=== PATIENT | female | born 1935 | race Caucasian/White ===

== ENCOUNTER 2018-08-15 18:04 | Emergency (ER) | payer MEDICARE, MEDICAID ==
[2018-08-15] MEDS ORDERED: Albuterol/Ipratropium 3.0-0.5 MG/3 ML Neb Soln NEB ONE (18:09)
[2018-08-15 18:57] LABS: CHLORIDE,CL 99 mmol/L (98-107); SODIUM,NA 135 mmol/L (136-145)
--- NOTE | 2018-08-15 19:23 | EDM.PDOC ---
ED HPI GENERAL MEDICAL PROBLEM - General Chief Complaint: Respiratory Problem Stated Complaint: SOB, cough, congestion Time Seen by Provider: 08/15/18 18:14 Source of Information: Reports: Patient History Limitations: Reports: No Limitations - History of Present Illness INITIAL COMMENTS - FREE TEXT/NARRATIVE: Patient comes to ER complaining of persistent feeling of phlegm in central chest since being diagnosed with pneumonia around [place]. Was inpatient at [facility] at the time, discharged New Years Day. She complains of feeling congested since then. Mucinex does not help. No fevers noted. No chills. No significant weight change. She is eating and drinking well per self report. Intermittent frontal headache noted, currently headache-free. No other acute pain changes. At times feels SOB. Denies any specific pattern with this and admits that it is a long standing problem and does not have an acute change. Can feel "hot" when she has her SOB spells. These go away on their own. Denies weakness. No /UTI complaints. No neuro changes other than intermittent tingling in both feet. She was told by [facility] that she may have some early peripheral neuropathy. Cough is not significantly productive. No GI changes. No other acute changes per patient during ROS. - Related Data Allergies Allergy/AdvReac Type Severity Reaction Status Date / Time codeine Allergy Cannot Verified 08/15/18 18:05 Remember Home Meds: Home Meds Cholecalciferol (Vitamin D3) [Vitamin D3] 2,000 unit PO DAILY 10/01/14 [History] Fish Oil/[place]-3 Fatty Acids [Fish Oil] 3 cap PO DAILY 10/01/14 [History] Flaxseed/Omega3,6,9/Fatty Acid [Flax Seed Oil 1,300 mg Softgel] 1,200 mg PO DAILY 10/01/14 [History] Fluticasone Propionate [Flonase] 2 sprays NASBOTH DAILY PRN 10/01/14 [History] Garlic 1,000 mg PO DAILY 10/01/14 [History] Omeprazole [Prilosec] 20 mg PO DAILY 10/01/14 [History] amLODIPine [Norvasc] 5 mg PO DAILY 10/01/14 [History] Albuterol/Ipratropium [DuoNeb 3.0-0.5 MG/3 ML] 3 ml NEB ASDIRECTED PRN 06/18/18 [History] Aspirin 81 mg PO DAILY 06/18/18 [History] Chlorpheniramine/Dextromethorp [Cough-Cold Hbp Tablet] 1 each PO Q4HR 06/18/18 [ History] Losartan [Cozaar] 50 mg PO DAILY 08/15/18 [History] Metoprolol Succinate [Toprol Xl] 50 mg PO DAILY 08/15/18 [History] Past Medical History HEENT History: Reports: Allergic Rhinitis, Hard of Hearing, Impaired Vision, Other (See Below) Other HEENT History: She has been noncompliant with her glasses. No current hearing aide therapy with moderate bilateral presbycusis Cardiovascular History: Reports: Cardiomyopathy, High Cholesterol, Hypertension , PVD, Other (See Below) Other Cardiovascular History: Mild bilateral carotid occlusive disease. Grade 1 diastolic dysfunction by echocardiogram with mild left ventricular hypertrophy. Respiratory History: Reports: Bronchitis, Recurrent, COPD, Intubation, Previous , Pneumonia, Recurrent Gastrointestinal History: Reports: Colon Polyp, Gastritis, GERD, Hemorrhoids, Hiatal Hernia, Other (See Below) Other Gastrointestinal History: History of recurrent diffuse colonic polyps since 2002 including removal of mild dysplastic rectal polyp at that time with history of tubular adenomas, hyperplastic colonic polyps and adenomatous colonic polyps. Anal warts. Genitourinary History: Reports: None, Urinary Incontinence MEDICAL AIDE History: Reports: Dysfunctional Uterine Bleeding, , Spontaneous Other MEDICAL AIDE History: First trimester SAB requiring D&C as below. Otherwise, Full term without complications during pregnancies or deliveries. Menopause at age 48. Possible previous dysfunctional uterine bleeding? Musculoskeletal History: Reports: Arthritis, Back Pain, Chronic, Osteoarthritis , Osteoporosis, RA Neurological History: Reports: Concussion, Head Trauma, Neuropathy, Peripheral ( suspected), Other (See Below) Other Neuro History: Head concussion age 8. Cerebral microvascular disease by CT scan. Psychiatric History: Reports: Anxiety, Depression Endocrine/Metabolic History: Reports: Osteopenia, Osteoporosis Hematologic History: Reports: None Immunologic History: Reports: None Oncologic (Cancer) History: Reports: None Dermatologic History: Reports: None - Infectious Disease History Other Infectious Disease History: She is uncertain about her childhood diseases. - Past Surgical History Head Surgeries/Procedures: Reports: None HEENT Surgical History: Reports: None, Oral Surgery, Other (See Below) Other HEENT Surgeries/Procedures: Complete upper dental extractions with multiple lower dental extractions Cardiovascular Surgical History: Reports: None Respiratory Surgical History: Reports: None GI Surgical History: Reports: Colonoscopy, Polypectomy, Other (See Below) Other GI Surgeries/Procedures: Multiple excision of colonic polyps as above with colonoscopies on 05/08/10, and 12/11/02. Hemorrhoidectomy with colonoscopy in 2002. Appendectomy at an unknown age Female Surgical History: Reports: D&C, Other (See Below) Other Female Surgeries/Procedures: D&C for SAB as above with possible additional D&C secondary to dysfunctional uterine bleeding? Endocrine Surgical History: Reports: None Neurological Surgical History: Reports: None Musculoskeletal Surgical History: Reports: None Oncologic Surgical History: Reports: None Dermatological Surgical History: Reports: None - Past Imaging History Past Imaging History: Reports: Cardiac Echo (Last echocardiogram on 10/11/17 with ejection fraction of 5560 percent with otherwise findings as above. Previous echocardiogram on 01/26/11.), Carotid US (01/26/11), CAT Scan (CT of the abdomen and pelvis on 05/03/07.), DEXA Scan (01/26/11 and 10/08/06), HIDA Scan ( Negative on 10/14/06), Mammogram (Last on 01/05/11), MRI (MRI of the abdomen and pelvis on 05/14/08.), Ultrasound (Gallbladder ultrasound on 04/15/11 and 10/01/06. ) Social & Family History - Family History HEENT: Reports: None Respiratory: Reports: None GI: Reports: Colon Polyps, Other (See Below) Other GI Family History: Multiple family members on maternal and paternal side with history of colonic polyps, including in sister : Reports: None OBGYN: Reports: None Musculoskeletal: Reports: None Neurological: Reports: CVA, Other (See Below) Other Neurological Family History: Sister with CVA Psychiatric: Reports: None Endocrine/Metabolic: Reports: Hypothyroidism, Other (See Below) Other Endocrine/Metabolic Family History: Son with hypothyroidism. Hematologic: Reports: None Immunologic: Reports: None Dermatologic: Reports: None Oncologic: Reports: Breast, Other (See Below) Other Oncologic Family History: Mother with fatal breast cancer at age 73 - Tobacco Use Smoking Status *Q: Former Smoker (quit age 59) - Caffeine Use Caffeine Use: Reports: Coffee (4 cups per day), Tea (1 cup per day). 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 ED EXAM, GENERAL - Physical Exam Exam: See Below Exam Limited By: No Limitations General Appearance: Alert, WD/WN, No Apparent Distress, Anxious Eye Exam: Bilateral Eye: EOMI, PERRL Ears: Normal External Exam Nose: Normal Inspection Throat/Mouth: Normal Inspection, Normal Oropharynx, Normal Voice, No Airway Compromise Head: Atraumatic, Normocephalic Neck: Normal Inspection, Supple, Non-Tender, Full Range of Motion. No: Lymphadenopathy (L), Lymphadenopathy (R) Respiratory/Chest: No Respiratory Distress, Lungs Clear, No Accessory Muscle Use , Chest Non-Tender, Decreased Breath Sounds (throughout) Cardiovascular: Normal Peripheral Pulses, Regular Rate, Rhythm, No Edema, No Murmur Peripheral Pulses: 2+: Radial (L), Radial (R) GI/Abdominal: Normal Bowel Sounds, Soft, Non-Tender, No Distention (Female) Exam: Deferred Rectal (Female) Exam: Deferred Back Exam: Normal Inspection. No: CVA Tenderness (L), CVA Tenderness (R), Paraspinal Tenderness, Vertebral Tenderness Extremities: Normal Inspection, Non-Tender, No Pedal Edema, Normal Capillary Refill Neurological: Alert, Oriented, Normal Cognition, No Motor/Sensory Deficits Psychiatric: Anxious Skin Exam: Warm, Dry, Intact, Normal Color Course - Vital Signs Last Recorded V/S: Last Vital Signs Temp 36.6 C 08/15/18 18:05 Pulse 74 08/15/18 18:35 Resp 18 08/15/18 18:35 BP 134/78 08/15/18 18:35 Pulse Ox 94 L 08/15/18 18:35 - Orders/Labs/Meds Orders: Active Orders 24 hr Category Date Time Status RT Aerosol Therapy [RC] ASDIRECTED Care 08/15/18 18:10 Active Chest 2V [CR] Stat Exams 08/15/18 18:21 Taken UA W/MICROSCOPIC [URIN] Stat Lab 08/15/18 18:21 Ordered Labs: Laboratory Tests 08/15/18 08/15/18 08/15/18 Range/Units 18:30 18:30 18:30 WBC 6.8 (4.0-10.2) K/uL RBC 4.24 (3.77-5.09) M/uL Hgb 13.3 (11.7-15.5) g/dL Hct 39.9 (34.0-46.0) % MCV 94.1 (84.0-98.0) fL MCH 31.4 (28.2-33.3) pg MCHC 33.3 (31.7-36.0) g/dL RDW 13.0 (11.2-14.1) % Plt Count 249 (150-350) K/uL Neut % (Auto) 56.6 (45.0-80.0) % Lymph % (Auto) 30.7 (10.0-50.0) % [place] % (Auto) 7.6 (2.0-14.0) % Eos % (Auto) 4.1 (0.0-5.0) % Baso % (Auto) 1.0 (0.0-2.0) % Neut # (Auto) 3.87 (1.40-7.00) K/uL Lymph # (Auto) 2.10 (0.50-3.50) K/uL [place] # (Auto) 0.52 (0.00-1.00) K/uL Eos # (Auto) 0.28 (0.00-0.50) K/uL Baso # (Auto) 0.07 (0.00-0.20) K/uL Sodium 135 L (136-145) mmol/L Potassium 3.9 (3.5-5.1) mmol/L Chloride 99 (98-107) mmol/L Carbon Dioxide 31.9 (21.0-32.0) mmol/L BUN 10 (7-18) mg/dL Creatinine 0.64 (0.51-1.17) mg/dL Est Cr Clr Drug Dosing TNP Estimated GFR (MDRD) > 60 mL/min Glucose 93 (74-106) mg/dL Lactic Acid 0.9 (0.4-2.0) mmol/L Calcium 9.1 (8.5-10.1) mg/dL Magnesium 2.0 (1.8-2.4) mg/dL Total Bilirubin 0.3 (0.2-1.0) mg/dL AST 17 (15-37) U/L ALT 30 (12-78) U/L Alkaline Phosphatase 74 (46-116) IU/L NT-Pro-B Natriuret Pep 171 H (0-125) pg/mL Total Protein 7.4 (6.4-8.2) g/dL Albumin 3.5 (3.4-5.0) g/dL Meds: Medications Discontinued Medications Generic Name Dose Route Start Last Admin Trade Name Freq PRN Reason Stop Dose Admin Albuterol/Ipratropium 3 ml 08/15/18 18:09 08/15/18 18:14 Duoneb 3.0-0.5 Mg/3 Ml NEB 08/15/18 18:10 3 ml ONETIME ONE Administration - Radiology Interpretation Free Text/Narrative:: Xray showed chronic changes consistent with COPD. No focal pneumonia/CHF noted. No pneumo. - Re-Assessments/Exams Free Text/Narrative Re-Assessment/Exam: CBC/Chem unremarkable. Na 135 which is usual level for patient. BNP 171 Vital signs stable. Chest xray unremarkable for acute changes. Suspect patient's complaints of central airway congestion likely due to COPD and persistent effects from recent pneumonia. She declined Prednisone. Reviewing patient's meds it appears that she uses her DuoNebs infrequently and complains that her medicine at home is outdated. A single box of DuoNebs was provided from ER stock. She is instructed to use them three times a day for the next week and was told that she could use them 4x daily if needed. She is to see if that improves her above complaint. Patient encouraged to follow up at clinic Wednesday or Wednesday. Suspect anxiety component. Departure - Departure Time of Disposition: 20:09 Disposition: Home, Self-Care 01 Condition: Good Clinical Impression: COPD (chronic obstructive pulmonary disease) Qualifiers: COPD type: COPD with acute lower respiratory infection Qualified Code(s): J44.0 - Chronic obstructive pulmonary disease with acute lower respiratory infection - Discharge Information *PRESCRIPTION DRUG MONITORING PROGRAM REVIEWED*: Not Applicable *COPY OF PRESCRIPTION DRUG MONITORING REPORT IN PATIENT WESLY: Not Applicable Instructions: Chronic Obstructive Pulmonary Disease Exacerbation, [id number] , Peripheral Neuropathy Referrals: Bridget Rivera, [employer] [facility] [facility]ER [Primary Care Provider] - Forms: ED Department Discharge Additional Instructions: Make follow up appointment at clinic for Wednesday or next Wednesday for recheck. Use your nebs 3 -4 times a day this week and see if it helps your sensation of increased mucus. You were given a new pack of nebulizer medication tonight. Get additional prescription update from clinic when you follow up . Watch for additional changes and follow up as needed if you have problems. - My Orders Last 24 Hours: My Active Orders 08/15/18 18:10 RT Aerosol Therapy [RC] ASDIRECTED 08/15/18 18:21 Chest 2V [CR] Stat UA W/MICROSCOPIC [URIN] Stat - Assessment/Plan Last 24 Hours: My Active Orders 08/15/18 18:10 RT Aerosol Therapy [RC] ASDIRECTED 08/15/18 18:21 Chest 2V [CR] Stat UA W/MICROSCOPIC [URIN] Stat
[2018-08-16 02:15] VITALS: BP 135/69
== END 2018-08-15 20:32 | disposition home or self-care (01) ==
LOC: LL.ED 18:04
DX: J44.0 Chronic obstructive pulmonary disease with (acute) lower respiratory infection (principal); E78.00 Pure hypercholesterolemia, unspecified; I10 Essential (primary) hypertension; Z88.5 Allergy status to narcotic agent; Z79.899 Other long term (current) drug therapy; Z87.891 Personal history of nicotine dependence
CPT/HCPCS: 36415; 71046; 80053; 81001; 83605; 83735; 83880; 85025; 94640; 99285; J7620-GY

== ENCOUNTER 2019-01-28 14:23 | Emergency (ER) | payer MEDICARE, MEDICAID ==
[2019-01-28 14:37] VITALS: BP 174/78; PULSE 72
--- NOTE | 2019-01-28 15:19 | EDM.PDOC ---
ED HPI GENERAL MEDICAL PROBLEM - General Chief Complaint: General Stated Complaint: general c/o not feeling good Time Seen by Provider: 01/28/19 15:14 Source of Information: Reports: Patient History Limitations: Reports: No Limitations - History of Present Illness INITIAL COMMENTS - FREE TEXT/NARRATIVE: Patient is a 83-year-old who arrived to the ER by herself she drove herself in complaining of not feeling well feeling sick with chills and no pain minimal shortness of breath and without restless feeling Onset: Sudden Duration: Minutes:, Improving Location: Reports: Generalized Severity: Mild Improves with: Reports: Rest Worsens with: Reports: None Associated Symptoms: Reports: No Other Symptoms 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 - Related Data Allergies Allergy/AdvReac Type Severity Reaction Status Date / Time codeine Allergy Cannot Verified 01/28/19 14:32 Remember Home Meds: Home Meds Cholecalciferol (Vitamin D3) [Vitamin D3] 2,000 unit PO DAILY 10/01/14 [History] Fish Oil/[place]-3 Fatty Acids [Fish Oil] 3 cap PO DAILY 10/01/14 [History] Flaxseed/Omega3,6,9/Fatty Acid [Flax Seed Oil 1,300 mg Softgel] 1,200 mg PO DAILY 10/01/14 [History] Fluticasone Propionate [Flonase] 2 sprays NASBOTH DAILY PRN 10/01/14 [History] Garlic 1,000 mg PO DAILY 10/01/14 [History] Omeprazole [Prilosec] 20 mg PO DAILY 10/01/14 [History] Albuterol/Ipratropium [DuoNeb 3.0-0.5 MG/3 ML] 3 ml NEB ASDIRECTED PRN 06/18/18 [History] Aspirin 81 mg PO DAILY 06/18/18 [History] Chlorpheniramine/Dextromethorp [Cough-Cold Hbp Tablet] 1 each PO Q4HR PRN [History] Losartan [Cozaar] 50 mg PO DAILY 08/15/18 [History] Metoprolol Succinate [Toprol Xl] 50 mg PO DAILY 08/15/18 [History] Past Medical History HEENT History: Reports: Allergic Rhinitis, Hard of Hearing, Impaired Vision, Other (See Below) Other HEENT History: She has been noncompliant with her glasses. No current hearing aide therapy with moderate bilateral presbycusis Cardiovascular History: Reports: Cardiomyopathy, High Cholesterol, Hypertension , PVD, Other (See Below) Other Cardiovascular History: Mild bilateral carotid occlusive disease. Grade 1 diastolic dysfunction by echocardiogram with mild left ventricular hypertrophy. Respiratory History: Reports: Bronchitis, Recurrent, COPD, Intubation, Previous , Pneumonia, Recurrent Gastrointestinal History: Reports: Colon Polyp, Gastritis, GERD, Hemorrhoids, Hiatal Hernia, Other (See Below) Other Gastrointestinal History: History of recurrent diffuse colonic polyps since 2002 including removal of mild dysplastic rectal polyp at that time with history of tubular adenomas, hyperplastic colonic polyps and adenomatous colonic polyps. Anal warts. 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 Otherwise, Full term without complications during pregnancies or deliveries. Menopause at age 48. Possible previous dysfunctional uterine bleeding? Musculoskeletal History: Reports: Arthritis, Back Pain, Chronic, Osteoarthritis , Osteoporosis, RA Neurological History: Reports: Concussion, Head Trauma, Neuropathy, Peripheral, Other (See Below) Other Neuro History: Head concussion age 8. Cerebral microvascular disease by CT scan. Psychiatric History: Reports: Anxiety, Depression Endocrine/Metabolic History: Reports: Osteopenia, Osteoporosis Hematologic History: Reports: None Immunologic History: Reports: None Oncologic (Cancer) History: Reports: None Dermatologic History: Reports: None - Infectious Disease History Other Infectious Disease History: She is uncertain about her childhood diseases. - Past Surgical History Head Surgeries/Procedures: Reports: None HEENT Surgical History: Reports: None, Oral Surgery, Other (See Below) Other HEENT Surgeries/Procedures: Complete upper dental extractions with multiple lower dental extractions Cardiovascular Surgical History: Reports: None Respiratory Surgical History: Reports: None GI Surgical History: Reports: Colonoscopy, Polypectomy, Other (See Below) Other GI Surgeries/Procedures: Multiple excision of colonic polyps as above with colonoscopies on 05/08/10, and 12/11/02. Hemorrhoidectomy with colonoscopy in 2002. Appendectomy at an unknown age Female Surgical History: Reports: D&C, Other (See Below) Other Female Surgeries/Procedures: D&C for SAB as above with possible additional D&C secondary to dysfunctional uterine bleeding? Endocrine Surgical History: Reports: None Neurological Surgical History: Reports: None Musculoskeletal Surgical History: Reports: None Oncologic Surgical History: Reports: None Dermatological Surgical History: Reports: None - Past Imaging History Past Imaging History: Reports: Cardiac Echo (Last echocardiogram on 10/11/17 with ejection fraction of 5560 percent with otherwise findings as above. Previous echocardiogram on 01/26/11.), Carotid US (01/26/11), CAT Scan (CT of the abdomen and pelvis on 05/03/07.), DEXA Scan (01/26/11 and 10/08/06), HIDA Scan ( Negative on 10/14/06), Mammogram (Last on 01/05/11), MRI (MRI of the abdomen and pelvis on 05/14/08.), Ultrasound (Gallbladder ultrasound on 04/15/11 and 10/01/06. ) Social & Family History - Family History HEENT: Reports: None Respiratory: Reports: None GI: Reports: Colon Polyps, Other (See Below) Other GI Family History: Multiple family members on maternal and paternal side with history of colonic polyps, including in sister : Reports: None OBGYN: Reports: None Musculoskeletal: Reports: None Neurological: Reports: CVA, Other (See Below) Other Neurological Family History: Sister with CVA Psychiatric: Reports: None Endocrine/Metabolic: Reports: Hypothyroidism, Other (See Below) Other Endocrine/Metabolic Family History: Son with hypothyroidism. 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, 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.) ED [facility] GENERAL - Review of Systems Review Of Systems: See Below Constitutional: Reports: Chills Respiratory: Reports: Shortness of Breath Cardiovascular: Reports: No Symptoms Endocrine: Reports: No Symptoms GI/Abdominal: Reports: No Symptoms : Reports: No Symptoms Musculoskeletal: Reports: No Symptoms Skin: Reports: No Symptoms Neurological: Reports: No Symptoms Psychiatric: Reports: No Symptoms Hematologic/Lymphatic: Reports: No Symptoms Immunologic: Reports: No Symptoms ED EXAM, GENERAL - Physical Exam Exam: See Below Exam Limited By: No Limitations General Appearance: Alert, WD/WN, No Apparent Distress, Anxious, Mild Distress Ears: Normal External Exam, Normal Canal, Hearing Grossly Normal, Normal TMs Ear Exam: Bilateral Ear: Auricle Normal, Canal Normal, TM normal Nose: Normal Inspection, Normal Mucosa, No Blood Throat/Mouth: Normal Inspection, Normal Lips, Normal Teeth, Normal Gums, Normal Oropharynx, Normal Voice, No Airway Compromise Head: Atraumatic, Normocephalic Neck: Normal Inspection, Supple, Non-Tender, Full Range of Motion Respiratory/Chest: No Respiratory Distress, Lungs Clear, Normal Breath Sounds, No Accessory Muscle Use, Chest Non-Tender Cardiovascular: Normal Peripheral Pulses, Regular Rate, Rhythm, No Edema, No Gallop, No JVD, No Murmur, No Rub GI/Abdominal: Normal Bowel Sounds, Soft, Non-Tender, No Organomegaly, No Distention, No Abnormal Bruit, No Mass Back Exam: Decreased Range of Motion Extremities: Normal Inspection, Normal Range of Motion, Non-Tender, Normal Capillary Refill, No Pedal Edema Neurological: Alert, Oriented, CN II-XII Intact, Normal Cognition, Normal Gait, Normal Reflexes, No Motor/Sensory Deficits Psychiatric: Anxious Skin Exam: Warm, Dry, Intact, Normal Color, No Rash Lymphatic: No Adenopathy Course - Vital Signs Last Recorded V/S: Last Vital Signs Temp 97.3 F 01/28/19 14:36 Pulse 72 01/28/19 14:36 Resp 20 01/28/19 14:36 BP 174/78 H 01/28/19 14:36 Pulse Ox 96 01/28/19 14:36 - Orders/Labs/Meds Orders: Active Orders 24 hr Category Date Time Status Chest 2V [CR] Stat Exams 01/28/19 14:43 Taken Labs: Laboratory Tests 01/28/19 01/28/19 01/28/19 Range/Units 14:57 15:05 15:05 WBC 9.3 (4.0-10.2) K/uL RBC 4.31 (3.77-5.09) M/uL Hgb 14.1 (11.7-15.5) g/dL Hct 42.1 (34.0-46.0) % MCV 97.7 D (84.0-98.0) fL MCH 32.7 (28.2-33.3) pg MCHC 33.5 (31.7-36.0) g/dL RDW 12.6 (11.2-14.1) % Plt Count 329 D (150-350) K/uL Neut % (Auto) 66.3 (45.0-80.0) % Lymph % (Auto) 23.9 (10.0-50.0) % [place] % (Auto) 7.6 (2.0-14.0) % Eos % (Auto) 1.7 (0.0-5.0) % Baso % (Auto) 0.5 (0.0-2.0) % Neut # (Auto) 6.19 (1.40-7.00) K/uL Lymph # (Auto) 2.23 (0.50-3.50) K/uL [place] # (Auto) 0.71 (0.00-1.00) K/uL Eos # (Auto) 0.16 (0.00-0.50) K/uL Baso # (Auto) 0.05 (0.00-0.20) K/uL Sodium 135 L (136-145) mmol/L Potassium 4.1 (3.5-5.1) mmol/L Chloride 98 (98-107) mmol/L Carbon Dioxide 33.7 H (21.0-32.0) mmol/L BUN 11 (7-18) mg/dL Creatinine 0.68 (0.51-1.17) mg/dL Est Cr Clr Drug Dosing 46.47 mL/min Estimated GFR (MDRD) > 60 mL/min Glucose 109 H (74-106) mg/dL Calcium 8.7 (8.5-10.1) mg/dL Total Bilirubin 0.3 (0.2-1.0) mg/dL AST 16 (15-37) U/L ALT 24 (12-78) U/L Alkaline Phosphatase 72 (46-116) IU/L Total Protein 7.5 (6.4-8.2) g/dL Albumin 3.6 (3.4-5.0) g/dL Specimen Type Urinvoid Urine Color Yellow Urine Appearance Clear Urine pH 5.5 (5.0-9.0) Ur Specific [place] 1.015 (1.005-1.030) Urine Protein Negative (NEGATIVE) mg/dL Urine Glucose (UA) Negative (NEGATIVE) mg/dL Urine Ketones Negative (NEGATIVE) mg/dL Urine Occult Blood Negative (NEGATIVE) Urine Nitrite Negative (NEGATIVE) Urine Bilirubin Negative (NEGATIVE) Urine Urobilinogen 0.2 (0.2-1.0) E.U./dL Ur Leukocyte Esterase Negative (NEGATIVE) Urine RBC 0-5 /HPF Urine WBC 0-5 /HPF Ur Epithelial Cells Few /LPF Urine Bacteria Few (NONE TO FEW) /HPF Departure - Departure Time of Disposition: 15:50 Disposition: Home, Self-Care 01 Condition: Fair Clinical Impression: Weakness generalized - Discharge Information *PRESCRIPTION DRUG MONITORING PROGRAM REVIEWED*: No *COPY OF PRESCRIPTION DRUG MONITORING REPORT IN PATIENT WESLY: No Referrals: Josué Mendez MD [Primary Care Provider] - Forms: ED Department Discharge Care Plan Goals: Patient will be sent home she is to follow-up with her primary next week return to the ER if worsening - My Orders Last 24 Hours: My Active Orders 01/28/19 14:43 Chest 2V [CR] Stat - Assessment/Plan Last 24 Hours: My Active Orders 01/28/19 14:43 Chest 2V [CR] Stat
[2019-01-28 15:24] LABS: CHLORIDE,CL 98 mmol/L (98-107); SODIUM,NA 135 mmol/L (136-145)
== END 2019-01-28 16:05 | disposition home or self-care (01) ==
LOC: LL.ED 14:23
DX: R53.1 Weakness (principal); I10 Essential (primary) hypertension; K21.9 Gastro-esophageal reflux disease without esophagitis; M19.90 Unspecified osteoarthritis, unspecified site; Z79.82 Long term (current) use of aspirin; Z79.899 Other long term (current) drug therapy; Z88.5 Allergy status to narcotic agent; Z87.891 Personal history of nicotine dependence
CPT/HCPCS: 36415; 71046; 80053; 81001; 85025; 99282; 99283-25

== ENCOUNTER 2020-05-16 12:05 | Day surgery (SDC) | payer MEDICARE, MEDICAID ==
[~2020-05-16 12:05] MED LIST: Sodium Chloride 0.9% 10 ML Syringe FLUSH PRN
[2020-05-16] MEDS ORDERED: Lactated Ringers 1,000 ML IV SCH (13:00)
[2020-05-16] MEDS ORDERED: Propofol 200 MG/20 ML SDV ONE ×2 (13:43→13:50)
--- NOTE | 2020-05-16 13:49 | PCM.PN ---
- General Info Date of Service: 05/16/20 - Review of Systems Systems Review Comment:: 84-year-old female referred for colonoscopy. She has been having some rectal bleeding. She states her last colonoscopy was about 7 years ago. She denies any other symptoms at this time. She states her bleeding was painless. She is medically stable to proceed today. I have reviewed her previous H&P and no significant changes are noted. I have discussed the proposed colonoscopy with the patient. Risks such as but not limited to bleeding and GI injury reviewed. She agrees to proceed. - Patient Data Vitals - Most Recent: Last Vital Signs Temp 96.8 F L 05/16/20 12:54 Pulse 77 05/16/20 12:54 Resp 20 05/16/20 12:54 BP 128/69 05/16/20 12:54 Pulse Ox 97 05/16/20 12:54 Weight - Most Recent: 76.204 kg Med Orders - Current: Current Medications Lactated Ringer's (Ringers, Lactated) 1,000 mls @ 125 mls/hr IV ASDIRECTED KORTNEY Last Admin: 05/16/20 12:55 Dose: 125 mls/hr Documented by: Sodium Chloride (Saline Flush) 10 ml FLUSH ASDIRECTED PRN PRN Reason: Keep Vein Open Discontinued Medications Propofol (Diprivan 20 Ml) Confirm Administered Dose 400 mg .ROUTE .STK-MED ONE Stop: 05/16/20 13:44 Sepsis Event Note - Focused Exam Vital Signs: Vital Signs Temp Pulse Resp BP Pulse Ox 05/16/20 12:54 96.8 F L 77 20 128/69 97 - Problem List Review Problem List Initiated/Reviewed/Updated: Yes - My Orders Last 24 Hours: My Active Orders 05/16/20 13:00 Lactated Ringers [Ringers, Lactated] 1,000 ml IV ASDIRECTED - Assessment Assessment:: Hematochezia - Plan Plan:: Colonoscopy
--- NOTE | 2020-05-16 14:35 | PCM.OPNOTE ---
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 Rectal polyp Extensive sigmoid diverticulosis Pre Op Diagnosis: Hematochezia Post-Op Diagnosis: Rectal mass-probable carcinoma. Rectal polyp. Sigmoid diverticulosis Anesthesia Technique: [facility] [place] Primary Surgeon: Chris Brasher Pathology: Biopsies of rectal mass Rectal polyp EBL in mLs: 4 Complications: None Condition: Good
--- NOTE | 2020-05-16 15:31 | OR ---
Date of Procedure: 05/16/2020 PREOPERATIVE DIAGNOSIS: Hematochezia. POSTOPERATIVE DIAGNOSES: 1. Rectal mass - probable carcinoma. 2. Rectal polyp. 3. Extensive sigmoid diverticulosis. OPERATION PERFORMED: Colonoscopy with biopsy and polypectomy. INDICATIONS FOR SURGERY: This 84-year-old female was referred for a colonoscopy because of recent episodes of painless rectal bleeding. FINDINGS: In the patient's rectum, there is a hard mass with central ulceration on the anterior wall of the rectum. Its distal aspect extends to approximately 2 cm from the anal verge and it is 5 to 7 cm in size. The mass is hard, raised, and grossly consistent with a carcinoma. In the more proximal rectum, approximately 10 cm from the anal verge, there is a 1-cm soft semipedunculated polyp. The patient also has extensive diverticulosis of the sigmoid colon with multiple large diverticula and some tortuosity. The more proximal colon appears normal except for scattered diverticula. DESCRIPTION OF PROCEDURE: The patient was taken to the operating room. She was given intravenous sedation, and with her in the left lateral decubitus position, digital rectal exam was performed. The colonoscope was inserted into the rectum. Retroflexed examination of the rectal canal was performed. In the distal rectum, the above-described mass is identified. Multiple biopsies of this mass were taken to obtain a diagnosis. The scope was then advanced further in the rectum where the above-described rectal polyp was identified. This was removed with a cautery snare and retrieved into a polyp trap. The scope was then carefully advanced under direct visualization through the remainder of the colon. Passage of the scope through the sigmoid region was difficult because of extensive diverticulosis, was eventually able to be safely performed with careful scope manipulation. The cecum was reached and carefully identified including the appendiceal orifice and ileocecal valve. The light was also noted to transilluminate the abdominal wall in the right lower quadrant. After examining the cecum, the scope was slowly withdrawn sequentially re-examining the colonic segments until the entire colon and rectum had been fully examined. The scope was removed and the patient was taken from the operating room in satisfactory condition. ESTIMATED BLOOD LOSS: 4 mL. COMPLICATIONS: None. PROGNOSIS: Good. RASHI Brasher MD /[id number]
[2020-05-16 17:28] VITALS: BP 151/77; PULSE 79
== END 2020-05-16 16:10 | disposition home or self-care (01) ==
LOC: LL.SDS 12:05
PROVIDERS: ATTEND Surgery
DX: C20 Malignant neoplasm of rectum (principal); K57.30 Diverticulosis of large intestine without perforation or abscess without bleeding; D12.8 Benign neoplasm of rectum; J44.9 Chronic obstructive pulmonary disease, unspecified; I10 Essential (primary) hypertension; Z01.812 Encounter for preprocedural laboratory examination; Z20.828 Contact with and (suspected) exposure to other viral communicable diseases; Z87.891 Personal history of nicotine dependence; Z79.899 Other long term (current) drug therapy
CPT/HCPCS: 00811; 45380; 45385; 88305; 88341; 88342; J2704; J7120; U0002

== ENCOUNTER 2020-07-18 13:55 | Inpatient (IN) | payer MEDICARE, MEDICAID ==
[2020-07-18] MEDS ORDERED: Omeprazole 20 MG Cap.CR PO PRN (16:11)
[2020-07-18] MEDS ORDERED: oxyCODONE 5 MG Tab PO PRN (16:11)
[2020-07-18] MEDS ORDERED: Loperamide 2 MG Tab PO PRN (16:11)
[2020-07-18] MEDS ORDERED: Aspirin 325 MG Tab.EC PO PRN (16:11)
[2020-07-18] MEDS ORDERED: Fluticasone Propionate Nasal Spray 16 GM Bottle NASBOTH PRN (16:11)
[2020-07-18] MEDS ORDERED: Magnesium Oxide 400 MG Tab PO SCH (16:15)
--- NOTE | 2020-07-18 16:40 | PCM.HP.2 ---
H&P History of Present Illness - General Date of Service: 07/18/20 Admit Problem/Dx: Admission Diagnosis/Problem Admission Diagnosis/Problem Weakness Source of Information: Patient, Family (Patient's daughter), Old Records ([facility] chart/EMR), Other (Limited transfer records from [facility]) History Limitations: Reports: No Limitations - History of Present Illness Initial Comments - Free Text/Narative: The patient was brought to our facility via private automobile by her daughter for direct admission into our swing bed unit for further strengthening through physical therapy and Occupational Therapy. Note that the patient did have a distal rectal adenocarcinoma removed with subsequent colostomy placement on 07/12/2020 as below. Her colostomy is performing well. No recent history of abdominal pain, heartburn, nausea, diarrhea, melena, gross hematochezia, or any food intolerance, including fatty foods, etc.. She has been having some nonspecific mild dysuria with her Montes catheter discontinued a couple days ago. She denies any gross hematuria, colic, or other UTI symptoms. The patient denies any chest pain/pressure, heart flutter, dizziness, orthostasis, orthopnea, diaphoresis, paresthesias, recent decreased exercise tolerance, or any other anginal-type symptoms. The patient also denies any recent fever, wheezing, dyspnea, etc., although a mild nonproductive cough during the last couple of days with negative COVID-19 test at [facility] prior to transfer to this facility. She denies any recent significant postoperative pain, etc. and has not been using her oxycodone for the last few days. Onset of Symptoms: Reports: Gradual Symptom Onset Date: 07/12/20 Duration of Symptoms: Reports: Improving Location: Reports: Other (No significant postoperative pain) Quality: Reports: Ache Severity: Mild Improves with: Reports: None Worsens with: Reports: None Context: Reports: Other (Recent surgery as above). Denies: Trauma Associated Symptoms: Reports: Cough, Weakness (Normal postoperative). Denies: Confusion, Chest Pain, cough w sputum, Diaphoresis, Fever/Chills, Headaches, Loss of Appetite, Malaise, Nausea/Vomiting, Shortness of Breath Rectal Pain Score (Numeric/FACES): 3 - Related Data Allergies/Adverse Reactions: Allergies Allergy/AdvReac Type Severity Reaction Status Date / Time codeine Allergy Cannot Verified 05/16/20 13:20 Remember Home Medications: Home Meds Fluticasone Propionate [Flonase] 2 sprays NASBOTH BID PRN 10/01/14 [History] Omeprazole [Prilosec] 20 mg PO DAILY PRN 10/01/14 [History] Aspirin 81 mg PO DAILY 06/18/18 [History] Losartan [Cozaar] 50 mg PO DAILY 08/15/18 [History] Metoprolol Succinate [Toprol Xl] 50 mg PO DAILY 08/15/18 [History] Oxybutynin [Oxybutynin ER] 5 mg PO BEDTIME 05/15/20 [History] Albuterol [Take Home: Albuterol 18 GM, 1 INH Pack] 1 - 2 puff INH Q4HR PRN 05/16/20 [History] Acetaminophen 500 mg PO Q4H PRN 07/18/20 [History] Aspirin [Aspirin EC] 1 tab PO Q4H PRN 07/18/20 [History] Cholecalciferol (Vitamin D3) [Vitamin D3] 25 mcg PO DAILY 07/18/20 [History] Garlic 1 cap PO DAILY 07/18/20 [History] L. Acidophilus/L.bulgaricus [Lactobacillus Tablet] 1 cap PO DAILY 07/18/20 [History] Loperamide [Imodium] 1 mg PO ASDIRECTED PRN 07/18/20 [History] Magnesium Oxide 250 mg PO Q2D 07/18/20 [History] Multivit-Min/Iron/Folic/Lutein [Centrum Silver Women Tablet] 1 tab PO DAILY 07/18/20 [History] Nystatin [Nystatin Crm] 1 applic TOP BID 07/18/20 [History] [place]-3 Fatty Acids/Fish Oil [Fish Oil 1,000 mg Capsule] 1 cap PO DAILY 07/18/20 [History] Sennosides/Docusate Sodium [Senna Plus 8.6-50 mg Tablet] 1 tab PO BID PRN 07/18/20 [History] Vitamin E 1 cap PO DAILY 07/18/20 [History] oxyCODONE 5 mg PO Q6H PRN 07/18/20 [History] Past Medical History HEENT History: Reports: Allergic Rhinitis, Hard of Hearing, Impaired Vision, Other (See Below). Denies: Cataract, Glaucoma, Macular Degeneration, Otitis Media, Retinal Detachment Other HEENT History: She has been noncompliant with her glasses. No current hearing aide therapy with moderate bilateral presbycusis Cardiovascular History: Reports: Arrhythmia, High Cholesterol, Hypertension. Denies: Afib, Aneurysm, Blood Clots/VTE/DVT, CAD, Cardiomyopathy, Heart Failure, Heart Murmur, VA, Syncope Other Cardiovascular History: Mild bilateral carotid occlusive disease. Grade 1 diastolic dysfunction by echocardiogram with mild left ventricular hypertrophy. History of PSVT. Respiratory History: Reports: Bronchitis, Recurrent, COPD, Intubation, Previous, Pneumonia, Recurrent. Denies: Asthma, Intubation, Difficult, PE, Pneumothorax, Sleep Apnea, TB Gastrointestinal History: Reports: Chronic Constipation, Colon Polyp, Diverticulosis, GERD, GI Bleed. Denies: Celiac Disease, Cholelithiasis, Gastritis, Hepatitis, Hiatal Hernia, Inflammatory Bowel Disease, Irritable Bowel Syndrome, Jaundice, Pancreatitis, PUD Other Gastrointestinal History: Diffuse diverticulosis. 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 Previous minimal lower GI bleed secondary to this rectal adenocarcinoma, which was initially diagnosed on 05/16/2020 by colonoscopy as below. Note previous history of recurrent diffuse colonic polyps since 2002 including removal of mild dysplastic rectal polyp at that time with history of tubular adenomas, hyperplastic colonic polyps and adenomatous colonic polyps. Anal warts. Genitourinary History: Reports: Other (See Below). Denies: Acute Renal Failure, Chronic Renal Insuffiency, Renal Calculus, Retention, Urinary, STD, Urinary Incontinence, UTI, Recurrent Other Genitourinary History: urinary urgency COOK MANAGER History: Reports: Dysfunctional Uterine Bleeding, , Spontaneous : 3 Para: 2 LMP (Approximate): Other (See Below) Other OB/BYN History: First trimester SAB requiring D&C as below. Otherwise, Full term without complications during pregnancies or deliveries. Menopause at age 48. Possible previous dysfunctional uterine bleeding? Musculoskeletal History: Reports: Arthritis, Back Pain, Chronic, Neck Pain, Chronic, Osteoarthritis, Osteoporosis, RA, Other (See Below). Denies: Amputation, Fracture, Gout, SLE Other Musculoskeletal History: Mild to moderate kyphosis. Neurological History: Reports: Concussion, Head Trauma. Denies: Alzheimers Disease, Brain Injury, Cerebral Aneurysms, CVA, Migraines, MS, Neuropathy, Peripheral, Parkinson's, Seizure, TIA, Vertigo Other Neuro History: Head concussion age 8. Cerebral microvascular disease by CT scan. Psychiatric History: Reports: Anxiety, Depression. Denies: Abuse, Victim of, ADD, ADHD, Addiction, Alzheimers Disease, Dementia, Psych Hospitalization(s), Psychosis, PTSD, Suicide Attempt, Suicidal Ideation Endocrine/Metabolic History: Reports: Hypokalemia, Hypomagnesemia, Obesity/BMI 30+, Osteopenia, Osteoporosis, Other (See Below). Denies: Diabetes, Gestational, Diabetes, Type I, Diabetes, Type II, Diabetes Mellitus, Type 3c, Hypothyroidism, IDDM Other Endocrine/Metabolic History: Hypocalcemia. Hypoalbuminemia. Hematologic History: Reports: Anemia. Denies: B12 Deficiency, Blood Transfusion(s), Iron Deficiency Immunologic History: Reports: None. Denies: AIDS, HIV, SLE Oncologic (Cancer) History: Reports: Colon, Other (See Below). Denies: Basal Cell Carcinoma, Cervix, Hodgkin's Lymphoma, Leukemia, Lymphoma, Malignant Melanoma, Metastatic, Non-Hodgkin's Lymphoma, Ovarian, Squamous Cell Carcinoma, Uterine Other Oncologic History: Rectal adenocarcinoma as above. Dermatologic History: Reports: None. Denies: Eczema, Psoriasis - Infectious Disease History Infectious Disease History: Reports: Other (See Below). Denies: C-Difficile, Meningitis, Mononucleosis, MRSA, Novel Coronavirus, Rubella, TB, VRE Other Infectious Disease History: She is uncertain about her childhood diseases. - Past Surgical History Head Surgeries/Procedures: Reports: None HEENT Surgical History: Reports: Oral Surgery, Other (See Below). Denies: Adenoidectomy, Cataract Surgery, Eye Surgery, Laser Surgery, LASIK, Myringotomy w Tube(s), Naso-Sinus Surgery, Tonsillectomy Other HEENT Surgeries/Procedures: Complete upper teeth extraction with multiple lower teeth extractions in the patient only wearing upper dentures. Cardiovascular Surgical History: Reports: None. Denies: Varicose Respiratory Surgical History: Reports: None. Denies: Thoracentesis GI Surgical History: Reports: Appendectomy, Colon, Colonoscopy, Polypectomy, Other (See Below). Denies: Cholecystectomy, EGD, Hernia, Abdominal, Hernia, Inguinal, Hernia Repair/Other Other GI Surgeries/Procedures: Abdominal perineal resection with partial colectomy of the descending colon and mesorectal excision of distal rectal adenocarcinoma with concomitant colostomy placement on 07/12/2020. Multiple previous colonoscopies including previous polypectomies as above. Last colonoscopy on 05/16/2020 with evidence of recurrent distal rectal polyp and additional probable 2.5 cm distal rectal carcinoma requiring surgery as above. Previous colonoscopies on 05/08/2010 and 12/11/2012. Hemorrhoidectomy with colonoscopy in 2002. Appendectomy at an unknown age. Female Surgical History: Reports: D&C, Dilitation & Evacuation, Other (See Below). Denies: Breast Biopsy, Section, Hysterectomy, Salpingo- Oophorectomy, Tubal Ligation Other Female Surgeries/Procedures: D&Cs for SAB as above with possible additional D&C secondary to dysfunctional uterine bleeding. Endocrine Surgical History: Reports: None. Denies: Thyroid Biopsy Neurological Surgical History: Reports: None. Denies: C-Spine, Discectomy, Laminectomy, Lumbar Spine, Sacral Spine, Spinal Fusion, Thoracic Spine, Vertebroplasty Musculoskeletal Surgical History: Reports: None, Joint Replacement. Denies: Arthroscopic Procedure, Carpal Tunnel, Ganglion Cyst, ORIF, Shoulder Surgery Oncologic Surgical History: Reports: None Dermatological Surgical History: Reports: None - Past Imaging History Past Imaging History: Reports: Cardiac Echo (Last echocardiogram on 10/11/17 with ejection fraction of 5560 percent with otherwise findings as above. Previous echocardiogram on 01/26/11.), Carotid US (01/26/11), CAT Scan (CT of the abdomen and pelvis on 05/03/07.), DEXA Scan (01/26/11 and 10/08/06), HIDA Scan (Negative on 10/14/06), Mammogram (Last on 01/05/11), MRI (MRI of the abdomen and pelvis on 05/14/08.), Ultrasound (Gallbladder ultrasound on 04/15/11 and 10/01/06.) Social & Family History - Family History HEENT: Reports: Other (See Below). Denies: Glaucoma, Macular Degeneration, Retinal Detachment Other HEENT Family History: Food allergies in brother and sister. Cardiac: Denies: Afib, AICD, Aneurysm, Arrhythmia, Blood Clots/VTE/DVT, CAD, Cardiomyopathy, Heart Failure, High Cholesterol, Hypertension, VA, PVD/COD, Syncope Respiratory: Reports: None. Denies: Asthma, COPD, PE, Pneumothorax, Sleep Apnea GI: Reports: Colon Polyps, Other (See Below). Denies: Celiac Disease, Cholelithiasis, GERD, GI bleed, Inflammatory Bowel Disease, Irritable Bowel Syndrome, PUD Other GI Family History: Multiple family members on maternal and paternal side with history of colonic polyps, including in sister : Reports: None. Denies: Renal Calculus, Renal Disease/Insufficiency OBGYN: Reports: None. Denies: Dysfunctional uterine bleeding, Recurrent Spontaneous Musculoskeletal: Reports: None. Denies: Arthritis, Gout, Osteoarthritis, RA, SLE Neurological: Reports: CVA, Other (See Below). Denies: Alzheimers Disease, Cerebral Aneurysms, Dementia, Migraines, MS, Neuropathy, Peripheral, Parkinson's, Seizure, TIA, Vertigo Other Neurological Family History: Sister with CVA Psychiatric: Reports: None. Denies: Abuse, Victim of, ADD, ADHD, Anxiety, Depression, Psych Hospitalization(s), PTSD, Suicide Attempt Endocrine/Metabolic: Reports: Hypothyroidism, Other (See Below). Denies: Diabetes, Gestational, Diabetes, Type I, Diabetes, type II, Diabetes Mellitus, Type 3c, IDDM Other Endocrine/Metabolic Family History: Son with hypothyroidism. Hematologic: Reports: None. Denies: SLE Immunologic: Reports: None. Denies: AIDS, HIV, SLE Dermatologic: Reports: None. Denies: Eczema, Psoriasis Oncologic: Reports: Breast, Lung, Skin, Other (See Below). Denies: Cervix, Colon, Hodgkin's Lymphoma, Leukemia, Lymphoma, Non-Hodgkin's Lymphoma, Uterine Other Oncologic Family History: Mother with fatal breast cancer at age 73. Brother with unknown type of skin cancer in the facial region. Daughter with lung cancer at age 65 with history of tobacco use. - Tobacco Use Tobacco Use Status *Q: Former Tobacco User Tobacco Use Within Last Twelve Months: No Years of Tobacco use: 43 Packs/Tins Daily: 1 Packs/Tins Daily Comment: Smoked between ages 16 and 59. Used Tobacco, but Quit: Yes Smoking Cessation Information Provided To Patient: No Second Hand Smoke Exposure: No Second Hand Smoke Education Provided: No - Caffeine Use Caffeine Use: Reports: Coffee (4 Cups per day), Tea (1 cup/day). Denies: Energy Drinks, Soda - Alcohol Use Alcohol Use History: Yes Days Per Week of Alcohol Use: 0 Number of Drinks Per Day: 0 Number of Drinks Per Day Comment: History of DWI at age 59 with patient stopping all alcohol use since that time. Previous moderate alcohol use with patient denying previous abuse history, alcohol treatment, etc. 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 Exam - Exam Exam: See Below - Exam Quality Assessment: DVT Prophylaxis. No: Supplemental Oxygen, Central Line/PICC, Urinary Catheter, Skin Breakdown, Restraints General: Alert, Oriented, Cooperative HEENT: Conjunctiva Clear, EACs Clear, EOMI, Hearing Intact, Mucosa Moist & [place], Nares Patent, Normal Nasal Septum, Posterior Pharynx Clear, Pupils Equal, Pupils Reactive, TMs Clear, Other (Complete upper dentures with multiple missing teeth lowers and patient not wearing her partials.), PERRLA. No: Glasses Neck: Supple, Trachea Midline, Full Range of Motion, Carotid Bruit (Mild bilateral carotid bruits). No: Lymphadenopathy, Thyromegaly Lungs: Clear to Auscultation, Normal Respiratory Effort. No: Rub, Wheezing Cardiovascular: Regular Rate, Regular Rhythm, Normal S1, Normal S2. No: Systolic Murmur, Diastolic Murmur, Rubs, Gallop/S3, Gallop/S4 GI/Abdominal Exam: Normal Bowel Sounds, Soft, Non-Tender, No Organomegaly, No Distention, No Abnormal Bruit, No Mass, Pelvis Stable, Other (Obese. Left lower quadrant colostomy shows brown stool.). No: Guarding (Female) Exam: Deferred Rectal (Female) Exam: Deferred Back Exam: Full Range of Motion, Other (Moderate kyphosis). No: CVA Tenderness (L), CVA Tenderness (R), Muscle Spasm, Paraspinal Tenderness, Vertebral Tenderness Extremities: Normal Range of Motion, Non-Tender, Normal Capillary Refill, Pedal Edema (+1 bilateral pedal/pretibial edema). No: Kaylie's Sign Peripheral Pulses: 2+: Radial (L), Radial (R), Dorsalis Pedis (L), Dorsalis Pedis (R) Skin: Other (Operative site and perineum intact clean and dry by history) Neurological: Cranial Nerves Intact Psychiatric: Alert, Normal Affect, Normal Mood. No: Agitated, Hallucinations, Withdrawal Symptoms - Patient Data Lab Results Last 24 hrs: To be conducted in the a.m. on 07/19/2020. Imaging Impressions Last 24 hrs: None - Problem List (1) Rectal adenocarcinoma SNOMED Code(s): 774692677 ICD Code: C20 - MALIGNANT NEOPLASM OF RECTUM Status: Acute Priority: High Current Visit: Yes Onset Date: ~07/12/20 Problem Details: Recently extensive surgery with excision of rectal adenocarcinoma as above. Patient apparently has a follow-up appointment scheduled at [facility] in 1 week. Patient mated to swing bed for further strengthening, PT, OT, and wound care. (2) Weakness generalized SNOMED Code(s): 45071551 ICD Code: R53.1 - WEAKNESS Status: Acute Priority: Medium Current Visit: Yes Onset Date: ~07/12/20 Problem Details: Mild postoperative weakness requiring swing bed care as above. (3) COPD (chronic obstructive pulmonary disease) SNOMED Code(s): 16771449 ICD Code: J44.9 - CHRONIC OBSTRUCTIVE PULMONARY DISEASE, UNSPECIFIED Status: Chronic Priority: Medium Current Visit: Yes Problem Details: No significant COPD exacerbation although recent nonspecific nonproductive cough. Her inhalers will be changed to Combivent on a regular basis with additional Muc inex DM therapy. Consider chest x-ray depending on her clinical course. Note negative COVID-19 screen prior to transfer to this facility. Qualifiers: COPD type: COPD with acute lower respiratory infection Qualified Code(s): J44.0 - Chronic obstructive pulmonary disease with (acute) lower respiratory infection (4) Hypertension SNOMED Code(s): 02943637 ICD Code: I10 - ESSENTIAL (PRIMARY) HYPERTENSION Status: Chronic Priority : Medium Current Visit: Yes Problem Details: Continue to observe closely during this hospitalization. Qualifiers: Hypertension type: essential hypertension Qualified Code(s): I10 - Essential (primary) hypertension (5) Osteoarthritis SNOMED Code(s): 989391736 ICD Code: M19.90 - UNSPECIFIED OSTEOARTHRITIS, UNSPECIFIED SITE Status: Chronic Priority: Medium Current Visit: Yes Problem Details: Stable by history. Qualifiers: Osteoarthritis location: multiple joints Osteoarthritis type: primary (6) Peptic reflux disease SNOMED Code(s): 132821721 ICD Code: K21.9 - GASTRO-ESOPHAGEAL REFLUX DISEASE WITHOUT ESOPHAGITIS Status: Chronic Priority: Medium Current Visit: Yes Problem Details: No symptoms today and stable by history. Problem List Initiated/Reviewed/Updated: Yes Orders Last 24hrs: Active Orders 24 hr Category Date Time Status Patient Status [ADT] Routine ADT 07/18/20 16:05 Active Ambulate [RC] ASDIRECTED Care 07/18/20 16:05 Active Communication Order [RC] ROUTINE Care 07/18/20 16:14 Active Intake and Output [RC] QSHIFT Care 07/18/20 16:07 Active Oxygen Therapy [RC] PRN Care 07/18/20 16:05 Active RT Post Treatment Assessment [RC] Click to Edit Care 07/18/20 16:15 Active RT Pre-Treatment Assessment [RC] Click to Edit Care 07/18/20 16:15 Active VTE/DVT Education [RC] PER UNIT ROUTINE Care 07/18/20 16:05 Active Vital Signs [RC] PER UNIT ROUTINE Care 07/18/20 16:05 Active Consult to Case Management/Washcoat Wiper [CONS] Cons 07/18/20 16:05 Active Routine OT Evaluation and Treatment [CONS] Routine Cons 07/18/20 16:05 Active PT Evaluation and Treatment [CONS] Routine Cons 07/18/20 16:05 Active Mechanical Soft Diet [DIET] Diet 07/18/20 Dinner Active CBC WITH AUTO DIFF [HEME] Routine Lab 07/19/20 05:11 Ordered COMPREHENSIVE METABOLIC PN,CMP [CHEM] Routine Lab 07/19/20 05:11 Ordered CULTURE URINE [RM] Routine Lab 07/18/20 16:31 Ordered INR,PT,PROTHROMBIN TIME [COAG] Routine Lab 07/19/20 05:11 Ordered MAGNESIUM [CHEM] Routine Lab 07/19/20 05:11 Ordered PTT,PARTIAL THROMBOPLSTIN TIME [COAG] Routine Lab 07/19/20 05:11 Ordered TSH ULTRASENSITIVE [CHEM] Routine Lab 07/19/20 05:11 Ordered URIC ACID [CHEM] Routine Lab 07/19/20 05:11 Ordered URINALYSIS W/MICROSCOPIC [UA W/MICROSCOPIC] [URIN] Lab 07/18/20 16:30 Ordered Routine Acetaminophen [TylenoL] Med 07/18/20 16:15 Active 650 mg PO Q4H PRN Albuterol/Ipratropium [Combivent Respimat] Med 07/18/20 20:00 Active See Dose Instructions INH QID Aspirin Med 07/19/20 08:00 Ordered 81 mg PO DAILY Aspirin [Ecotrin] Med 07/18/20 16:11 Ordered 325 mg PO Q4H PRN Cholecalciferol (Vitamin D3) [Vitamin D3] Med 07/19/20 08:00 Ordered 25 mcg PO DAILY Dextromethorphan/guaiFENesin [Mucinex DM ER 600-30 MG] Med 07/18/20 18:00 Ordered 1 tab PO BID Docusate Sodium/Sennosides [Senna Plus] Med 07/18/20 16:11 Ordered 1 tab PO BID PRN Fluticasone Propionate [Flonase] Med 07/18/20 16:11 Ordered DOSE gm NASBOTH BID PRN Garlic [Garlic] Med 07/19/20 08:00 Ordered 1 cap PO DAILY L. Acidophilus/L.bulgaricus [Lactobacillus Tablet] Med 07/19/20 08:00 Ordered 1 cap PO DAILY Loperamide [Imodium] Med 07/18/20 16:11 Ordered 1 mg PO ASDIRECTED PRN Losartan [Cozaar] Med 07/19/20 08:00 Ordered 50 mg PO DAILY Magnesium Oxide [Magnesium Oxide] Med 07/18/20 16:15 Ordered 250 mg PO Q2D Metoprolol Succinate [Toprol XL] Med 07/19/20 08:00 Ordered 50 mg PO DAILY Multivit-Min/Iron/Folic/Lutein [Centrum Silver Women Med 07/19/20 08:00 Ordered Tablet] 1 tab PO DAILY Nystatin [Nystatin Crm] Med 07/18/20 18:00 Ordered DOSE gm TOP BID [place]-3 Fatty Acids/Fish Oil [Fish Oil 1,000 mg Capsule Med 07/19/20 08:00 Ordered ] 1 cap PO DAILY Omeprazole Med 07/18/20 16:11 Ordered 20 mg PO DAILY PRN Oxybutynin [Oxybutynin ER] Med 07/18/20 20:00 Ordered 5 mg PO BEDTIME Temazepam [Restoril] Med 07/18/20 16:05 Active 15 mg PO BEDTIME PRN Vitamin E [Vitamin E] Med 07/19/20 08:00 Ordered 1 cap PO DAILY oxyCODONE Med 07/18/20 16:11 Ordered 5 mg PO Q6H PRN Patient May Not [OM.PC] ASDIRECTED Oth 07/18/20 16:05 Ordered Resuscitation Status Routine Resus Stat 07/18/20 16:05 Ordered Medication Orders Acetaminophen (Tylenol) 650 mg PO Q4H PRN PRN Reason: Pain (Mild 1-3)/fever Albuterol/Ipratropium (Combivent Respimat) 0 gm INH QID [facility] Aspirin (Aspirin) 81 mg PO DAILY [facility] Aspirin (Ecotrin) 325 mg PO Q4H PRN PRN Reason: Headache Cholecalciferol (Vitamin D3) 25 mcg PO DAILY [facility] Fluticasone Propionate (Flonase) gm NASBOTH BID PRN PRN Reason: Congestion Guaifenesin/Dextromethorphan (Mucinex Dm Er 600-30 Mg) 1 tab PO BID [facility] Losartan Potassium (Cozaar) 50 mg PO DAILY [facility] Metoprolol Succinate (Toprol Xl) 50 mg PO DAILY [facility] Non-Formulary Medication (Garlic [Garlic]) 1 cap PO DAILY [facility] Non-Formulary Medication (L. Acidophilus/L.Bulgaricus [Lactobacillus Tablet]) 1 cap PO DAILY [facility] Non-Formulary Medication (Loperamide [Imodium]) 1 mg PO ASDIRECTED PRN PRN Reason: Diarrhea Non-Formulary Medication (Magnesium Oxide [Magnesium Oxide]) 250 mg PO Q2D [facility] Non-Formulary Medication (Multivit-Min/Iron/Folic/Lutein [Centrum Silver Women Tablet]) 1 tab PO DAILY [facility] Non-Formulary Medication ([place]-3 Fatty Acids/Fish Oil [Fish Oil 1,000 Mg Capsule]) 1 cap PO DAILY [facility] Non-Formulary Medication (Vitamin E [Vitamin E]) 1 cap PO DAILY [facility] Nystatin (Nystatin Crm) gm TOP BID [facility] Omeprazole (Omeprazole) 20 mg PO DAILY PRN PRN Reason: Heartburn Oxybutynin Chloride (Oxybutynin Er) 5 mg PO BEDTIME [facility] Oxycodone HCl (Oxycodone) 5 mg PO Q6H PRN PRN Reason: Pain Senna/Docusate Sodium (Senna Plus) 1 tab PO BID PRN PRN Reason: Constipation Temazepam (Restoril) 15 mg PO BEDTIME PRN PRN Reason: Sleep Assessment/Plan Comment:: As above. Extensive precautions were given to the patient and her daughter, who are in agreement with the treatment plan. Continue swing bed care with PT, OT, and strengthening. - Mortality Measure Prognosis:: Good
[2020-07-18] MEDS: Dextromethorphan/guaiFENesin 600-30 MG Tab.ER PO SCH (18:12)
[2020-07-18] MEDS: Nystatin Crm 30 GM Tube TOP SCH (18:13)
[2020-07-18] MEDS: Albuterol/Ipratropium 4 GM Inhalation Spray INH SCH (19:27)
[2020-07-18] MEDS: Oxybutynin 5 MG Tab.ER PO SCH (19:27)
[2020-07-19] MEDS: Temazepam 15 MG Cap PO PRN ×2 (00:36→21:35)
[2020-07-19] MEDS ORDERED: GARLIC PO SCH (08:00)
[2020-07-19] MEDS ORDERED: VITAMIN E 100 UNIT PO SCH (08:00)
[2020-07-19 08:01] LABS: PTT,PARTIAL THROMBOPLSTIN TIME 23.2 SEC (24.5-32.8)
[2020-07-19] MEDS: Albuterol/Ipratropium 4 GM Inhalation Spray INH SCH ×4 (08:07→19:29)
[2020-07-19] MEDS: Multivitamin Tab PO SCH (08:08)
[2020-07-19] MEDS: Dextromethorphan/guaiFENesin 600-30 MG Tab.ER PO SCH ×2 (08:08→17:57)
[2020-07-19] MEDS: Losartan 50 MG Tab PO SCH (08:09)
[2020-07-19] MEDS: Lactobacillus Rhamnosus GG (Probiotic) Cap PO SCH (08:10)
[2020-07-19] MEDS: Metoprolol Succinate 50 MG Tab.ER PO SCH (08:11)
[2020-07-19] MEDS: Aspirin 81 MG Tab.EC PO SCH (08:11)
[2020-07-19] MEDS: Cholecalciferol (Vitamin D3) 25 MCG Tab PO SCH (08:11)
[2020-07-19] MEDS: Fish Oil/Omega-3 Fatty Acids 1 Gm Cap PO SCH (08:11)
[2020-07-19] MEDS: Nystatin Crm 30 GM Tube TOP SCH ×2 (08:12→17:57)
[2020-07-19 08:40] LABS: CHLORIDE,CL 97 mmol/L (98-107); SODIUM,NA 136 mmol/L (136-145)
--- NOTE | 2020-07-19 12:17 | PCM.SN.2 ---
- Free Text/Narrative Note: Laboratory Tests 07/19/20 07/19/20 07/19/20 Range/Units 00:30 07:17 07:17 WBC 9.5 (4.0-10.2) K/uL RBC 3.56 L (3.77-5.09) M/uL Hgb 10.9 L D (11.7-15.5) g/dL Hct 33.1 L (34.0-46.0) % MCV 93.0 (84.0-98.0) fL MCH 30.6 (28.2-33.3) pg MCHC 32.9 (31.7-36.0) g/dL RDW 12.9 (11.2-14.1) % Plt Count 365 H (150-350) K/uL Neut % (Auto) 79.5 (45.0-80.0) % Lymph % (Auto) 6.1 L (10.0-50.0) % [place] % (Auto) 10.4 (2.0-14.0) % Eos % (Auto) 3.7 (0.0-5.0) % Baso % (Auto) 0.3 (0.0-2.0) % Neut # (Auto) 7.53 H (1.40-7.00) K/uL Lymph # (Auto) 0.58 (0.50-3.50) K/uL Tillman # (Auto) 0.99 (0.00-1.00) K/uL Eos # (Auto) 0.35 (0.00-0.50) K/uL Baso # (Auto) 0.03 (0.00-0.20) K/uL PT 10.0 (9.5-12.0) SEC INR 1.0 APTT 23.2 L (24.5-32.8) SEC Sodium (136-145) mmol/L Potassium (3.5-5.1) mmol/L Chloride (98-107) mmol/L Carbon Dioxide (21.0-32.0) mmol/L BUN (7-18) mg/dL Creatinine (0.51-1.17) mg/dL Est Cr Clr Drug Dosing mL/min Estimated GFR (MDRD) mL/min Glucose (74-106) mg/dL Uric Acid (2.6-7.2) mg/dL Calcium (8.5-10.1) mg/dL Magnesium (1.8-2.4) mg/dL Total Bilirubin (0.2-1.0) mg/dL AST (15-37) U/L ALT (12-78) U/L Alkaline Phosphatase (46-116) IU/L Total Protein (6.4-8.2) g/dL Albumin (3.4-5.0) g/dL TSH, Ultra Sensitive (0.358-3.740) mIU/mL Specimen Type Urincc Urine Color Light yellow Urine Appearance Slightly cloudy Urine pH 7.0 (5.0-9.0) Ur Specific [place] 1.010 (1.005-1.030) Urine Protein Negative (NEGATIVE) mg/dL Urine Glucose (UA) Negative (NEGATIVE) mg/dL Urine Ketones 80 H (NEGATIVE) mg/dL Urine Occult Blood Moderate H (NEGATIVE) Urine Nitrite Negative (NEGATIVE) Urine Bilirubin Negative (NEGATIVE) Urine Urobilinogen 0.2 (0.2-1.0) E.U./dL Ur Leukocyte Esterase Large H (NEGATIVE) Urine RBC 5-10 H /HPF Urine WBC 75-100 H /HPF Ur Epithelial Cells Few /LPF Urine Bacteria Few (NONE TO FEW) /HPF 07/19/20 Range/Units 07:17 WBC (4.0-10.2) K/uL RBC (3.77-5.09) M/uL Hgb (11.7-15.5) g/dL Hct (34.0-46.0) % MCV (84.0-98.0) fL MCH (28.2-33.3) pg MCHC (31.7-36.0) g/dL RDW (11.2-14.1) % Plt Count (150-350) K/uL Neut % (Auto) (45.0-80.0) % Lymph % (Auto) (10.0-50.0) % Tillman % (Auto) (2.0-14.0) % Eos % (Auto) (0.0-5.0) % Baso % (Auto) (0.0-2.0) % Neut # (Auto) (1.40-7.00) K/uL Lymph # (Auto) (0.50-3.50) K/uL Tillman # (Auto) (0.00-1.00) K/uL Eos # (Auto) (0.00-0.50) K/uL Baso # (Auto) (0.00-0.20) K/uL PT (9.5-12.0) SEC INR APTT (24.5-32.8) SEC Sodium 136 (136-145) mmol/L Potassium 3.4 L (3.5-5.1) mmol/L Chloride 97 L (98-107) mmol/L Carbon Dioxide 31.4 (21.0-32.0) mmol/L BUN 6 L (7-18) mg/dL Creatinine 0.46 L (0.51-1.17) mg/dL Est Cr Clr Drug Dosing 64.22 mL/min Estimated GFR (MDRD) > 60 mL/min Glucose 82 (74-106) mg/dL Uric Acid 6.4 (2.6-7.2) mg/dL Calcium 8.3 L (8.5-10.1) mg/dL Magnesium 1.5 L (1.8-2.4) mg/dL Total Bilirubin 0.4 (0.2-1.0) mg/dL AST 19 (15-37) U/L ALT 26 (12-78) U/L Alkaline Phosphatase 88 (46-116) IU/L Total Protein 5.5 L (6.4-8.2) g/dL Albumin 2.3 L (3.4-5.0) g/dL TSH, Ultra Sensitive 0.500 (0.358-3.740) mIU/mL Specimen Type Urine Color Urine Appearance Urine pH (5.0-9.0) Ur Specific [place] (1.005-1.030) Urine Protein (NEGATIVE) mg/dL Urine Glucose (UA) (NEGATIVE) mg/dL Urine Ketones (NEGATIVE) mg/dL Urine Occult Blood (NEGATIVE) Urine Nitrite (NEGATIVE) Urine Bilirubin (NEGATIVE) Urine Urobilinogen (0.2-1.0) E.U./dL Ur Leukocyte Esterase (NEGATIVE) Urine RBC /HPF Urine WBC /HPF Ur Epithelial Cells /LPF Urine Bacteria (NONE TO FEW) /HPF Urine specimen set up for culture and sensitivity. The patient does have some dysuria and is symptomatic. Initiate Bactrim DS therapy for now. In addition, note some mild probable postoperative anemia with iron studies, vitamin B12 level, and folic acid level to be conducted with repeat blood work on 07/25. Note some mild hypomagnesemia with increase of her previous magnesium oxide supplementation today. Patient will be started on potassium chloride for her mild hypokalemia. Note hypoalbuminemia with initiation of high-protein Glucerna supplements and snacks. Mild hypocalcemia, however observe for now.
[2020-07-19] MEDS: Sulfamethoxazole/Trimethoprim 800-160 MG Tab PO SCH ×2 (14:52→19:29)
[2020-07-19] MEDS: Potassium Chloride 20 MEQ Tab.ER PO SCH (14:52)
[2020-07-19] MEDS: Magnesium Oxide 400 MG Tab PO SCH (14:53)
[2020-07-19] MEDS: Omeprazole 20 MG Cap.CR PO SCH (14:53)
[2020-07-19] MEDS: Oxybutynin 5 MG Tab.ER PO SCH (19:29)
[2020-07-20] MEDS: Albuterol/Ipratropium 4 GM Inhalation Spray INH SCH ×4 (07:58→19:40)
[2020-07-20] MEDS: Fish Oil/Omega-3 Fatty Acids 1 Gm Cap PO SCH (07:59)
[2020-07-20] MEDS: Nystatin Crm 30 GM Tube TOP SCH ×2 (07:59→17:20)
[2020-07-20] MEDS: Magnesium Oxide 400 MG Tab PO SCH ×2 (08:00→17:19)
[2020-07-20] MEDS: Potassium Chloride 20 MEQ Tab.ER PO SCH (08:00)
[2020-07-20] MEDS: Losartan 50 MG Tab PO SCH (08:04)
[2020-07-20] MEDS: Multivitamin Tab PO SCH (08:04)
[2020-07-20] MEDS: Cholecalciferol (Vitamin D3) 25 MCG Tab PO SCH (08:05)
[2020-07-20] MEDS: Metoprolol Succinate 50 MG Tab.ER PO SCH (08:05)
[2020-07-20] MEDS: Aspirin 81 MG Tab.EC PO SCH (08:05)
[2020-07-20] MEDS: Sulfamethoxazole/Trimethoprim 800-160 MG Tab PO SCH ×2 (08:06→17:19)
[2020-07-20] MEDS: Omeprazole 20 MG Cap.CR PO SCH (08:06)
[2020-07-20] MEDS: Lactobacillus Rhamnosus GG (Probiotic) Cap PO SCH (08:06)
[2020-07-20] MEDS: Dextromethorphan/guaiFENesin 600-30 MG Tab.ER PO SCH ×2 (08:07→17:20)
[2020-07-20] MEDS: Oxybutynin 5 MG Tab.ER PO SCH (19:40)
[2020-07-20] MEDS ORDERED: Gabapentin 100 MG Cap PO SCH (20:00)
[2020-07-21] MEDS: Sulfamethoxazole/Trimethoprim 800-160 MG Tab PO SCH ×2 (08:00→18:11)
[2020-07-21] MEDS: Fish Oil/Omega-3 Fatty Acids 1 Gm Cap PO SCH (08:00)
[2020-07-21] MEDS: Potassium Chloride 20 MEQ Tab.ER PO SCH (08:01)
[2020-07-21] MEDS: Lactobacillus Rhamnosus GG (Probiotic) Cap PO SCH (08:02)
[2020-07-21] MEDS: Losartan 50 MG Tab PO SCH (08:03)
[2020-07-21] MEDS: Aspirin 81 MG Tab.EC PO SCH (08:03)
[2020-07-21] MEDS: Metoprolol Succinate 50 MG Tab.ER PO SCH (08:04)
[2020-07-21] MEDS: Omeprazole 20 MG Cap.CR PO SCH (08:04)
[2020-07-21] MEDS: Magnesium Oxide 400 MG Tab PO SCH ×2 (08:04→18:11)
[2020-07-21] MEDS: Cholecalciferol (Vitamin D3) 25 MCG Tab PO SCH (08:04)
[2020-07-21] MEDS: Dextromethorphan/guaiFENesin 600-30 MG Tab.ER PO SCH ×2 (08:05→18:12)
[2020-07-21] MEDS: Multivitamin Tab PO SCH (08:05)
[2020-07-21] MEDS: Nystatin Crm 30 GM Tube TOP SCH ×2 (08:06→18:13)
[2020-07-21] MEDS: Albuterol/Ipratropium 4 GM Inhalation Spray INH SCH ×4 (08:06→19:41)
[2020-07-21] MEDS: Acetaminophen 325 MG Tab PO PRN ×2 (16:17→21:57)
[2020-07-21] MEDS: Oxybutynin 5 MG Tab.ER PO SCH (19:41)
[2020-07-21] MEDS ORDERED: cefTRIAXone 1 GM Vial IM ONE (19:51)
[2020-07-21] MEDS: Phenazopyridine 95 MG Tab PO SCH (20:04)
[2020-07-21] MEDS: Temazepam 15 MG Cap PO PRN (21:57)
[2020-07-22] MEDS: traMADol 50 MG Tab PO PRN ×2 (02:20→23:20)
[2020-07-22 08:18] LABS: CHLORIDE,CL 101 mmol/L (98-107); SODIUM,NA 136 mmol/L (136-145)
[2020-07-22] MEDS: Lactobacillus Rhamnosus GG (Probiotic) Cap PO SCH (08:30)
[2020-07-22] MEDS: Albuterol/Ipratropium 4 GM Inhalation Spray INH SCH ×4 (08:30→19:30)
[2020-07-22] MEDS: Aspirin 81 MG Tab.EC PO SCH (08:31)
[2020-07-22] MEDS: Potassium Chloride 20 MEQ Tab.ER PO SCH (08:31)
[2020-07-22] MEDS: Cholecalciferol (Vitamin D3) 25 MCG Tab PO SCH (08:31)
[2020-07-22] MEDS: Nystatin Crm 30 GM Tube TOP SCH ×2 (08:31→17:00)
[2020-07-22] MEDS: Metoprolol Succinate 50 MG Tab.ER PO SCH (08:31)
[2020-07-22] MEDS: Dextromethorphan/guaiFENesin 600-30 MG Tab.ER PO SCH ×2 (08:32→17:00)
[2020-07-22] MEDS: Losartan 50 MG Tab PO SCH (08:32)
[2020-07-22] MEDS: Multivitamin Tab PO SCH (08:32)
[2020-07-22] MEDS: Magnesium Oxide 400 MG Tab PO SCH ×2 (08:32→17:00)
[2020-07-22] MEDS: Phenazopyridine 95 MG Tab PO SCH ×3 (08:32→17:36)
[2020-07-22] MEDS: Omeprazole 20 MG Cap.CR PO SCH (08:32)
[2020-07-22] MEDS: Sulfamethoxazole/Trimethoprim 800-160 MG Tab PO SCH ×2 (08:32→17:00)
[2020-07-22] MEDS: Fish Oil/Omega-3 Fatty Acids 1 Gm Cap PO SCH (08:32)
--- NOTE | 2020-07-22 13:31 | PCM.SN.2 ---
- Free Text/Narrative Note: Culture showed E.Coli, susceptible to Septra DS which patient is currently taking for the UTI. Iron studies indicate iron deficiency and anemia due to chronic disease.
[2020-07-22] MEDS: Oxybutynin 5 MG Tab.ER PO SCH (19:29)
[2020-07-22] MEDS: Acetaminophen 325 MG Tab PO PRN (21:50)
[2020-07-23] MEDS: Fish Oil/Omega-3 Fatty Acids 1 Gm Cap PO SCH (07:21)
[2020-07-23] MEDS: Losartan 50 MG Tab PO SCH (07:22)
[2020-07-23] MEDS: Aspirin 81 MG Tab.EC PO SCH (07:22)
[2020-07-23] MEDS: Omeprazole 20 MG Cap.CR PO SCH ×2 (07:22→20:09)
[2020-07-23] MEDS: Sulfamethoxazole/Trimethoprim 800-160 MG Tab PO SCH (07:23)
[2020-07-23] MEDS: Lactobacillus Rhamnosus GG (Probiotic) Cap PO SCH (07:23)
[2020-07-23] MEDS: Multivitamin Tab PO SCH (07:23)
[2020-07-23] MEDS: Cholecalciferol (Vitamin D3) 25 MCG Tab PO SCH (07:23)
[2020-07-23] MEDS: Metoprolol Succinate 50 MG Tab.ER PO SCH (07:23)
[2020-07-23] MEDS: Dextromethorphan/guaiFENesin 600-30 MG Tab.ER PO SCH (07:24)
[2020-07-23] MEDS: Potassium Chloride 20 MEQ Tab.ER PO SCH (07:24)
[2020-07-23] MEDS: Magnesium Oxide 400 MG Tab PO SCH ×2 (07:25→18:05)
[2020-07-23] MEDS: Nystatin Crm 30 GM Tube TOP SCH ×2 (07:30→18:05)
[2020-07-23] MEDS: Albuterol/Ipratropium 4 GM Inhalation Spray INH SCH ×4 (07:30→20:09)
[2020-07-23] MEDS: Phenazopyridine 95 MG Tab PO SCH ×3 (07:30→18:05)
[2020-07-23] MEDS: Ciprofloxacin 500 MG Tab PO SCH ×2 (11:33→18:04)
[2020-07-23] MEDS: Oxybutynin 5 MG Tab.ER PO SCH (20:09)
[2020-07-23] MEDS: Melatonin 3 MG Tab PO SCH (20:09)
[2020-07-23] MEDS: Temazepam 15 MG Cap PO PRN (22:18)
[2020-07-24] MEDS: Metoprolol Succinate 50 MG Tab.ER PO SCH (07:50)
[2020-07-24] MEDS: Magnesium Oxide 400 MG Tab PO SCH ×2 (07:55→17:35)
[2020-07-24] MEDS: Lactobacillus Rhamnosus GG (Probiotic) Cap PO SCH (07:56)
[2020-07-24] MEDS: Phenazopyridine 95 MG Tab PO SCH ×3 (07:56→17:35)
[2020-07-24] MEDS: Losartan 50 MG Tab PO SCH (07:56)
[2020-07-24] MEDS: Potassium Chloride 20 MEQ Tab.ER PO SCH (07:56)
[2020-07-24] MEDS: Albuterol/Ipratropium 4 GM Inhalation Spray INH SCH ×4 (07:58→20:14)
[2020-07-24] MEDS: Ciprofloxacin 500 MG Tab PO SCH ×2 (07:58→17:36)
[2020-07-24] MEDS: Nystatin Crm 30 GM Tube TOP SCH ×2 (08:01→17:36)
[2020-07-24] MEDS: Simethicone 125 MG Tab.Chew PO PRN ×2 (08:25→17:51)
[2020-07-24] MEDS: Cholecalciferol (Vitamin D3) 25 MCG Tab PO SCH (11:37)
[2020-07-24] MEDS: Multivitamin Tab PO SCH (11:37)
[2020-07-24] MEDS: Fish Oil/Omega-3 Fatty Acids 1 Gm Cap PO SCH (11:38)
[2020-07-24] MEDS: Aspirin 81 MG Tab.EC PO SCH (11:38)
[2020-07-24] MEDS: Oxybutynin 5 MG Tab.ER PO SCH (20:12)
[2020-07-24] MEDS: Melatonin 3 MG Tab PO SCH (20:12)
[2020-07-24] MEDS: Omeprazole 20 MG Cap.CR PO SCH (20:13)
[2020-07-24] MEDS: Temazepam 15 MG Cap PO PRN (22:05)
[2020-07-25] MEDS: Albuterol/Ipratropium 4 GM Inhalation Spray INH SCH ×4 (07:56→19:47)
[2020-07-25] MEDS: Nystatin Crm 30 GM Tube TOP SCH ×2 (07:57→17:56)
[2020-07-25] MEDS: Acetaminophen 325 MG Tab PO PRN (07:57)
[2020-07-25] MEDS: Metoprolol Succinate 50 MG Tab.ER PO SCH (07:59)
[2020-07-25] MEDS: Ciprofloxacin 500 MG Tab PO SCH ×2 (08:01→17:55)
[2020-07-25] MEDS: Potassium Chloride 20 MEQ Tab.ER PO SCH (08:01)
[2020-07-25] MEDS: Losartan 50 MG Tab PO SCH (08:02)
[2020-07-25] MEDS: Magnesium Oxide 400 MG Tab PO SCH ×2 (08:02→17:56)
[2020-07-25] MEDS: Lactobacillus Rhamnosus GG (Probiotic) Cap PO SCH (08:02)
[2020-07-25] MEDS: Phenazopyridine 95 MG Tab PO SCH ×3 (08:05→17:55)
[2020-07-25] MEDS: Aspirin 81 MG Tab.EC PO SCH (11:56)
[2020-07-25] MEDS: Cholecalciferol (Vitamin D3) 25 MCG Tab PO SCH (11:56)
[2020-07-25] MEDS: Multivitamin Tab PO SCH (11:56)
[2020-07-25] MEDS: Fish Oil/Omega-3 Fatty Acids 1 Gm Cap PO SCH (11:56)
[2020-07-25] MEDS: Melatonin 3 MG Tab PO SCH (19:47)
[2020-07-25] MEDS: Omeprazole 20 MG Cap.CR PO SCH (19:47)
[2020-07-25] MEDS: Oxybutynin 5 MG Tab.ER PO SCH (19:47)
[2020-07-25] MEDS ORDERED: Calcium Carbonate 750 MG Tab.Chew PO PRN (21:52)
[2020-07-25] MEDS: Temazepam 15 MG Cap PO PRN (22:03)
[2020-07-26] MEDS: Ciprofloxacin 500 MG Tab PO SCH ×2 (08:25→19:36)
[2020-07-26] MEDS: Potassium Chloride 20 MEQ Tab.ER PO SCH (08:25)
[2020-07-26] MEDS: Magnesium Oxide 400 MG Tab PO SCH ×2 (08:26→19:36)
[2020-07-26] MEDS: Lactobacillus Rhamnosus GG (Probiotic) Cap PO SCH (08:26)
[2020-07-26] MEDS: Nystatin Crm 30 GM Tube TOP SCH ×2 (08:26→19:38)
[2020-07-26] MEDS: Albuterol/Ipratropium 4 GM Inhalation Spray INH SCH ×4 (08:26→19:39)
[2020-07-26] MEDS: Metoprolol Succinate 50 MG Tab.ER PO SCH (08:31)
[2020-07-26] MEDS: Losartan 50 MG Tab PO SCH (08:31)
[2020-07-26] MEDS: Phenazopyridine 95 MG Tab PO SCH ×3 (08:38→19:38)
[2020-07-26] MEDS: Multivitamin Tab PO SCH (12:56)
[2020-07-26] MEDS: Aspirin 81 MG Tab.EC PO SCH (12:56)
[2020-07-26] MEDS: Cholecalciferol (Vitamin D3) 25 MCG Tab PO SCH (12:56)
[2020-07-26] MEDS: Fish Oil/Omega-3 Fatty Acids 1 Gm Cap PO SCH (12:56)
[2020-07-26] MEDS: Omeprazole 20 MG Cap.CR PO SCH (19:36)
[2020-07-26] MEDS: Ferrous Sulfate 325 MG Tab PO SCH (19:36)
[2020-07-26] MEDS: Oxybutynin 5 MG Tab.ER PO SCH (19:36)
[2020-07-26] MEDS: Melatonin 3 MG Tab PO SCH (19:37)
[2020-07-27] MEDS: Nystatin Crm 30 GM Tube TOP SCH ×2 (08:32→18:41)
[2020-07-27] MEDS: Ferrous Sulfate 325 MG Tab PO SCH ×2 (08:35→18:40)
[2020-07-27] MEDS: Phenazopyridine 95 MG Tab PO SCH ×3 (08:36→18:40)
[2020-07-27] MEDS: Losartan 50 MG Tab PO SCH (08:36)
[2020-07-27] MEDS: Potassium Chloride 20 MEQ Tab.ER PO SCH (08:37)
[2020-07-27] MEDS: Metoprolol Succinate 50 MG Tab.ER PO SCH (08:37)
[2020-07-27] MEDS: Ciprofloxacin 500 MG Tab PO SCH ×2 (08:39→18:39)
[2020-07-27] MEDS: Magnesium Oxide 400 MG Tab PO SCH ×2 (08:39→18:39)
[2020-07-27] MEDS: Lactobacillus Rhamnosus GG (Probiotic) Cap PO SCH (08:39)
[2020-07-27] MEDS: Albuterol/Ipratropium 4 GM Inhalation Spray INH SCH ×4 (08:41→19:35)
[2020-07-27] MEDS: Aspirin 81 MG Tab.EC PO SCH (12:17)
[2020-07-27] MEDS: Fish Oil/Omega-3 Fatty Acids 1 Gm Cap PO SCH (12:17)
[2020-07-27] MEDS: Cholecalciferol (Vitamin D3) 25 MCG Tab PO SCH (12:17)
[2020-07-27] MEDS: Multivitamin Tab PO SCH (12:17)
[2020-07-27] MEDS: guaiFENesin 600 MG Tab.ER PO SCH ×2 (18:40)
[2020-07-27] MEDS: Oxybutynin 5 MG Tab.ER PO SCH (19:35)
[2020-07-27] MEDS: Omeprazole 20 MG Cap.CR PO SCH (19:35)
[2020-07-27] MEDS: Melatonin 3 MG Tab PO SCH (19:35)
[2020-07-28] MEDS: Potassium Chloride 20 MEQ Tab.ER PO SCH (08:03)
[2020-07-28] MEDS: Lactobacillus Rhamnosus GG (Probiotic) Cap PO SCH (08:03)
[2020-07-28] MEDS: Ferrous Sulfate 325 MG Tab PO SCH ×2 (08:04→17:08)
[2020-07-28] MEDS: Albuterol/Ipratropium 4 GM Inhalation Spray INH SCH ×4 (08:04→19:22)
[2020-07-28] MEDS: Ciprofloxacin 500 MG Tab PO SCH ×2 (08:04→17:07)
[2020-07-28] MEDS: Nystatin Crm 30 GM Tube TOP SCH ×2 (08:04→17:08)
[2020-07-28] MEDS: Losartan 50 MG Tab PO SCH (08:05)
[2020-07-28] MEDS: Metoprolol Succinate 50 MG Tab.ER PO SCH (08:05)
[2020-07-28] MEDS: guaiFENesin 600 MG Tab.ER PO SCH ×2 (08:05→17:06)
[2020-07-28] MEDS: Phenazopyridine 95 MG Tab PO SCH ×4 (08:05→17:41)
[2020-07-28] MEDS: Magnesium Oxide 400 MG Tab PO SCH ×2 (08:05→17:07)
[2020-07-28] MEDS: Cholecalciferol (Vitamin D3) 25 MCG Tab PO SCH (12:13)
[2020-07-28] MEDS: Aspirin 81 MG Tab.EC PO SCH (12:13)
[2020-07-28] MEDS: Multivitamin Tab PO SCH (12:13)
[2020-07-28] MEDS: Fish Oil/Omega-3 Fatty Acids 1 Gm Cap PO SCH (12:13)
[2020-07-28] MEDS: Melatonin 3 MG Tab PO SCH (19:22)
[2020-07-28] MEDS: Oxybutynin 5 MG Tab.ER PO SCH (19:22)
[2020-07-28] MEDS: Omeprazole 20 MG Cap.CR PO SCH (19:22)
[2020-07-28] MEDS: Temazepam 15 MG Cap PO PRN (22:46)
[2020-07-29] MEDS: Acetaminophen 325 MG Tab PO PRN (05:20)
[2020-07-29] MEDS: Albuterol/Ipratropium 4 GM Inhalation Spray INH SCH ×4 (07:26→20:13)
[2020-07-29] MEDS: Ciprofloxacin 500 MG Tab PO SCH ×2 (07:26→17:40)
[2020-07-29] MEDS: Ferrous Sulfate 325 MG Tab PO SCH ×2 (07:26→17:40)
[2020-07-29] MEDS: guaiFENesin 600 MG Tab.ER PO SCH ×2 (07:27→17:40)
[2020-07-29] MEDS: Potassium Chloride 20 MEQ Tab.ER PO SCH (07:27)
[2020-07-29] MEDS: Lactobacillus Rhamnosus GG (Probiotic) Cap PO SCH (07:27)
[2020-07-29] MEDS: Magnesium Oxide 400 MG Tab PO SCH ×2 (07:27→17:40)
[2020-07-29] MEDS: Nystatin Crm 30 GM Tube TOP SCH ×2 (07:29→20:14)
[2020-07-29] MEDS: Phenazopyridine 95 MG Tab PO SCH ×2 (07:29→11:32)
[2020-07-29] MEDS: Losartan 50 MG Tab PO SCH (08:29)
[2020-07-29] MEDS: Metoprolol Succinate 50 MG Tab.ER PO SCH (08:29)
[2020-07-29] MEDS: Cholecalciferol (Vitamin D3) 25 MCG Tab PO SCH (11:32)
[2020-07-29] MEDS: Multivitamin Tab PO SCH (11:32)
[2020-07-29] MEDS: Aspirin 81 MG Tab.EC PO SCH (11:32)
[2020-07-29] MEDS: Fish Oil/Omega-3 Fatty Acids 1 Gm Cap PO SCH (11:32)
[2020-07-29] MEDS: Oxybutynin 5 MG Tab.ER PO SCH (20:13)
[2020-07-29] MEDS: Omeprazole 20 MG Cap.CR PO SCH (20:13)
[2020-07-29] MEDS: Melatonin 3 MG Tab PO SCH (20:13)
[2020-07-30] MEDS: Albuterol/Ipratropium 4 GM Inhalation Spray INH SCH ×4 (07:58→19:41)
[2020-07-30] MEDS: Nystatin Crm 30 GM Tube TOP SCH ×2 (07:58→19:40)
[2020-07-30] MEDS: Magnesium Oxide 400 MG Tab PO SCH ×2 (07:59→17:10)
[2020-07-30] MEDS: guaiFENesin 600 MG Tab.ER PO SCH ×2 (07:59→17:10)
[2020-07-30] MEDS: Metoprolol Succinate 50 MG Tab.ER PO SCH (08:00)
[2020-07-30] MEDS: Lactobacillus Rhamnosus GG (Probiotic) Cap PO SCH (08:00)
[2020-07-30] MEDS: Ferrous Sulfate 325 MG Tab PO SCH ×2 (08:00→17:10)
[2020-07-30] MEDS: Potassium Chloride 20 MEQ Tab.ER PO SCH (08:00)
[2020-07-30] MEDS: Losartan 50 MG Tab PO SCH (08:01)
[2020-07-30] MEDS: Aspirin 81 MG Tab.EC PO SCH (12:01)
[2020-07-30] MEDS: Fish Oil/Omega-3 Fatty Acids 1 Gm Cap PO SCH (12:01)
[2020-07-30] MEDS: Multivitamin Tab PO SCH (12:01)
[2020-07-30] MEDS: Cholecalciferol (Vitamin D3) 25 MCG Tab PO SCH (12:01)
[2020-07-30] MEDS: Melatonin 3 MG Tab PO SCH (19:40)
[2020-07-30] MEDS: Oxybutynin 5 MG Tab.ER PO SCH (19:40)
[2020-07-30] MEDS: Omeprazole 20 MG Cap.CR PO SCH (19:40)
[2020-07-31] MEDS: Lactobacillus Rhamnosus GG (Probiotic) Cap PO SCH (07:47)
[2020-07-31] MEDS: Potassium Chloride 20 MEQ Tab.ER PO SCH (07:48)
[2020-07-31] MEDS: Magnesium Oxide 400 MG Tab PO SCH ×2 (07:49→17:40)
[2020-07-31] MEDS: Metoprolol Succinate 50 MG Tab.ER PO SCH (07:49)
[2020-07-31] MEDS: guaiFENesin 600 MG Tab.ER PO SCH ×2 (07:50→17:40)
[2020-07-31] MEDS: Ferrous Sulfate 325 MG Tab PO SCH ×2 (07:50→17:40)
[2020-07-31] MEDS: Losartan 50 MG Tab PO SCH (07:50)
[2020-07-31] MEDS: Albuterol/Ipratropium 4 GM Inhalation Spray INH SCH ×4 (07:51→19:31)
[2020-07-31] MEDS: Fish Oil/Omega-3 Fatty Acids 1 Gm Cap PO SCH (12:08)
[2020-07-31] MEDS: Multivitamin Tab PO SCH (12:08)
[2020-07-31] MEDS: Aspirin 81 MG Tab.EC PO SCH (12:08)
[2020-07-31] MEDS: Cholecalciferol (Vitamin D3) 25 MCG Tab PO SCH (12:09)
[2020-07-31] MEDS: Nystatin Crm 30 GM Tube TOP SCH ×2 (12:33→19:31)
--- NOTE | 2020-07-31 14:20 | PCM.SN.2 ---
- Free Text/Narrative Note: Note recent UTI including positive urine culture and sensitivity for Pseudomonas aeruginosa and E. coli. Despite previous medical therapy patient is still symptomatic. Today's cath UA was sent for culture and sensitivity. Secondary to her persistent symptoms she was started on Bactrim DS and Pyridium until the culture results can be obtained. Note patient was previously started on iron sulfate secondary to postoperative iron deficiency anemia.
[2020-07-31] MEDS: Sulfamethoxazole/Trimethoprim 800-160 MG Tab PO SCH (17:40)
[2020-07-31] MEDS: Phenazopyridine 95 MG Tab PO SCH (17:41)
[2020-07-31] MEDS: Melatonin 3 MG Tab PO SCH (19:32)
[2020-07-31] MEDS: Oxybutynin 5 MG Tab.ER PO SCH (19:32)
[2020-07-31] MEDS: Omeprazole 20 MG Cap.CR PO SCH (19:32)
[2020-07-31] MEDS: Temazepam 15 MG Cap PO PRN (21:31)
[2020-07-31] MEDS: Acetaminophen 325 MG Tab PO PRN (21:31)
[2020-08-01] MEDS: Acetaminophen 325 MG Tab PO PRN ×2 (07:01→17:42)
[2020-08-01] MEDS: Sulfamethoxazole/Trimethoprim 800-160 MG Tab PO SCH ×2 (07:02→17:43)
[2020-08-01] MEDS: Nystatin Crm 30 GM Tube TOP SCH ×2 (07:03→19:55)
[2020-08-01] MEDS: Phenazopyridine 95 MG Tab PO SCH ×4 (07:03→17:42)
[2020-08-01] MEDS: Losartan 50 MG Tab PO SCH (07:04)
[2020-08-01] MEDS: Metoprolol Succinate 50 MG Tab.ER PO SCH (07:04)
[2020-08-01] MEDS: Magnesium Oxide 400 MG Tab PO SCH ×2 (07:04→17:42)
[2020-08-01] MEDS: Ferrous Sulfate 325 MG Tab PO SCH ×2 (07:05→17:43)
[2020-08-01] MEDS: guaiFENesin 600 MG Tab.ER PO SCH ×2 (07:05→17:43)
[2020-08-01] MEDS: Lactobacillus Rhamnosus GG (Probiotic) Cap PO SCH (07:05)
[2020-08-01] MEDS: Albuterol/Ipratropium 4 GM Inhalation Spray INH SCH ×3 (07:05→19:55)
[2020-08-01] MEDS: Potassium Chloride 20 MEQ Tab.ER PO SCH (07:06)
[2020-08-01] MEDS: Fish Oil/Omega-3 Fatty Acids 1 Gm Cap PO SCH (12:00)
[2020-08-01] MEDS: Aspirin 81 MG Tab.EC PO SCH (16:42)
[2020-08-01] MEDS: Cholecalciferol (Vitamin D3) 25 MCG Tab PO SCH (16:42)
[2020-08-01] MEDS: Multivitamin Tab PO SCH (16:42)
[2020-08-01] MEDS: Melatonin 3 MG Tab PO SCH (19:55)
[2020-08-01] MEDS: Oxybutynin 5 MG Tab.ER PO SCH (19:55)
[2020-08-01] MEDS: Temazepam 15 MG Cap PO PRN (19:55)
[2020-08-01] MEDS: Omeprazole 20 MG Cap.CR PO SCH (19:55)
[2020-08-02] MEDS: Magnesium Oxide 400 MG Tab PO SCH (07:49)
[2020-08-02] MEDS: Phenazopyridine 95 MG Tab PO SCH ×2 (07:49→13:05)
[2020-08-02] MEDS: Lactobacillus Rhamnosus GG (Probiotic) Cap PO SCH (07:50)
[2020-08-02] MEDS: Metoprolol Succinate 50 MG Tab.ER PO SCH (07:50)
[2020-08-02] MEDS: Losartan 50 MG Tab PO SCH (07:51)
[2020-08-02] MEDS: guaiFENesin 600 MG Tab.ER PO SCH (07:51)
[2020-08-02] MEDS: Sulfamethoxazole/Trimethoprim 800-160 MG Tab PO SCH (07:51)
[2020-08-02] MEDS: Ferrous Sulfate 325 MG Tab PO SCH (07:51)
[2020-08-02] MEDS: Nystatin Crm 30 GM Tube TOP SCH (07:52)
[2020-08-02] MEDS: Potassium Chloride 20 MEQ Tab.ER PO SCH (07:52)
[2020-08-02] MEDS: Albuterol/Ipratropium 4 GM Inhalation Spray INH SCH ×2 (07:52→11:19)
[2020-08-02 07:53] VITALS: BP 109/56; PULSE 77
[2020-08-02] MEDS: Fish Oil/Omega-3 Fatty Acids 1 Gm Cap PO SCH (11:18)
[2020-08-02] MEDS: Aspirin 81 MG Tab.EC PO SCH (11:18)
[2020-08-02] MEDS: Cholecalciferol (Vitamin D3) 25 MCG Tab PO SCH (11:18)
[2020-08-02] MEDS: Multivitamin Tab PO SCH (11:18)
--- NOTE | 2020-08-02 12:47 | PCM.DCSUM1 ---
Discharge Summary - Hospital Course Free Text/Narrative:: Pt admitted to swing bed s/p resection rectal CA Admitted for PT and OT Now for discharge home Diagnosis: Stroke: No - Discharge Data Discharge Date: 08/02/20 Discharge Disposition: Home, Self-Care 01 Condition: Good - Referral to Home Health Primary Care Physician: Zoie Rubi NP - Discharge Diagnosis/Problem(s) (1) Rectal adenocarcinoma SNOMED Code(s): 260118706 ICD Code: C20 - MALIGNANT NEOPLASM OF RECTUM Status: Acute Priority: High Current Visit: Yes Onset Date: ~07/12/20 Problem Details: Recently extensive surgery with excision of rectal adenocarcinoma as above. Patient apparently has a follow-up appointment scheduled at [facility] in 1 week. Patient mated to swing bed for further strengthening, PT, OT, and wound care. (2) Weakness generalized SNOMED Code(s): 23941778 ICD Code: R53.1 - WEAKNESS Status: Acute Priority: Medium Current Visit: Yes Onset Date: ~07/12/20 Problem Details: Mild postoperative weakness requiring swing bed care as above. (3) COPD (chronic obstructive pulmonary disease) SNOMED Code(s): 94861221 ICD Code: J44.9 - CHRONIC OBSTRUCTIVE PULMONARY DISEASE, UNSPECIFIED Status: Chronic Priority: Medium Current Visit: Yes Problem Details: No significant COPD exacerbation although recent nonspecific nonproductive cough. Her inhalers will be changed to Combivent on a regular basis with additional Mucinex DM therapy. Consider chest x-ray depending on her clinical course. Note negative COVID-19 screen prior to transfer to this facility. Qualifiers: COPD type: COPD with acute lower respiratory infection Qualified Code(s): J44.0 - Chronic obstructive pulmonary disease with (acute) lower respiratory infection (4) Hypertension SNOMED Code(s): 07583463 ICD Code: I10 - ESSENTIAL (PRIMARY) HYPERTENSION Status: Chronic Priority: Medium Current Visit: Yes Problem Details: Continue to observe closely during this hospitalization. Qualifiers: Hypertension type: essential hypertension Qualified Code(s): I10 - Essential (primary) hypertension - Patient Summary/Data Consults: Consultations 07/18/20 16:05 Consult to Case Management/Churn Driller [CONS] Routine OT Evaluation and Treatment [CONS] Routine PT Evaluation and Treatment [CONS] Routine 07/23/20 09:24 Consult to Dietary [Consult to Visually Impaired Teacher] [CONS] Routine - Patient Instructions Diet: Regular Diet as Tolerated Activity: As Tolerated Wound/Incision Care: Keep Operative Site/Wound Site Clean and Dry Notify Provider of: Fever, Increased Pain, Swelling and Redness, Drainage - Discharge Plan *PRESCRIPTION DRUG MONITORING PROGRAM REVIEWED*: Not Applicable *COPY OF PRESCRIPTION DRUG MONITORING REPORT IN PATIENT WESLY: Not Applicable Home Medications: Home Meds Fluticasone Propionate [Flonase] 2 sprays NASBOTH BID PRN 10/01/14 [History] Omeprazole [Prilosec] 20 mg PO DAILY PRN 10/01/14 [History] Aspirin 81 mg PO DAILY 06/18/18 [History] Losartan [Cozaar] 50 mg PO DAILY 08/15/18 [History] Metoprolol Succinate [Toprol Xl] 50 mg PO DAILY 08/15/18 [History] Oxybutynin [Oxybutynin ER] 5 mg PO BEDTIME 05/15/20 [History] Albuterol [Take Home: Albuterol 18 GM, 1 INH Pack] 1 - 2 puff INH Q4HR PRN 05/16/20 [History] Acetaminophen 500 mg PO Q4H PRN 07/18/20 [History] Aspirin [Aspirin EC] 1 tab PO Q4H PRN 07/18/20 [History] Cholecalciferol (Vitamin D3) [Vitamin D3] 25 mcg PO DAILY 07/18/20 [History] Garlic 1 cap PO DAILY 07/18/20 [History] L. Acidophilus/L.bulgaricus [Lactobacillus Tablet] 1 cap PO DAILY 07/18/20 [History] Loperamide [Imodium] 1 mg PO ASDIRECTED PRN 07/18/20 [History] Magnesium Oxide 250 mg PO Q2D 07/18/20 [History] Multivit-Min/Iron/Folic/Lutein [Centrum Silver Women Tablet] 1 tab PO DAILY 07/18/20 [History] Nystatin [Nystatin Crm] 1 applic TOP BID 07/18/20 [History] [place]-3 Fatty Acids/Fish Oil [Fish Oil 1,000 mg Capsule] 1 cap PO DAILY 07/18/20 [History] Sennosides/Docusate Sodium [Senna Plus 8.6-50 mg Tablet] 1 tab PO BID PRN 07/18/20 [History] Vitamin E 1 cap PO DAILY 07/18/20 [History] oxyCODONE 5 mg PO Q6H PRN 07/18/20 [History] Patient Handouts: Colostomy Surgery, Adult, Care After, Gabapentin capsules or tablets, Colostomy Home Guide, Adult - Discharge Summary/Plan Comment DC Time >30 min.: No Discharge Summary/Plan Comment: Follow up in clinic - General Info Date of Service: 08/02/20 Functional Status: Reports: Pain Controlled - Review of Systems General: Reports: No Symptoms HEENT: Reports: No Symptoms Pulmonary: Reports: No Symptoms Cardiovascular: Reports: No Symptoms Gastrointestinal: Reports: Abdominal Pain, Other (Ostomy) Musculoskeletal: Reports: No Symptoms Skin: Reports: No Symptoms Neurological: Reports: No Symptoms - Patient Data Vitals - Most Recent: Last Vital Signs Temp 97.5 F 08/02/20 08:00 Pulse 77 08/02/20 08:00 Resp 22 H 08/02/20 08:00 BP 109/56 L 08/02/20 08:00 Pulse Ox 96 08/02/20 08:00 Weight - Most Recent: 156 lb I&O - Last 24 hours: Intake & Output 08/02/20 08/02/20 08/02/20 02:59 10:59 18:59 Intake Total 540 Balance 540 JOANIE Results - Last 24 hrs: Microbiology 07/31/20 13:19 Urine Culture - Final Urine, Catheterized NO GROWTH AFTER 2 DAYS Med Orders - Current: Current Medications Acetaminophen (Tylenol) 650 mg PO Q4H PRN PRN Reason: Pain (Mild 1-3)/fever Last Admin: 08/01/20 17:42 Dose: 650 mg Documented by: Albuterol/Ipratropium (Combivent Respimat) 0 gm INH QID [facility] Last Admin: 08/02/20 11:19 Dose: 2 puff Documented by: Aspirin (Halfprin) 81 mg PO DAILY@1200 [facility] Last Admin: 08/02/20 11:18 Dose: 81 mg Documented by: Calcium Carbonate/Glycine (Tums Extra Strength) 750 mg PO Q2HR PRN PRN Reason: Indigestion Last Admin: 07/25/20 22:03 Dose: 750 mg Documented by: Cholecalciferol (Vitamin D3) 25 mcg PO DAILY@1200 [facility] Last Admin: 08/02/20 11:18 Dose: 25 mcg Documented by: Ferrous Sulfate (Ferrous Sulfate) 325 mg PO BIDMEALS [facility] Last Admin: 08/02/20 07:51 Dose: 325 mg Documented by: Fish Oil (Fish Oil) 1 gm PO DAILY@1200 [facility] Last Admin: 08/02/20 11:18 Dose: 1 gm Documented by: Fluticasone Propionate (Flonase) 0 gm NASBOTH BID PRN PRN Reason: Congestion Guaifenesin (Mucinex) 600 mg PO BID [facility] Last Admin: 08/02/20 07:51 Dose: 600 mg Documented by: Lactobacillus Rhamnosus (Culturelle) 1 cap PO DAILY [facility] Last Admin: 08/02/20 07:50 Dose: 1 cap Documented by: Loperamide HCl (Imodium Ad) 1 mg PO ASDIRECTED PRN PRN Reason: Diarrhea Losartan Potassium (Cozaar) 50 mg PO DAILY [facility] Last Admin: 08/02/20 07:51 Dose: 50 mg Documented by: Magnesium Oxide (Magnesium Oxide) 400 mg PO BID [facility] Last Admin: 08/02/20 07:49 Dose: 400 mg Documented by: Melatonin (Melatonin) 3 mg PO BEDTIME [facility] Last Admin: 08/01/20 19:55 Dose: 3 mg Documented by: Metoprolol Succinate (Toprol Xl) 50 mg PO DAILY [facility] Last Admin: 08/02/20 07:50 Dose: 50 mg Documented by: Multivitamins/Minerals/Vitamin C (Tab-A-Marie) 1 tab PO DAILY@1200 [facility] Last Admin: 08/02/20 11:18 Dose: 1 tab Documented by: Nystatin (Nystatin Crm) 0 gm TOP BID@0800,2000 [facility] Last Admin: 08/02/20 07:52 Dose: Not Given Documented by: Omeprazole (Omeprazole) 20 mg PO BEDTIME [facility] Last Admin: 08/01/20 19:55 Dose: 20 mg Documented by: Oxybutynin Chloride (Oxybutynin Er) 5 mg PO BEDTIME [facility] Last Admin: 08/01/20 19:55 Dose: 5 mg Documented by: Phenazopyridine HCl (Urinary Pain Relief) 95 mg PO TIDPC [facility] Stop: 08/02/20 18:30 Last Admin: 08/02/20 07:49 Dose: 95 mg Documented by: Potassium Chloride (Klor-Con M20) 20 meq PO DAILY [facility] Last Admin: 08/02/20 07:52 Dose: 20 meq Documented by: Senna/Docusate Sodium (Senna Plus) 1 tab PO BID PRN PRN Reason: Constipation Last Admin: 07/23/20 07:22 Dose: 1 tab Documented by: Simethicone (Simethicone) 125 mg PO QID PRN PRN Reason: Nausea Last Admin: 07/24/20 17:51 Dose: 125 mg Documented by: Temazepam (Restoril) 15 mg PO BEDTIME PRN PRN Reason: Sleep Last Admin: 08/01/20 19:55 Dose: 15 mg Documented by: Tramadol HCl (Ultram) 50 mg PO Q6H PRN PRN Reason: Pain Last Admin: 07/22/20 23:20 Dose: 50 mg Documented by: Trimethoprim/Sulfamethoxazole (Septra Ds) 1 tab PO BID [facility] Last Admin: 08/02/20 07:51 Dose: 1 tab Documented by: Discontinued Medications Aspirin (Halfprin) 81 mg PO DAILY [facility] Last Admin: 07/23/20 07:22 Dose: 81 mg Documented by: Aspirin (Ecotrin) 325 mg PO Q4H PRN PRN Reason: Headache Ceftriaxone Sodium (Rocephin) 1 gm IM ONETIME ONE Stop: 07/21/20 19:52 Last Admin: 07/21/20 20:04 Dose: 1 gm Documented by: Cholecalciferol (Vitamin D3) 25 mcg PO DAILY [facility] Last Admin: 07/23/20 07:23 Dose: 25 mcg Documented by: Ciprofloxacin (Ciprofloxacin Hcl) 250 mg PO BID [facility] Stop: 07/29/20 18:01 Last Admin: 07/29/20 17:40 Dose: 250 mg Documented by: Fish Oil (Fish Oil) 1 gm PO DAILY [facility] Last Admin: 07/23/20 07:21 Dose: 1 gm Documented by: Gabapentin (Neurontin) 100 mg PO BEDTIME [facility] Last Admin: 07/20/20 19:41 Dose: 100 mg Documented by: Guaifenesin/Dextromethorphan (Mucinex Dm Er 600-30 Mg) 1 tab PO BID [facility] Last Admin: 07/23/20 07:24 Dose: 1 tab Documented by: Lidocaine HCl (Xylocaine-Mpf 1%) Confirm Administered Dose 5 ml .ROUTE .STK-MED ONE Stop: 07/21/20 19:57 Last Admin: 07/21/20 20:04 Dose: 5 ml Documented by: Magnesium Oxide (Magnesium Oxide) 200 mg PO Q2D [facility] Last Admin: 07/18/20 18:12 Dose: 200 mg Documented by: Magnesium Oxide (Magnesium Oxide) 400 mg PO DAILY [facility] Last Admin: 07/20/20 08:00 Dose: 400 mg Documented by: Multivitamins/Minerals/Vitamin C (Tab-A-Marie) 1 tab PO DAILY [facility] Last Admin: 07/23/20 07:23 Dose: 1 tab Documented by: Garlic [Garlic] 1 (Cap) 1 cap PO DAILY [facility] Vitamin E [Vitamin E (] 100units) 1 cap PO DAILY [facility] Nystatin (Nystatin Crm) 0 gm TOP BID [facility] Last Admin: 07/29/20 07:29 Dose: 1 applic Documented by: Omeprazole (Omeprazole) 20 mg PO DAILY PRN PRN Reason: Heartburn Omeprazole (Omeprazole) 20 mg PO DAILY [facility] Last Admin: 07/23/20 07:22 Dose: 20 mg Documented by: Oxycodone HCl (Oxycodone) 5 mg PO Q6H PRN PRN Reason: Pain Phenazopyridine HCl (Urinary Pain Relief) 95 mg PO TIDPC [facility] Last Admin: 07/29/20 11:32 Dose: 95 mg Documented by: Trimethoprim/Sulfamethoxazole (Septra Ds) 1 tab PO BID [facility] Last Admin: 07/23/20 07:23 Dose: 1 tab Documented by: - Exam General: Reports: Alert, Oriented Neck: Reports: Supple Lungs: Reports: Decreased Breath Sounds Cardiovascular: Reports: Regular Rate GI/Abdominal Exam: Other (Ostomy intact) Extremities: Normal Inspection Skin: Reports: Warm, Dry Wound/Incisions: Reports: Healing Well Neurological: Reports: No New Focal Deficit Psy/Mental Status: Reports: Alert, Normal Affect
== END 2020-08-02 14:15 | disposition home or self-care (01) | DRG 948 ==
LOC: LL.MS 13:55
PROVIDERS: ADMIT Family Medicine; ATTEND Family Medicine
DX: R53.1 Weakness (principal); C20 Malignant neoplasm of rectum; N39.0 Urinary tract infection, site not specified; Z48.815 Encounter for surgical aftercare following surgery on the digestive system; J44.9 Chronic obstructive pulmonary disease, unspecified; I10 Essential (primary) hypertension; H54.7 Unspecified visual loss; H91.90 Unspecified hearing loss, unspecified ear; J30.9 Allergic rhinitis, unspecified; E78.00 Pure hypercholesterolemia, unspecified; D50.9 Iron deficiency anemia, unspecified; E83.42 Hypomagnesemia; E88.09 Other disorders of plasma-protein metabolism, not elsewhere classified; E83.51 Hypocalcemia; K59.09 Other constipation; K21.9 Gastro-esophageal reflux disease without esophagitis; K57.90 Diverticulosis of intestine, part unspecified, without perforation or abscess without bleeding; F41.9 Anxiety disorder, unspecified; F32.9 Major depressive disorder, single episode, unspecified; M81.0 Age-related osteoporosis without current pathological fracture; M19.90 Unspecified osteoarthritis, unspecified site; M54.9 Dorsalgia, unspecified; M54.2 Cervicalgia; G89.29 Other chronic pain; E66.9 Obesity, unspecified; D64.9 Anemia, unspecified; B96.20 Unspecified Escherichia coli [E. coli] as the cause of diseases classified elsewhere; B96.5 Pseudomonas (aeruginosa) (mallei) (pseudomallei) as the cause of diseases classified elsewhere; Z88.5 Allergy status to narcotic agent; Z79.82 Long term (current) use of aspirin; Z79.899 Other long term (current) drug therapy; Z87.01 Personal history of pneumonia (recurrent); Z90.49 Acquired absence of other specified parts of digestive tract; Z87.891 Personal history of nicotine dependence; Z68.30 Body mass index [BMI] 30.0-30.9, adult
CPT/HCPCS: 36415; 80053; 81001; 82607; 82728; 82746; 83540; 83550; 83735; 84443; 84550; 85025; 85610; 85730; 87086; 87088; 87186; 94640; 97110-GO; 97161-GP; 97165-GO; 97530-GO; 97530-GP; 97535-GO; 99305; 99307; 99315; A9270-GY; J0696; J2001

== ENCOUNTER 2020-08-17 11:47 | Emergency (ER) | payer MEDICARE, MEDICAID ==
[2020-08-17 11:57] VITALS: BP 163/87; PULSE 65
--- NOTE | 2020-08-17 13:00 | EDM.PDOC ---
ED HPI GENERAL MEDICAL PROBLEM - General Chief Complaint: General Stated Complaint: feels not right when she urinates Time Seen by Provider: 08/17/20 12:40 Source of Information: Reports: Patient History Limitations: Reports: No Limitations - History of Present Illness INITIAL COMMENTS - FREE TEXT/NARRATIVE: She presents to the emergency department complaining of a possible urinary tract infection. She feels like she has to urinate very frequently, usually with small amounts of urine. No dysuria. No blood in the urine. No fever or chills. No flank pain. She was treated for a UTI about 2 weeks ago. The most recent urine culture was negative. She is otherwise without complaints. - Related Data Allergies Allergy/AdvReac Type Severity Reaction Status Date / Time codeine Allergy Cannot Verified 08/17/20 11:49 Remember Home Meds: Home Meds Fluticasone Propionate [Flonase] 2 sprays NASBOTH BID PRN 10/01/14 [History] Omeprazole [Prilosec] 20 mg PO DAILY PRN 10/01/14 [History] Aspirin 81 mg PO DAILY 06/18/18 [History] Losartan [Cozaar] 50 mg PO DAILY 08/15/18 [History] Metoprolol Succinate [Toprol Xl] 50 mg PO DAILY 08/15/18 [History] Oxybutynin [Oxybutynin ER] 5 mg PO BEDTIME 05/15/20 [History] Albuterol [Take Home: Albuterol 18 GM, 1 INH Pack] 1 - 2 puff INH Q4HR PRN 05/16/20 [History] Acetaminophen 500 mg PO Q4H PRN 07/18/20 [History] Aspirin [Aspirin EC] 1 tab PO Q4H PRN 07/18/20 [History] Cholecalciferol (Vitamin D3) [Vitamin D3] 25 mcg PO DAILY 07/18/20 [History] Garlic 1 cap PO DAILY 07/18/20 [History] L. Acidophilus/L.bulgaricus [Lactobacillus Tablet] 1 cap PO DAILY 07/18/20 [History] Loperamide [Imodium] 1 mg PO ASDIRECTED PRN 07/18/20 [History] Magnesium Oxide 250 mg PO Q2D 07/18/20 [History] Multivit-Min/Iron/Folic/Lutein [Centrum Silver Women Tablet] 1 tab PO DAILY 07/18/20 [History] Nystatin [Nystatin Crm] 1 applic TOP BID 07/18/20 [History] [place]-3 Fatty Acids/Fish Oil [Fish Oil 1,000 mg Capsule] 1 cap PO DAILY 07/18/20 [History] Sennosides/Docusate Sodium [Senna Plus 8.6-50 mg Tablet] 1 tab PO BID PRN 07/18/20 [History] Vitamin E 1 cap PO DAILY 07/18/20 [History] oxyCODONE 5 mg PO Q6H PRN 07/18/20 [History] Past Medical History HEENT History: Reports: Allergic Rhinitis, Hard of Hearing, Impaired Vision, Other (See Below) Other HEENT History: She has been noncompliant with her glasses. No current hearing aide therapy with moderate bilateral presbycusis Cardiovascular History: Reports: Arrhythmia, High Cholesterol, Hypertension Other Cardiovascular History: Mild bilateral carotid occlusive disease. Grade 1 diastolic dysfunction by echocardiogram with mild left ventricular hypertrophy. History of PSVT. Respiratory History: Reports: Bronchitis, Recurrent, COPD, Intubation, Previous, Pneumonia, Recurrent Gastrointestinal History: Reports: Chronic Constipation, Colon Polyp, Diverticulosis, GERD, GI Bleed Other Gastrointestinal History: Diffuse diverticulosis. 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 Previous minimal lower GI bleed secondary to this rectal adenocarcinoma, which was initially diagnosed on 05/16/2020 by colonoscopy as below. Note previous history of recurrent diffuse colonic polyps since 2002 including removal of mild dysplastic rectal polyp at that time with history of tubular adenomas, hyperplastic colonic polyps and adenomatous colonic polyps. Anal warts. 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 Otherwise, Full term without complications during pregnancies or deliveries. Menopause at age 48. Possible previous dysfunctional uterine bleeding? Musculoskeletal History: Reports: Arthritis, Back Pain, Chronic, Neck Pain, Chronic, Osteoarthritis, Osteoporosis, RA, Other (See Below) Other Musculoskeletal History: Mild to moderate kyphosis. Neurological History: Reports: Concussion, Head Trauma Other Neuro History: Head concussion age 8. Cerebral microvascular disease by CT scan. Psychiatric History: Reports: Anxiety, Depression Endocrine/Metabolic History: Reports: Hypokalemia, Hypomagnesemia, Obesity/BMI 30+, Osteopenia, Osteoporosis, Other (See Below) Other Endocrine/Metabolic History: Hypocalcemia. Hypoalbuminemia. Hematologic History: Reports: Anemia Immunologic History: Reports: None Oncologic (Cancer) History: Reports: Colon, Other (See Below) Other Oncologic History: Rectal adenocarcinoma as above. Dermatologic History: Reports: None - Infectious Disease History Infectious Disease History: Reports: Other (See Below) Other Infectious Disease History: She is uncertain about her childhood diseases. - Past Surgical History Head Surgeries/Procedures: Reports: None HEENT Surgical History: Reports: Oral Surgery, Other (See Below) Other HEENT Surgeries/Procedures: Complete upper teeth extraction with multiple lower teeth extractions in the patient only wearing upper dentures. Cardiovascular Surgical History: Reports: None Respiratory Surgical History: Reports: None GI Surgical History: Reports: Appendectomy, Colon, Colonoscopy, Polypectomy, Other (See Below) Other GI Surgeries/Procedures: Abdominal perineal resection with partial colectomy of the descending colon and mesorectal excision of distal rectal adenocarcinoma with concomitant colostomy placement on 07/12/2020. Multiple previous colonoscopies including previous polypectomies as above. Last colonoscopy on 05/16/2020 with evidence of recurrent distal rectal polyp and additional probable 2.5 cm distal rectal carcinoma requiring surgery as above. Previous colonoscopies on 05/08/2010 and 12/11/2012. Hemorrhoidectomy with colonoscopy in 2002. Appendectomy at an unknown age. Female Surgical History: Reports: D&C, Dilitation & Evacuation, Other (See Below) Other Female Surgeries/Procedures: D&Cs for SAB as above with possible additi onal D&C secondary to dysfunctional uterine bleeding. Endocrine Surgical History: Reports: None Neurological Surgical History: Reports: None Musculoskeletal Surgical History: Reports: None, Joint Replacement Oncologic Surgical History: Reports: None Dermatological Surgical History: Reports: None - Past Imaging History Past Imaging History: Reports: Cardiac Echo (Last echocardiogram on 10/11/17 with ejection fraction of 5560 percent with otherwise findings as above. Previous echocardiogram on 01/26/11.), Carotid US (01/26/11), CAT Scan (CT of the abdomen and pelvis on 05/03/07.), DEXA Scan (01/26/11 and 10/08/06), HIDA Scan (Negative on 10/14/06), Mammogram (Last on 01/05/11), MRI (MRI of the abdomen and pelvis on 05/14/08.), Ultrasound (Gallbladder ultrasound on 04/15/11 and 10/01/06.) Social & Family History - Family History HEENT: Reports: Other (See Below) Other HEENT Family History: Food allergies in brother and sister. Respiratory: Reports: None GI: Reports: Colon Polyps, Other (See Below) Other GI Family History: Multiple family members on maternal and paternal side with history of colonic polyps, including in sister : Reports: None OBGYN: Reports: None Musculoskeletal: Reports: None Neurological: Reports: CVA, Other (See Below) Other Neurological Family History: Sister with CVA Psychiatric: Reports: None Endocrine/Metabolic: Reports: Hypothyroidism, Other (See Below) Other Endocrine/Metabolic Family History: Son with hypothyroidism. Hematologic: Reports: None Immunologic: Reports: None Dermatologic: Reports: None Oncologic: Reports: Breast, Lung, Skin, Other (See Below) Other Oncologic Family History: Mother with fatal breast cancer at age 73. Brother with unknown type of skin cancer in the facial region. Daughter with lung cancer at age 65 with history of tobacco use. - Caffeine Use Caffeine Use: Reports: Coffee (4 Cups per day), Tea (1 cup/day). 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 Denies: Abdominal Pain : Reports: Frequency, Urgency. Denies: Dysuria, Flank Pain, Hematuria ED EXAM, GENERAL - Physical Exam Exam: See Below Exam Limited By: No Limitations General Appearance: Alert, WD/WN Respiratory/Chest: No Respiratory Distress, Lungs Clear Cardiovascular: Regular Rate, Rhythm, No Murmur GI/Abdominal: Normal Bowel Sounds, Soft, Non-Tender Back Exam: No: CVA Tenderness (L), CVA Tenderness (R) Course - Vital Signs Last Recorded V/S: Last Vital Signs Temp 36.1 C 08/17/20 11:49 Pulse 65 08/17/20 11:49 Resp 18 08/17/20 11:49 BP 163/87 H 08/17/20 11:49 Pulse Ox 95 08/17/20 11:49 - Orders/Labs/Meds Labs: Laboratory Tests 08/17/20 Range/Units 12:26 Specimen Type Urinvoid Urine Color Yellow Urine Appearance Slightly cloudy Urine pH 6.5 (5.0-9.0) Ur Specific [place] 1.020 (1.005-1.030) Urine Protein Negative (NEGATIVE) mg/dL Urine Glucose (UA) Negative (NEGATIVE) mg/dL Urine Ketones Negative (NEGATIVE) mg/dL Urine Occult Blood Trace-intact H (NEGATIVE) Urine Nitrite Negative (NEGATIVE) Urine Bilirubin Negative (NEGATIVE) Urine Urobilinogen 0.2 (0.2-1.0) E.U./dL Ur Leukocyte Esterase Trace H (NEGATIVE) Urine RBC Not seen /HPF Urine WBC 0-5 /HPF Ur Epithelial Cells Rare /LPF Urine Bacteria Few (NONE TO FEW) /HPF Urine Yeast Rare H (NEGATIVE) /HPF Departure - Departure Time of Disposition: 13:00 Disposition: Home, Self-Care 01 Condition: Good Clinical Impression: UTI (urinary tract infection) - Discharge Information *PRESCRIPTION DRUG MONITORING PROGRAM REVIEWED*: Not Applicable *COPY OF PRESCRIPTION DRUG MONITORING REPORT IN PATIENT WESLY: Not Applicable Instructions: Urinary Tract Infection, Adult Referrals: Zoie Rubi NP [Primary Care Provider] - Additional Instructions: Cipro 500 mg. 1/2 tablet twice daily until gone. Push fluids. Follow-up with primary physician in 5 days for recheck of the urine. Sepsis Event Note (ED) - Evaluation Sepsis Screening Result: No Definite Risk - Focused Exam Vital Signs: Vital Signs Temp Pulse Resp BP Pulse Ox 08/17/20 11:49 36.1 C 65 18 163/87 H 95
== END 2020-08-17 13:03 | disposition home or self-care (01) ==
LOC: LL.ED 11:47
DX: N39.0 Urinary tract infection, site not specified (principal); E78.00 Pure hypercholesterolemia, unspecified; I10 Essential (primary) hypertension; J44.9 Chronic obstructive pulmonary disease, unspecified; M40.209 Unspecified kyphosis, site unspecified; M19.90 Unspecified osteoarthritis, unspecified site; E66.9 Obesity, unspecified; Z68.32 Body mass index [BMI] 32.0-32.9, adult; Z88.5 Allergy status to narcotic agent; Z79.82 Long term (current) use of aspirin; Z79.899 Other long term (current) drug therapy
CPT/HCPCS: 81001; 99283

== ENCOUNTER 2020-11-12 11:20 | Inpatient (IN) | payer MEDICARE, MEDICAID ==
[2020-11-12] MEDS ORDERED: Albuterol/Ipratropium 3.0-0.5 MG/3 ML Neb Soln NEB ONE (11:37)
[2020-11-12] MEDS ORDERED: Budesonide 0.5 MG/2 ML Neb Susp NEB ONE (11:37)
[2020-11-12] MEDS ORDERED: cefTRIAXone 1 GM in Sodium Chloride 0.9% 100 ML IV ONE (11:40)
[2020-11-12] MEDS ORDERED: Lactated Ringers 1,000 ML IV SCH ×2 (11:45→13:30)
[2020-11-12] MEDS ORDERED: methylPREDNISolone Sodium Succinate 125 MG/2 ML SDV IVPUSH ONE (11:53)
--- NOTE | 2020-11-12 12:06 | EDM.PDOC ---
ED HPI GENERAL MEDICAL PROBLEM - General Chief Complaint: General Stated Complaint: Fever, Not feeling well Time Seen by Provider: 11/12/20 11:25 Source of Information: Reports: Patient History Limitations: Reports: No Limitations - History of Present Illness INITIAL COMMENTS - FREE TEXT/NARRATIVE: Patient comes emergency department today from home with complaints of feeling no t well and just feeling tired and short of breath. This patient was seen in the clinic yesterday and was diagnosed with urinary tract infection that was found while she was having a CAT scan following up from colon cancer resection in May. She had increased urinary frequency yesterday had a urinary tract infection and was started on Macrobid. This patient is somewhat of a poor historian. She reports that she is chronically short of breath with a history of COPD. She does not take any nebulizers on a regular basis to control her COPD. She only uses albuterol as needed for shortness of breath. She reports over the past couple of days that she has had increasing shortness of breath and tightness in her chest. She has no energy she is weak she is tired she has fatigue. No fever no chills. No body aches. No increased amount of production of sputum or sputum purulence. She has tightness in her chest that gets worse with physical exertion. She has no pain in her chest. No palpitations or syncope. She has been eating and drinking appropriately. No abdominal pain nausea or vomiting. She still complains of increased urinary frequency. She has had normal amount of output from her colostomy. She has received her Covid vaccines. - Related Data Allergies Allergy/AdvReac Type Severity Reaction Status Date / Time codeine Allergy Cannot Verified 11/12/20 12:00 Remember Home Meds: Home Meds Fluticasone Propionate [Flonase] 2 sprays NASBOTH BID PRN 10/01/14 [History] Omeprazole [Prilosec] 20 mg PO DAILY PRN 10/01/14 [History] Losartan [Cozaar] 50 mg PO DAILY 08/15/18 [History] Metoprolol Succinate [Toprol Xl] 50 mg PO DAILY 08/15/18 [History] Oxybutynin [Oxybutynin ER] 5 mg PO BEDTIME 05/15/20 [History] Albuterol [Take Home: Albuterol 18 GM, 1 INH Pack] 1 - 2 puff INH Q4HR PRN 05/16/20 [History] Acetaminophen 500 mg PO Q4H PRN 07/18/20 [History] Aspirin [Aspirin EC] 1 tab PO Q4H PRN 07/18/20 [History] Cholecalciferol (Vitamin D3) [Vitamin D3] 25 mcg PO DAILY 07/18/20 [History] Loperamide [Imodium] 1 mg PO ASDIRECTED PRN 07/18/20 [History] Magnesium Oxide 250 mg PO Q2D 07/18/20 [History] Multivit-Min/Iron/Folic/Lutein [Centrum Silver Women Tablet] 1 tab PO DAILY 07/18/20 [History] [place]-3 Fatty Acids/Fish Oil [Fish Oil 1,000 mg Capsule] 1 cap PO DAILY 07/18/20 [History] Vitamin E 1 cap PO DAILY 07/18/20 [History] Aspirin [Halfprin] 81 mg PO DAILY 11/12/20 [History] Nitrofurantoin Monohyd/M-Cryst [Macrobid 100 mg Capsule] 1 tab PO [id number] 11/12/20 [History] Past Medical History HEENT History: Reports: Allergic Rhinitis, Hard of Hearing, Impaired Vision, Other (See Below) Other HEENT History: She has been noncompliant with her glasses. No current hearing aide therapy with moderate bilateral presbycusis Cardiovascular History: Reports: Arrhythmia, High Cholesterol, Hypertension Other Cardiovascular History: Mild bilateral carotid occlusive disease. Grade 1 diastolic dysfunction by echocardiogram with mild left ventricular hypertrophy. History of PSVT. Respiratory History: Reports: Bronchitis, Recurrent, COPD, Intubation, Previous, Pneumonia, Recurrent Gastrointestinal History: Reports: Chronic Constipation, Colon Polyp, Diverticulosis, GERD, GI Bleed Other Gastrointestinal History: Diffuse diverticulosis. 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 Previous minimal lower GI bleed secondary to this rectal adenocarcinoma, which was initially diagnosed on 05/16/2020 by colonoscopy as below. Note previous history of recurrent diffuse colonic polyps since 2002 including removal of mild dysplastic rectal polyp at that time with history of tubular adenomas, hyperplastic colonic polyps and adenomatous colonic polyps. Anal warts. Genitourinary History: Reports: Other (See Below) Other Genitourinary History: urinary urgency GIFT SHOP ASSISTANT History: Reports: Dysfunctional Uterine Bleeding, , Spontaneous Other GIFT SHOP ASSISTANT History: First trimester SAB requiring D&C as below. Otherwise, Ful l term without complications during pregnancies or deliveries. Menopause at age 48. Possible previous dysfunctional uterine bleeding? Musculoskeletal History: Reports: Arthritis, Back Pain, Chronic, Neck Pain, Chronic, Osteoarthritis, Osteoporosis, RA, Other (See Below) Other Musculoskeletal History: Mild to moderate kyphosis. Neurological History: Reports: Concussion, Head Trauma Other Neuro History: Head concussion age 8. Cerebral microvascular disease by CT scan. Psychiatric History: Reports: Anxiety, Depression Endocrine/Metabolic History: Reports: Hypokalemia, Hypomagnesemia, Obesity/BMI 30+, Osteopenia, Osteoporosis, Other (See Below) Other Endocrine/Metabolic History: Hypocalcemia. Hypoalbuminemia. Hematologic History: Reports: Anemia Immunologic History: Reports: None Oncologic (Cancer) History: Reports: Colon, Other (See Below) Other Oncologic History: Rectal adenocarcinoma as above. Dermatologic History: Reports: None - Infectious Disease History Infectious Disease History: Reports: Other (See Below) Other Infectious Disease History: She is uncertain about her childhood diseases. - Past Surgical History Head Surgeries/Procedures: Reports: None HEENT Surgical History: Reports: Oral Surgery, Other (See Below) Other HEENT Surgeries/Procedures: Complete upper teeth extraction with multiple lower teeth extractions in the patient only wearing upper dentures. Cardiovascular Surgical History: Reports: None Respiratory Surgical History: Reports: None GI Surgical History: Reports: Appendectomy, Colon, Colonoscopy, Polypectomy, Other (See Below) Other GI Surgeries/Procedures: Abdominal perineal resection with partial colectomy of the descending colon and mesorectal excision of distal rectal adenocarcinoma with concomitant colostomy placement on 07/12/2020. Multiple previous colonoscopies including previous polypectomies as above. Last colonoscopy on 05/16/2020 with evidence of recurrent distal rectal polyp and additional probable 2.5 cm distal rectal carcinoma requiring surgery as above. Previous colonoscopies on 05/08/2010 and 12/11/2012. Hemorrhoidectomy with colonoscopy in 2002. Appendectomy at an unknown age. Female Surgical History: Reports: D&C, Dilitation & Evacuation, Other (See Below) Other Female Surgeries/Procedures: D&Cs for SAB as above with possible additional D&C secondary to dysfunctional uterine bleeding. Endocrine Surgical History: Reports: None Neurological Surgical History: Reports: None Musculoskeletal Surgical History: Reports: None, Joint Replacement Oncologic Surgical History: Reports: None Dermatological Surgical History: Reports: None - Past Imaging History Past Imaging History: Reports: Cardiac Echo (Last echocardiogram on 10/11/17 with ejection fraction of 5560 percent with otherwise findings as above. Previous echocardiogram on 01/26/11.), Carotid US (01/26/11), CAT Scan (CT of the abdomen and pelvis on 05/03/07.), DEXA Scan (01/26/11 and 10/08/06), HIDA Scan (Negative on 10/14/06), Mammogram (Last on 01/05/11), MRI (MRI of the abdomen and pelvis on 05/14/08.), Ultrasound (Gallbladder ultrasound on 04/15/11 and 10/01/06.) Social & Family History - Family History HEENT: Reports: Other (See Below) Other HEENT Family History: Food allergies in brother and sister. Respiratory: Reports: None GI: Reports: Colon Polyps, Other (See Below) Other GI Family History: Multiple family members on maternal and paternal side with history of colonic polyps, including in sister : Reports: None OBGYN: Reports: None Musculoskeletal: Reports: None Neurological: Reports: CVA, Other (See Below) Other Neurological Family History: Sister with CVA Psychiatric: Reports: None Endocrine/Metabolic: Reports: Hypothyroidism, Other (See Below) Other Endocrine/Metabolic Family History: Son with hypothyroidism. Hematologic: Reports: None Immunologic: Reports: None Dermatologic: Reports: None Oncologic: Reports: Breast, Lung, Skin, Other (See Below) Other Oncologic Family History: Mother with fatal breast cancer at age 73. Brother with unknown type of skin cancer in the facial region. Daughter with lung cancer at age 65 with history of tobacco use. - Caffeine Use Caffeine Use: Reports: Coffee (4 Cups per day), Tea (1 cup/day). 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 ED EXAM, GENERAL - Physical Exam Exam: See Below Exam Limited By: No Limitations General Appearance: Alert, Mild Distress (She appears in mild respiratory distress. ONly able to speak in 5-7 word sentences. Sats 88% on RA. ) Ears: Normal External Exam Nose: Normal Inspection, Normal Mucosa Throat/Mouth: Normal Inspection, Normal Lips Head: Atraumatic, Normocephalic Neck: Normal Inspection, Supple, Non-Tender, Full Range of Motion Respiratory/Chest: Respiratory Distress (Mild), Decreased Breath Sounds (Throughout ), Wheezing (inspiratory and expiratory). No: Crackles, Rales, Rhonchi, Accessory Muscle Use, Retractions Cardiovascular: Normal Peripheral Pulses, Regular Rate, Rhythm GI/Abdominal: Normal Bowel Sounds, Soft, Non-Tender, Other (LLQ colostomy) (Female) Exam: Deferred Rectal (Female) Exam: Deferred Back Exam: Normal Inspection, Full Range of Motion Extremities: Normal Inspection, Normal Range of Motion, Normal Capillary Refill Neurological: Alert, Oriented, Normal Cognition, Normal Gait, No Motor/Sensory Deficits Psychiatric: Normal Affect, Normal Mood Skin Exam: Warm, Dry, Intact, Normal Color, No Rash Course - Vital Signs Last Recorded V/S: Last Vital Signs Temp 99.1 F 11/12/20 11:45 Pulse 94 11/12/20 11:45 Resp 24 H 11/12/20 11:45 BP 142/75 H 11/12/20 11:45 Pulse Ox 92 L 11/12/20 11:45 - Orders/Labs/Meds Orders: Active Orders 24 hr Category Date Time Status Admission Status [Patient Status] [ADT] Routine ADT 11/12/20 12:33 Active EKG Documentation Completion [RC] STAT Care 11/12/20 11:38 Active Peripheral IV Care [RC] . DIRECTED Care 11/12/20 11:39 Active RT Aerosol Therapy [RC] ASDIRECTED Care 11/12/20 11:38 Active Chest 2V [CR] Urgent Exams 11/12/20 11:38 Taken CULTURE BLOOD [BC] Stat Lab 11/12/20 11:55 Received CULTURE BLOOD [BC] Stat Lab 11/12/20 12:00 Received PROCALCITONIN [REF] Stat Lab 11/12/20 12:00 Received Lactated Ringers [Ringers, Lactated] 1,000 ml Med 11/12/20 11:45 Active IV ASDIRECTED Sodium Chloride 0.9% [Saline Flush] Med 11/12/20 11:38 Active 10 ml FLUSH ASDIRECTED PRN Blood Culture x2 Reflex Set [OM.PC] Stat Ot 11/12/20 11:38 Ordered Peripheral IV Insertion Adult [OM.PC] Stat Ot 11/12/20 11:38 Ordered Medication Orders Albuterol/Ipratropium (Albuterol/Ipratropium 3.0-0.5 Mg/3 Ml Neb Soln) 3 ml NEB Q6HRRT PRN PRN Reason: Wheezing Arformoterol Tartrate (Arformoterol 15 Mcg/2 Ml Neb Soln) 15 mcg NEB BIDRT [facility] Aspirin (Aspirin 81 Mg Tab.Ec) 81 mg PO DAILY [facility] Azithromycin (Azithromycin 250 Mg Tab) 500 mg PO DAILY [facility] Budesonide (Budesonide 0.5 Mg/2 Ml Neb Susp) 0.5 mg NEB BIDRT [facility] Cholecalciferol (Cholecalciferol (Vitamin D3) 25 Mcg Tab) 25 mcg PO DAILY [facility] Enoxaparin Sodium (Enoxaparin 40 Mg/0.4 Ml Syringe) 40 mg SUBCUT DAILY [facility] Fish Oil (Fish Oil/[place]-3 Fatty Acids 1 Gm Cap) 1 gm PO DAILY [facility] Fluticasone Propionate (Fluticasone Propionate Nasal [place] 16 Gm Bottle) 0 gm NASBOTH BID PRN PRN Reason: Congestion Lactated Ringer's (Ringers, Lactated) 1,000 mls @ 125 mls/hr IV ASDIRECTED [facility] Last Admin: 11/12/20 12:14 Dose: 125 mls/hr Documented by: COXTAM Lactated Ringer's (Ringers, Lactated) 1,000 mls @ 75 mls/hr IV ASDIRECTED [facility] Ceftriaxone Sodium 1 gm/ (Sodium Chloride) 100 mls @ 200 mls/hr IV Q24H [facility] Losartan Potassium (Losartan 50 Mg Tab) 50 mg PO DAILY [facility] Magnesium Oxide (Magnesium Oxide 400 Mg Tab) 200 mg PO Q2D [facility] Methylprednisolone Sodium Succinate (Methylprednisolone Sodium Succinate 125 Mg/2 Ml Sdv) 125 mg IVPUSH Q8H [facility] Metoprolol Succinate (Metoprolol Succinate 50 Mg Tab.Er) 50 mg PO DAILY [facility] Multivitamins/Minerals/Vitamin C (Multivitamin Tab) 1 tab PO DAILY [facility] Omeprazole (Omeprazole 20 Mg Cap.Cr) 20 mg PO DAILY PRN PRN Reason: Heartburn Oxybutynin Chloride (Oxybutynin 5 Mg Tab.Er) 5 mg PO BEDTIME [facility] Sodium Chloride (Sodium Chloride 0.9% 10 Ml Syringe) 10 ml FLUSH ASDIRECTED PRN PRN Reason: Keep Vein Open Last Admin: 11/12/20 12:07 Dose: 10 ml Documented by: BENTLEY Vitamin E (Vitamin E (Ed-Atucg-Ihsligwdqe Acetate) 400 Unit Cap) 400 units PO DAILY [facility] Labs: Laboratory Tests 11/12/20 11/12/20 11/12/20 Range/Units 12:00 12:00 12:00 WBC 9.6 (4.0-10.2) K/uL RBC 4.27 (3.77-5.09) M/uL Hgb 12.8 D (11.7-15.5) g/dL Hct 38.8 (34.0-46.0) % MCV 90.9 D (84.0-98.0) fL MCH 30.0 (28.2-33.3) pg MCHC 33.0 (31.7-36.0) g/dL RDW 13.4 (11.2-14.1) % Plt Count 270 D (150-350) K/uL Neut % (Auto) 92.3 H (45.0-80.0) % Lymph % (Auto) 2.2 L (10.0-50.0) % [place] % (Auto) 4.2 (2.0-14.0) % Eos % (Auto) 1.1 (0.0-5.0) % Baso % (Auto) 0.2 (0.0-2.0) % Neut # (Auto) 8.85 H (1.40-7.00) K/uL Lymph # (Auto) 0.21 L (0.50-3.50) K/uL [place] # (Auto) 0.40 (0.00-1.00) K/uL Eos # (Auto) 0.11 (0.00-0.50) K/uL Baso # (Auto) 0.02 (0.00-0.20) K/uL Sodium 134 L (136-145) mmol/L Potassium 4.3 (3.5-5.1) mmol/L Chloride 95 L (98-107) mmol/L Carbon Dioxide 29.1 (21.0-32.0) mmol/L BUN 12 (7-18) mg/dL Creatinine 0.52 (0.51-1.17) mg/dL Est Cr Clr Drug Dosing 55.78 mL/min Estimated GFR (MDRD) > 60 mL/min Glucose 109 H (70-99) mg/dL Lactic Acid 0.7 (0.4-2.0) mmol/L Calcium 9.3 (8.5-10.1) mg/dL Magnesium (1.8-2.4) mg/dL Total Bilirubin 0.7 (0.2-1.0) mg/dL AST 57 H (15-37) U/L ALT 77 (12-78) U/L Alkaline Phosphatase 209 H (46-116) IU/L Troponin I 0.000 (0.000-0.056) ng/mL C-Reactive Protein 3.1 H (<=0.9) mg/dL Total Protein 8.1 (6.4-8.2) g/dL Albumin 3.8 (3.4-5.0) g/dL 11/12/20 Range/Units 12:00 WBC (4.0-10.2) K/uL RBC (3.77-5.09) M/uL Hgb (11.7-15.5) g/dL Hct (34.0-46.0) % MCV (84.0-98.0) fL MCH (28.2-33.3) pg MCHC (31.7-36.0) g/dL RDW (11.2-14.1) % Plt Count (150-350) K/uL Neut % (Auto) (45.0-80.0) % Lymph % (Auto) (10.0-50.0) % [place] % (Auto) (2.0-14.0) % Eos % (Auto) (0.0-5.0) % Baso % (Auto) (0.0-2.0) % Neut # (Auto) (1.40-7.00) K/uL Lymph # (Auto) (0.50-3.50) K/uL [place] # (Auto) (0.00-1.00) K/uL Eos # (Auto) (0.00-0.50) K/uL Baso # (Auto) (0.00-0.20) K/uL Sodium (136-145) mmol/L Potassium (3.5-5.1) mmol/L Chloride (98-107) mmol/L Carbon Dioxide (21.0-32.0) mmol/L BUN (7-18) mg/dL Creatinine (0.51-1.17) mg/dL Est Cr Clr Drug Dosing mL/min Estimated GFR (MDRD) mL/min Glucose (70-99) mg/dL Lactic Acid (0.4-2.0) mmol/L Calcium (8.5-10.1) mg/dL Magnesium 1.8 (1.8-2.4) mg/dL Total Bilirubin (0.2-1.0) mg/dL AST (15-37) U/L ALT (12-78) U/L Alkaline Phosphatase (46-116) IU/L Troponin I (0.000-0.056) ng/mL C-Reactive Protein (<=0.9) mg/dL Total Protein (6.4-8.2) g/dL Albumin (3.4-5.0) g/dL Meds: Medications Generic Name Dose Route Start Last Admin Trade Name Freq PRN Reason Stop Dose Admin Albuterol/Ipratropium 3 ml 11/12/20 13:22 Albuterol/Ipratropium 3.0-0.5 Mg/3 Ml Neb Soln NEB Q6HRRT PRN Wheezing Arformoterol Tartrate 15 mcg 11/12/20 20:00 Arformoterol 15 Mcg/2 Ml Neb Soln NEB BIDRT [facility] Aspirin 81 mg 11/13/20 08:00 Aspirin 81 Mg Tab.Ec PO DAILY [facility] Azithromycin 500 mg 11/13/20 08:00 Azithromycin 250 Mg Tab PO DAILY [facility] Budesonide 0.5 mg 11/12/20 20:00 Budesonide 0.5 Mg/2 Ml Neb Susp NEB BIDRT [facility] Cholecalciferol 25 mcg 11/13/20 08:00 Cholecalciferol (Vitamin D3) 25 Mcg Tab PO DAILY [facility] Enoxaparin Sodium 40 mg 11/12/20 14:00 Enoxaparin 40 Mg/0.4 Ml Syringe SUBCUT DAILY [facility] Fish Oil 1 gm 11/13/20 08:00 Fish Oil/[place]-3 Fatty Acids 1 Gm Cap PO DAILY [facility] Fluticasone Propionate 0 gm 05/18/21 13:49 Fluticasone Propionate Nasal [place] 16 Gm Bottle NASBOTH BID PRN Congestion Lactated Ringer's 1,000 mls @ 125 mls/hr 11/12/20 11:45 11/12/20 12:14 Ringers, Lactated IV 125 mls/hr ASDIRECTED [facility] Administration Lactated Ringer's 1,000 mls @ 75 mls/hr 11/12/20 13:30 Ringers, Lactated IV ASDIRECTED [facility] Ceftriaxone Sodium 1 gm/ 100 mls @ 200 mls/hr 11/13/20 12:00 Sodium Chloride IV Q24H [facility] Losartan Potassium 50 mg 11/13/20 08:00 Losartan 50 Mg Tab PO DAILY [facility] Magnesium Oxide 200 mg 11/13/20 08:00 Magnesium Oxide 400 Mg Tab PO Q2D [facility] Methylprednisolone Sodium Succinate 125 mg 11/12/20 20:00 Methylprednisolone Sodium Succinate 125 Mg/2 Ml Sdv IVPUSH Q8H [facility] Metoprolol Succinate 50 mg 11/13/20 08:00 Metoprolol Succinate 50 Mg Tab.Er PO DAILY [facility] Multivitamins/Minerals/Vitamin C 1 tab 11/13/20 08:00 Multivitamin Tab PO DAILY [facility] Omeprazole 20 mg 11/12/20 13:49 Omeprazole 20 Mg Cap.Cr PO DAILY PRN Heartburn Oxybutynin Chloride 5 mg 11/12/20 20:00 Oxybutynin 5 Mg Tab.Er PO BEDTIME [facility] Sodium Chloride 10 ml 11/12/20 11:38 11/12/20 12:07 Sodium Chloride 0.9% 10 Ml Syringe FLUSH 10 ml ASDIRECTED PRN Administration Keep Vein Open Vitamin E 400 units 11/13/20 08:00 Vitamin E (Rn-Mmnkd-Rieskhwwdg Acetate) 400 Unit Cap PO DAILY [facility] Discontinued Medications Generic Name Dose Route Start Last Admin Trade Name Freq PRN Reason Stop Dose Admin Albuterol/Ipratropium 3 ml 11/12/20 11:37 11/12/20 12:01 Albuterol/Ipratropium 3.0-0.5 Mg/3 Ml Neb Soln NEB 11/12/20 11:38 3 ml ONETIME ONE Administration Azithromycin 500 mg 11/12/20 12:13 11/12/20 12:21 Azithromycin 250 Mg Tab PO 11/12/20 12:14 500 mg ONETIME ONE Administration Budesonide 0.5 mg 11/12/20 11:37 11/12/20 12:01 Budesonide 0.5 Mg/2 Ml Neb Susp NEB 11/12/20 11:38 0.5 mg ONETIME ONE Administration Ceftriaxone Sodium 1 gm/ 100 mls @ 200 mls/hr 11/12/20 11:40 11/12/20 12:07 Sodium Chloride IV 11/12/20 12:09 200 mls/hr ONETIME ONE Administration Methylprednisolone Sodium Succinate 125 mg 11/12/20 11:53 11/12/20 12:07 Methylprednisolone Sodium Succinate 125 Mg/2 Ml Sdv IVPUSH 11/12/20 11:54 125 mg ONETIME ONE Administration - Radiology Interpretation Free Text/Narrative:: CXR per radiology no acute process. - Re-Assessments/Exams Free Text/Narrative Re-Assessment/Exam: 11/12/20 12:11 Labs drawn to include Blood cutures. Nebulizers x 2 Duo Neb and Budesonide. SOlu-medrol 125mg IVP. She did not have much improvement of her subjective SOB although she actually had quite a bit of improved air movement following the nebulizers. IV LR 250ml bolus and 125mls/hr. Procalcitonin pending. Reviewing her urine from yesterday a rather impressive UTI with >100WBCs and 40 RBCs. Culture pending. Ceftriaxone 1 gram IVP for coverage of UTI only treated with Macrobid. Also will add Azithro for coverage of COPD exacerbation. Troponin negative. Labs are otherwise rather unremarkable. She does have a normal white blood cell count although primarily neutrophil base. She has a negative lactic acid and a mild elevation of her CRP at 3.1. She clearly becomes quite dyspneic with any physical exertion especially getting out of the wheelchair coming back from x-ray to get back into the cot. She has hypoxic. She is clearly having a COPD exacerbation which is not surprising as she is not on any controllers for her chronic COPD at home. Due to the hypoxia her COPD exacerbation her urinary tract infection and generalized weakness we will admit her into the hospital under my services under inpatient care for further care and management. She is comfortable with this plan and her questions were answered. Departure - Departure Time of Disposition: 12:39 Disposition: Admitted As Inpatient 65 Clinical Impression: Hypoxia, COPD with exacerbation, Generalized weakness UTI (urinary tract infection) Qualifiers: Urinary tract infection type: site unspecified Hematuria presence: with hematuria Qualified Code(s): N39.0 - Urinary tract infection, site not specified - Discharge Information *PRESCRIPTION DRUG MONITORING PROGRAM REVIEWED*: Not Applicable *COPY OF PRESCRIPTION DRUG MONITORING REPORT IN PATIENT WESLY: Not Applicable Sepsis Event Note (ED) - Focused Exam Vital Signs: Vital Signs Temp Pulse Resp BP Pulse Ox 11/12/20 11:45 99.1 F 94 24 H 142/75 H 92 L 11/12/20 11:25 99.9 F 91 24 H 163/73 H 88 L - Problem List & Annotations (1) COPD with exacerbation SNOMED Code(s): 158570834 Code(s): J44.1 - CHRONIC OBSTRUCTIVE PULMONARY DISEASE W (ACUTE) EXACERBATION Status: Acute Current Visit: Yes Annotation/Comment:: Patient with chronic COPD presents emergency department with COPD exacerbation. She is not on any long-term controllers at home and only uses albuterol as needed. She was hypoxic in the emergency department 88% ra. She was dyspneic. Solu-Medrol 125 3 times daily, Rocephin 1 g daily, azithromycin 500 mg p.o. daily. Blood cultures pending. Procalcitonin pending. Chest x-ray negative for acute infiltrate but does meet gold criteria for COPD exacerbation. Consideration of long-term management controllers at home as she has not on any chronically from her primary care provider. This will be discussed at discharge. (2) Hypoxia SNOMED Code(s): 360211630 Code(s): R09.02 - HYPOXEMIA Status: Acute Current Visit: Yes Annotation/Comment:: In the presence of COPD exacerbation. Oxygen saturations to be kept above 92%. Nebulizers as needed. No sign of pneumonia at this time. (3) UTI (urinary tract infection) SNOMED Code(s): 32653228 Code(s): N39.0 - URINARY TRACT INFECTION, SITE NOT SPECIFIED Status: Acute Current Visit: Yes Annotation/Comment:: Diagnosed in the clinic yesterday with a urinary tract infection. She was started on Macrobid. Urine culture pending. We will treat her with Rocephin as she has more systemic complaints of generalized malaise and fatigue. Follow culture. Qualifiers: Urinary tract infection type: site unspecified Hematuria presence: with hematuria Qualified Code(s): N39.0 - Urinary tract infection, site not specified; R31.9 - Hematuria, unspecified (4) Weakness generalized SNOMED Code(s): 33214567 Code(s): R53.1 - WEAKNESS Status: Acute Priority: Medium Current Visit: Yes Onset Date: ~07/12/20 Annotation/Comment:: No focal weakness. This is most likely due to the sequelae of her COPD exacerbation as well as her urinary tract infection. Continue to monitor at this time. PT OT for eval (5) PSVT (paroxysmal supraventricular tachycardia) SNOMED Code(s): 49586091 Code(s): I47.1 - SUPRAVENTRICULAR TACHYCARDIA Status: Acute Priority: High Current Visit: No Onset Date: 06/19/18 (6) Rectal adenocarcinoma SNOMED Code(s): 710244747 Code(s): C20 - MALIGNANT NEOPLASM OF RECTUM Status: Acute Priority: High Current Visit: No Onset Date: ~07/12/20 Annotation/Comment:: Had a FU CT scan chest abd pelvis yesterday routine after surgery without any signs of metastatic disease per report. Post surgical changes otherwise. (7) Hyperlipidemia SNOMED Code(s): 69205642 Code(s): E78.5 - HYPERLIPIDEMIA, UNSPECIFIED Status: Chronic Priority: Medium Current Visit: No Annotation/Comment:: Not currently under therapy. Continue to observe closely by her regular providers. Qualifiers: Hyperlipidemia type: unspecified Qualified Code(s): E78.5 - Hyperlipidemia, unspecified (8) Hypertension SNOMED Code(s): 23686452 Code(s): I10 - ESSENTIAL (PRIMARY) HYPERTENSION Status: Chronic Priority: Medium Current Visit: No Annotation/Comment:: Continue to observe closely during this hospitalization. Qualifiers: Hypertension type: essential hypertension Qualified Code(s): I10 - Essential (primary) hypertension - Problem List Review Problem List Initiated/Reviewed/Updated: Yes - My Orders Last 24 Hours: My Active Orders 11/12/20 11:38 EKG Documentation Completion [RC] STAT RT Aerosol Therapy [RC] ASDIRECTED Chest 2V [CR] Urgent Sodium Chloride 0.9% [Saline Flush] 10 ml FLUSH ASDIRECTED PRN Blood Culture x2 Reflex Set [OM.PC] Stat Peripheral IV Insertion Adult [OM.PC] Stat 11/12/20 11:39 Peripheral IV Care [RC] . DIRECTED 11/12/20 11:45 Lactated Ringers [Ringers, Lactated] 1,000 ml IV ASDIRECTED 11/12/20 11:55 CULTURE BLOOD [BC] Stat 11/12/20 12:00 CULTURE BLOOD [BC] Stat PROCALCITONIN [REF] Stat 11/12/20 12:33 Admission Status [Patient Status] [ADT] Routine - Assessment/Plan Last 24 Hours: My Active Orders 11/12/20 11:38 EKG Documentation Completion [RC] STAT RT Aerosol Therapy [RC] ASDIRECTED Chest 2V [CR] Urgent Sodium Chloride 0.9% [Saline Flush] 10 ml FLUSH ASDIRECTED PRN Blood Culture x2 Reflex Set [OM.PC] Stat Peripheral IV Insertion Adult [OM.PC] Stat 11/12/20 11:39 Peripheral IV Care [RC] . DIRECTED 11/12/20 11:45 Lactated Ringers [Ringers, Lactated] 1,000 ml IV ASDIRECTED 11/12/20 11:55 CULTURE BLOOD [BC] Stat 11/12/20 12:00 CULTURE BLOOD [BC] Stat PROCALCITONIN [REF] Stat 11/12/20 12:33 Admission Status [Patient Status] [ADT] Routine Assessment:: A/P We will admit this patient into inpatient care for hypoxia in the presence of COPD exacerbation generalized weakness and UTI failed outpatient therapy. I do not anticipate any more than 2 days in the hospital. Post hospitalization plan will be discharge home. Code 2. Sepsis, no signs of sepsis, UTI COPD exac Ceftriaxone and Azithromycin cultures pending as well as procalcitonin. VTE: High risk will place on lovenox 30mg subcut daily.
[2020-11-12] MEDS: Sodium Chloride 0.9% 10 ML Syringe FLUSH PRN ×2 (12:07→19:20)
[2020-11-12] MEDS ORDERED: Azithromycin 250 MG Tab PO ONE (12:13)
[2020-11-12 12:23] LABS: CHLORIDE,CL 95 mmol/L (98-107); SODIUM,NA 134 mmol/L (136-145)
--- NOTE | 2020-11-12 13:05 | PCM.EKG ---
#1 Interpretation EKG Date: 11/12/20 Time: 12:58 Rhythm: NSR Rate (Beats/Min): 89 [place]: Normal P-Wave: Present QRS: Normal ST-T: Normal QT: Normal Comparison: No Change
[2020-11-12] MEDS ORDERED: Albuterol/Ipratropium 3.0-0.5 MG/3 ML Neb Soln NEB PRN (13:22)
[2020-11-12] MEDS ORDERED: Fluticasone Propionate Nasal Spray 16 GM Bottle NASBOTH PRN (13:49)
[2020-11-12] MEDS ORDERED: Omeprazole 20 MG Cap.CR PO PRN (13:49)
[2020-11-12] MEDS: Enoxaparin 40 MG/0.4 ML Syringe SUBCUT SCH (17:06)
[2020-11-12] MEDS: Budesonide 0.5 MG/2 ML Neb Susp NEB SCH (19:19)
[2020-11-12] MEDS: Oxybutynin 5 MG Tab.ER PO SCH (19:20)
[2020-11-12] MEDS: Arformoterol 15 MCG/2 ML Neb Soln NEB SCH (19:20)
[2020-11-12] MEDS: methylPREDNISolone Sodium Succinate 125 MG/2 ML SDV IVPUSH SCH (19:20)
[2020-11-13] MEDS: Sodium Chloride 0.9% 10 ML Syringe FLUSH PRN ×2 (05:35→12:08)
[2020-11-13] MEDS: methylPREDNISolone Sodium Succinate 125 MG/2 ML SDV IVPUSH SCH ×3 (05:35→20:01)
[2020-11-13] MEDS: Azithromycin 250 MG Tab PO SCH (07:25)
[2020-11-13] MEDS: Fish Oil/Omega-3 Fatty Acids 1 Gm Cap PO SCH (07:25)
[2020-11-13] MEDS: Vitamin E (dl-alpha-tocopherol acetate) 400 Unit Cap PO SCH (07:25)
[2020-11-13] MEDS: Aspirin 81 MG Tab.EC PO SCH (07:25)
[2020-11-13] MEDS: Losartan 50 MG Tab PO SCH (07:26)
[2020-11-13] MEDS: Arformoterol 15 MCG/2 ML Neb Soln NEB SCH ×2 (07:26→20:02)
[2020-11-13] MEDS: Budesonide 0.5 MG/2 ML Neb Susp NEB SCH ×2 (07:27→19:50)
[2020-11-13] MEDS: Cholecalciferol (Vitamin D3) 25 MCG Tab PO SCH (07:27)
[2020-11-13] MEDS: Metoprolol Succinate 50 MG Tab.ER PO SCH (07:27)
[2020-11-13] MEDS: Multivitamin Tab PO SCH (07:27)
[2020-11-13] MEDS: Enoxaparin 40 MG/0.4 ML Syringe SUBCUT SCH (07:28)
[2020-11-13] MEDS ORDERED: Magnesium Oxide 400 MG Tab PO SCH (08:00)
[2020-11-13 08:29] LABS: CHLORIDE,CL 99 mmol/L (98-107); SODIUM,NA 137 mmol/L (136-145)
[2020-11-13] MEDS ORDERED: cefTRIAXone 1 GM in Sodium Chloride 0.9% 100 ML IV SCH (12:00)
--- NOTE | 2020-11-13 15:21 | PCM.PN ---
- General Info Date of Service: 11/13/20 Admission Dx/Problem (Free Text): COPD exacerbation UTI Generalized weakness. Subjective Update: Patient slept well through the night. She feels quite a bit better today. She has some energy and able to walk about the room. She does not feel short of breath when she is sitting at rest. She has no pain in her chest. She has been eating and drinking appropriately. She still feels somewhat generalized weakness but quite a bit better than yesterday. No fever no chills. No hematuria dysuria or urinary frequency. No abdominal pain. No black or tarry stools. She feels that she is breathing better than she does on the daily basis. Functional Status: Reports: Pain Controlled, Tolerating Diet, Ambulating, Urinating. Denies: New Symptoms Pain Score: 0 - Patient Data Vitals - Most Recent: Last Vital Signs Temp 97.6 F 11/13/20 08:00 Pulse 69 11/13/20 08:00 Resp 14 11/13/20 08:00 BP 138/59 L 11/13/20 08:00 Pulse Ox 94 L 11/13/20 08:00 Weight - Most Recent: 162 lb 14.4 oz I&O - Last 24 Hours: Intake & Output 11/13/20 11/13/20 11/13/20 06:59 14:59 22:59 Intake Total 100 2245 Output Total 800 Balance -700 2245 Lab Results Last 24 Hours: Laboratory Results - last 24 hr 11/12/20 11/13/20 11/13/20 Range/Units 12:00 08:09 08:09 WBC 7.1 (4.0-10.2) K/uL RBC 4.16 (3.77-5.09) M/uL Hgb 12.6 (11.7-15.5) g/dL Hct 38.4 (34.0-46.0) % MCV 92.3 (84.0-98.0) fL MCH 30.3 (28.2-33.3) pg MCHC 32.8 (31.7-36.0) g/dL RDW 13.7 (11.2-14.1) % Plt Count 296 (150-350) K/uL Neut % (Auto) 89.7 H (45.0-80.0) % Lymph % (Auto) 9.2 L (10.0-50.0) % [place] % (Auto) 1.0 L (2.0-14.0) % Eos % (Auto) 0.0 (0.0-5.0) % Baso % (Auto) 0.1 (0.0-2.0) % Neut # (Auto) 6.37 (1.40-7.00) K/uL Lymph # (Auto) 0.65 (0.50-3.50) K/uL [place] # (Auto) 0.07 (0.00-1.00) K/uL Eos # (Auto) 0.00 (0.00-0.50) K/uL Baso # (Auto) 0.01 (0.00-0.20) K/uL Sodium 137 (136-145) mmol/L Potassium 4.2 (3.5-5.1) mmol/L Chloride 99 (98-107) mmol/L Carbon Dioxide 30.1 (21.0-32.0) mmol/L BUN 11 (7-18) mg/dL Creatinine 0.46 L (0.51-1.17) mg/dL Est Cr Clr Drug Dosing 63.06 mL/min Estimated GFR (MDRD) > 60 mL/min Glucose 188 H (70-99) mg/dL Lactic Acid (0.4-2.0) mmol/L Calcium 9.3 (8.5-10.1) mg/dL Procalcitonin 0.08 ng/mL 11/13/20 Range/Units 08:09 WBC (4.0-10.2) K/uL RBC (3.77-5.09) M/uL Hgb (11.7-15.5) g/dL Hct (34.0-46.0) % MCV (84.0-98.0) fL MCH (28.2-33.3) pg MCHC (31.7-36.0) g/dL RDW (11.2-14.1) % Plt Count (150-350) K/uL Neut % (Auto) (45.0-80.0) % Lymph % (Auto) (10.0-50.0) % [place] % (Auto) (2.0-14.0) % Eos % (Auto) (0.0-5.0) % Baso % (Auto) (0.0-2.0) % Neut # (Auto) (1.40-7.00) K/uL Lymph # (Auto) (0.50-3.50) K/uL [place] # (Auto) (0.00-1.00) K/uL Eos # (Auto) (0.00-0.50) K/uL Baso # (Auto) (0.00-0.20) K/uL Sodium (136-145) mmol/L Potassium (3.5-5.1) mmol/L Chloride (98-107) mmol/L Carbon Dioxide (21.0-32.0) mmol/L BUN (7-18) mg/dL Creatinine (0.51-1.17) mg/dL Est Cr Clr Drug Dosing mL/min Estimated GFR (MDRD) mL/min Glucose (70-99) mg/dL Lactic Acid 2.8 H (0.4-2.0) mmol/L Calcium (8.5-10.1) mg/dL Procalcitonin ng/mL Kyler Results Last 24 Hours: Microbiology 11/12/20 12:00 Aerobic Blood Culture - Preliminary Blood - Venous - Lab Draw NO GROWTH AFTER 1 DAY Anaerobic Blood Culture - Preliminary NO GROWTH AFTER 1 DAY 11/12/20 11:55 Aerobic Blood Culture - Preliminary Blood - Venous NO GROWTH AFTER 1 DAY Anaerobic Blood Culture - Preliminary NO GROWTH AFTER 1 DAY Med Orders - Current: Current Medications Albuterol/Ipratropium (Albuterol/Ipratropium 3.0-0.5 Mg/3 Ml Neb Soln) 3 ml NEB Q6HRRT PRN PRN Reason: Wheezing Arformoterol Tartrate (Arformoterol 15 Mcg/2 Ml Neb Soln) [address] [facility] Last Admin: 11/13/20 07:26 Dose: 15 mcg Documented by: Aspirin (Aspirin 81 Mg Tab.Ec) [address] [facility] Last Admin: 11/13/20 07:25 Dose: 81 mg Documented by: Azithromycin (Azithromycin 250 Mg Tab) [address] [facility] Last Admin: 11/13/20 07:25 Dose: 500 mg Documented by: Budesonide (Budesonide 0.5 Mg/2 Ml Neb Susp) 0.[address] [facility] Last Admin: 11/13/20 07:27 Dose: 0.5 mg Documented by: Cholecalciferol (Cholecalciferol (Vitamin D3) 25 Mcg Tab) [address] [facility] Last Admin: 11/13/20 07:27 Dose: 25 mcg Documented by: Enoxaparin Sodium (Enoxaparin 40 Mg/0.4 Ml Syringe) [address] [facility] Last Admin: 11/13/20 07:28 Dose: 40 mg Documented by: Fish Oil (Fish Oil/[place]-3 Fatty Acids 1 Gm Cap) [address] [facility] Last Admin: 11/13/20 07:25 Dose: 1 gm Documented by: Fluticasone Propionate (Fluticasone Propionate Nasal [place] 16 Gm Bottle) 0 gm N ASBOTH BID PRN PRN Reason: Congestion Ceftriaxone Sodium 1 gm/ (Sodium Chloride) 100 mls @ 200 mls/hr IV Q24H [facility] Last Admin: 11/13/20 12:08 Dose: 200 mls/hr Documented by: Losartan Potassium (Losartan 50 Mg Tab) [address] [facility] Last Admin: 11/13/20 07:26 Dose: 50 mg Documented by: Magnesium Oxide (Magnesium Oxide 400 Mg Tab) [address] [facility] Last Admin: 11/13/20 07:30 Dose: 200 mg Documented by: Methylprednisolone Sodium Succinate (Methylprednisolone Sodium Succinate 125 Mg/ 2 Ml Sdv) [address] [facility] Last Admin: 11/13/20 12:08 Dose: 125 mg Documented by: Metoprolol Succinate (Metoprolol Succinate 50 Mg Tab.Er) [address] [facility] Last Admin: 11/13/20 07:27 Dose: 50 mg Documented by: Multivitamins/Minerals/Vitamin C (Multivitamin Tab) [address] [facility] Last Admin: 11/13/20 07:27 Dose: 1 tab Documented by: Omeprazole (Omeprazole 20 Mg Cap.Cr) 20 mg PO DAILY PRN PRN Reason: Heartburn Oxybutynin Chloride (Oxybutynin 5 Mg Tab.Er) [address] [facility] Last Admin: 11/12/20 19:20 Dose: 5 mg Documented by: Sodium Chloride (Sodium Chloride 0.9% 10 Ml Syringe) 10 ml FLUSH ASDIRECTED PRN PRN Reason: Keep Vein Open Last Admin: 11/13/20 12:08 Dose: 10 ml Documented by: Vitamin E (Vitamin E (Ot-Zhknv-Dndduawxph Acetate) 400 Unit Cap) [address] [facility] Last Admin: 11/13/20 07:25 Dose: 400 units Documented by: Discontinued Medications Albuterol/Ipratropium (Albuterol/Ipratropium 3.0-0.5 Mg/3 Ml Neb Soln) 3 ml NEB ONETIME ONE Stop: 11/12/20 11:38 Last Admin: 11/12/20 12:01 Dose: 3 ml Documented by: Azithromycin (Azithromycin 250 Mg Tab) 500 mg PO ONETIME ONE Stop: 11/12/20 12:14 Last Admin: 11/12/20 12:21 Dose: 500 mg Documented by: Budesonide (Budesonide 0.5 Mg/2 Ml Neb Susp) 0.5 mg NEB ONETIME ONE Stop: 11/12/20 11:38 Last Admin: 11/12/20 12:01 Dose: 0.5 mg Documented by: Ceftriaxone Sodium 1 gm/ (Sodium Chloride) 100 mls @ 200 mls/hr IV ONETIME ONE Stop: 11/12/20 12:09 Last Admin: 11/12/20 12:07 Dose: 200 mls/hr Documented by: Lactated Ringer's (Ringers, Lactated) 1,000 mls @ 125 mls/hr IV ASDIRECTED [facility] Last Admin: 11/12/20 12:14 Dose: 125 mls/hr Documented by: Lactated Ringer's (Ringers, Lactated) 1,000 mls @ 75 mls/hr IV ASDIRECTED [facility] Last Admin: 11/12/20 21:12 Dose: 75 mls/hr Documented by: Methylprednisolone Sodium Succinate (Methylprednisolone Sodium Succinate 125 Mg/2 Ml Sdv) 125 mg IVPUSH ONETIME ONE Stop: 11/12/20 11:54 Last Admin: 11/12/20 12:07 Dose: 125 mg Documented by: - Exam Quality Assessment: No: Supplemental Oxygen (Her sats at the bedside without oxygen at 92% and she appears in no increased work of breathing. ) General: Alert, Oriented HEENT: Pupils Equal, Pupils Reactive Neck: Supple Lungs: Clear to Auscultation, Normal Respiratory Effort. No: Wheezing Cardiovascular: Regular Rate, Regular Rhythm GI/Abdominal Exam: Normal Bowel Sounds, Soft, Non-Tender, Other (ostomy unremarkable. ) (Female) Exam: Deferred Back Exam: Normal Inspection Extremities: Normal Inspection, Normal Range of Motion, Non-Tender, No Pedal Edema, Normal Capillary Refill Peripheral Pulses: 2+: Radial (L), Radial (R), Posterior Tibial (L), Posterior Tibial (R), Dorsalis Pedis (L), Dorsalis Pedis (R) Skin: Warm, Dry, Intact Neurological: No New Focal Deficit Psy/Mental Status: Alert, Normal Affect, Normal Mood - Patient Data Lab Results Last 24 hrs: Laboratory Results - last 24 hr 11/12/20 11/13/20 11/13/20 Range/Units 12:00 08:09 08:09 WBC 7.1 (4.0-10.2) K/uL RBC 4.16 (3.77-5.09) M/uL Hgb 12.6 (11.7-15.5) g/dL Hct 38.4 (34.0-46.0) % MCV 92.3 (84.0-98.0) fL MCH 30.3 (28.2-33.3) pg MCHC 32.8 (31.7-36.0) g/dL RDW 13.7 (11.2-14.1) % Plt Count 296 (150-350) K/uL Neut % (Auto) 89.7 H (45.0-80.0) % Lymph % (Auto) 9.2 L (10.0-50.0) % [place] % (Auto) 1.0 L (2.0-14.0) % Eos % (Auto) 0.0 (0.0-5.0) % Baso % (Auto) 0.1 (0.0-2.0) % Neut # (Auto) 6.37 (1.40-7.00) K/uL Lymph # (Auto) 0.65 (0.50-3.50) K/uL [place] # (Auto) 0.07 (0.00-1.00) K/uL Eos # (Auto) 0.00 (0.00-0.50) K/uL Baso # (Auto) 0.01 (0.00-0.20) K/uL Sodium 137 (136-145) mmol/L Potassium 4.2 (3.5-5.1) mmol/L Chloride 99 (98-107) mmol/L Carbon Dioxide 30.1 (21.0-32.0) mmol/L BUN 11 (7-18) mg/dL Creatinine 0.46 L (0.51-1.17) mg/dL Est Cr Clr Drug Dosing 63.06 mL/min Estimated GFR (MDRD) > 60 mL/min Glucose 188 H (70-99) mg/dL Lactic Acid (0.4-2.0) mmol/L Calcium 9.3 (8.5-10.1) mg/dL Procalcitonin 0.08 ng/mL 11/13/20 Range/Units 08:09 WBC (4.0-10.2) K/uL RBC (3.77-5.09) M/uL Hgb (11.7-15.5) g/dL Hct (34.0-46.0) % MCV (84.0-98.0) fL MCH (28.2-33.3) pg MCHC (31.7-36.0) g/dL RDW (11.2-14.1) % Plt Count (150-350) K/uL Neut % (Auto) (45.0-80.0) % Lymph % (Auto) (10.0-50.0) % [place] % (Auto) (2.0-14.0) % Eos % (Auto) (0.0-5.0) % Baso % (Auto) (0.0-2.0) % Neut # (Auto) (1.40-7.00) K/uL Lymph # (Auto) (0.50-3.50) K/uL [place] # (Auto) (0.00-1.00) K/uL Eos # (Auto) (0.00-0.50) K/uL Baso # (Auto) (0.00-0.20) K/uL Sodium (136-145) mmol/L Potassium (3.5-5.1) mmol/L Chloride (98-107) mmol/L Carbon Dioxide (21.0-32.0) mmol/L BUN (7-18) mg/dL Creatinine (0.51-1.17) mg/dL Est Cr Clr Drug Dosing mL/min Estimated GFR (MDRD) mL/min Glucose (70-99) mg/dL Lactic Acid 2.8 H (0.4-2.0) mmol/L Calcium (8.5-10.1) mg/dL Procalcitonin ng/mL Result Diagrams: 11/13/20 08:09 11/13/20 08:09 Kyler Results Last 24 hrs: Microbiology 11/12/20 12:00 Aerobic Blood Culture - Preliminary Blood - Venous - Lab Draw NO GROWTH AFTER 1 DAY Anaerobic Blood Culture - Preliminary NO GROWTH AFTER 1 DAY 11/12/20 11:55 Aerobic Blood Culture - Preliminary Blood - Venous NO GROWTH AFTER 1 DAY Anaerobic Blood Culture - Preliminary NO GROWTH AFTER 1 DAY Sepsis Event Note - Evaluation Sepsis Screening Result: No Definite Risk - Focused Exam Vital Signs: Vital Signs Temp Pulse Pulse Resp BP BP Pulse Ox 11/13/20 08:00 97.6 F 69 14 138/59 L 94 L 11/13/20 07:27 69 138/59 L 11/13/20 07:26 138/59 L - Problem List & Annotations (1) COPD with exacerbation SNOMED Code(s): 000886854 Code(s): J44.1 - CHRONIC OBSTRUCTIVE PULMONARY DISEASE W (ACUTE) EXACERBATION Status: Acute Current Visit: Yes Annotation/Comment:: She has not required any as needed nebulizers. She is off of her oxygen as well maintaining her oxygen saturation above 92% on room air. She has quite a bit improvement of her lung sounds. We will continue the inhaled budesonide as well as the Brovana. I will switch her from IV Solu-Medrol to oral prednisone. We will discontinue her fluids at this time. We will continue her azithromycin and ceftriaxone. (2) Hypoxia SNOMED Code(s): 027598101 Code(s): R09.02 - HYPOXEMIA Status: Acute Current Visit: Yes Annotation/Comment:: She is not requiring any oxygen supplementation at this time. We will continue to monitor. Continue other breathing treatments (3) UTI (urinary tract infection) SNOMED Code(s): 45169374 Code(s): N39.0 - URINARY TRACT INFECTION, SITE NOT SPECIFIED Status: Acute Current Visit: Yes Qualifiers: Urinary tract infection type: site unspecified Hematuria presence: with hematuria Qualified Code(s): N39.0 - Urinary tract infection, site not specified; R31.9 - Hematuria, unspecified Annotation/Comment:: Urine culture returns with Enterococcus faecalis which shows sensitivity to penicillins which should be covered with ceftriaxone. We will continue her 1 g daily dosing. (4) Weakness generalized SNOMED Code(s): 62444571 Code(s): R53.1 - WEAKNESS Status: Acute Priority: Medium Current Visit: Yes Onset Date: ~07/12/20 Annotation/Comment:: PT OT did see the patient and feels that she is fine and does not need any further therapy. She does feel quite a bit better after the last 24 hours of therapy. We will continue to monitor. No focal neurological deficits. (5) PSVT (paroxysmal supraventricular tachycardia) SNOMED Code(s): 89211146 Code(s): I47.1 - SUPRAVENTRICULAR TACHYCARDIA Status: Acute Priority: High Current Visit: No Onset Date: 06/19/18 (6) Rectal adenocarcinoma SNOMED Code(s): 357183423 Code(s): C20 - MALIGNANT NEOPLASM OF RECTUM Status: Acute Priority: High Current Visit: No Onset Date: ~07/12/20 Annotation/Comment:: Had a FU CT scan chest abd pelvis yesterday routine after surgery without any signs of metastatic disease per report. Post surgical changes otherwise. (7) Hyperlipidemia SNOMED Code(s): 61534472 Code(s): E78.5 - HYPERLIPIDEMIA, UNSPECIFIED Status: Chronic Priority: Medium Current Visit: No Qualifiers: Hyperlipidemia type: unspecified Qualified Code(s): E78.5 - Hyperlipidemia, unspecified Annotation/Comment:: Not currently under therapy. Continue to observe closely by her regular providers. (8) Hypertension SNOMED Code(s): 72384654 Code(s): I10 - ESSENTIAL (PRIMARY) HYPERTENSION Status: Chronic Priority: Medium Current Visit: No Qualifiers: Hypertension type: essential hypertension Qualified Code(s): I10 - Essen tial (primary) hypertension Annotation/Comment:: Continue to observe closely during this hospitalization. - Problem List Review Problem List Initiated/Reviewed/Updated: Yes - My Orders Last 24 Hours: My Active Orders 11/12/20 Dinner Regular Diet [DIET] 11/12/20 20:00 Arformoterol [Brovana] 15 mcg NEB BIDRT Budesonide [Pulmicort] 0.5 mg NEB BIDRT Oxybutynin [Oxybutynin ER] 5 mg PO BEDTIME methylPREDNISolone Sod Succ [Solu-MEDROL] 125 mg IVPUSH Q8H 11/13/20 03:27 Communication Order [RC] 0800 11/13/20 08:00 Aspirin [Halfprin] 81 mg PO DAILY Azithromycin [Zithromax] 500 mg PO DAILY Cholecalciferol (Vitamin D3) [Vitamin D3] 25 mcg PO DAILY Fish Oil/[place]-3 Fatty Acids [Fish Oil] 1 gm PO DAILY Losartan [Cozaar] 50 mg PO DAILY Magnesium Oxide 200 mg PO Q2D Metoprolol Succinate [Toprol XL] 50 mg PO DAILY Multivitamins [Tab-A-Marie] 1 tab PO DAILY Vitamin E (dl, acetate) [Vitamin E] 400 units PO DAILY 11/13/20 12:00 cefTRIAXone [Rocephin] 1 gm Sodium Chloride 0.9% [Normal Saline] 100 ml IV Q24H 11/14/20 05:11 BASIC METABOLIC PANEL,BMP [CHEM] AM CBC WITH AUTO DIFF [HEME] AM LACTIC ACID [CHEM] AM - Assessment Assessment:: Assessment/plan. COPD. Exacerbation is getting under control. We will continue with her nebulizers I will switch her from Solu-Medrol to oral prednisone. She is not requiring any oxygen at this time. We will continue her azithromycin and ceftriaxone. UTI Enterococcus faecalis. Sensitive to penicillins we will continue the ceftriaxone. Generalized weakness continue to monitor improved over the last 24 hours. Hypoxia resolved. Continue above therapy. Although her lactic acid is minimally elevated today I see no other signs of acute infectious process. I am not sure what is causing her elevated lactic at this time but she has normal vital signs no fever no chills this could be related to nebulizers or other pathology we will repeat in the morning to ensure that this is improving. I will discontinue her IV hydration at this time as she is well-hydrated. Otherwise her labs are improving. VTE we will continue the Lovenox. Sepsis although she has an elevated lactic I am unconcerned at this time for any presence of sepsis or septic shock as she shows clinical improvement as well as laboratory improvement otherwise. We will repeat tomorrow and continue to monitor closely. Code level 2. Plan to discharge home tomorrow.
[2020-11-13] MEDS: Oxybutynin 5 MG Tab.ER PO SCH (20:02)
--- NOTE | 2020-11-13 23:13 | PCM.DCSUM1 ---
Discharge Summary - Hospital Course Diagnosis: Stroke: No - Discharge Data Discharge Date: 11/14/20 Discharge Disposition: Home, Self-Care 01 Condition: Good - Referral to Home Health Primary Care Physician: Zoie Rubi NP - Discharge Diagnosis/Problem(s) (1) COPD with exacerbation SNOMED Code(s): 863303114 ICD Code: J44.1 - CHRONIC OBSTRUCTIVE PULMONARY DISEASE W (ACUTE) EXACERBATION Status: Acute Current Visit: Yes Problem Details: She continues to do quite well. She has not needed any as needed nebulizers. She has not required any oxygen. She has no wheezing. She has no shortness of breath at rest she is also able to ambulate without getting short of breath. This is the best that she has felt in "years" according to the patient. We will discharge her home today. Will start on tiotropium budesonide chronically. We will also have prednisone 40 mg a day for the next 3 days. Also as needed nebulizers. She really needs to work with her primary care provider to get some control of her chronic COPD. I will not send her home on any antibiotics at this time for her lungs as her procalcitonin was initially negative. She does have an increasing white count although the neutrophil count is improved. She has no fever chills or other signs of infection and clinically she is improving. This is most likely due to the steroids. I am also concerned of her lactic acid it may be due to the nebulizers or other processes that are happening but she has no signs of infection at this time (2) Hypoxia SNOMED Code(s): 127831635 ICD Code: R09.02 - HYPOXEMIA Status: Acute Current Visit: Yes Problem Details: She is not requiring any oxygen supplementation at this time. Discharge home without oxygen (3) UTI (urinary tract infection) SNOMED Code(s): 13424679 ICD Code: N39.0 - URINARY TRACT INFECTION, SITE NOT SPECIFIED Status: Acute Current Visit: Yes Problem Details: Urine culture returns with Enterococcus faecalis which shows sensitivity to penicillins which should be covered with ceftriaxone. We will discharge home on cefdinir 1 tablet p.o. twice daily for the next 5 days for a total of 8 days of therapy. She did have a bladder scan pre and post void while she was in the hospital that did not show any urinary retention. Qualifiers: Urinary tract infection type: site unspecified Hematuria presence: with hematuria Qualified Code(s): N39.0 - Urinary tract infection, site not specified; R31.9 - Hematuria, unspecified (4) Weakness generalized SNOMED Code(s): 94710794 ICD Code: R53.1 - WEAKNESS Status: Acute Priority: Medium Current Visit: Yes Onset Date: ~07/12/20 Problem Details: PT OT did see the patient and feels that she is fine and does not need any further therapy. She does feel quite a bit better. This will take some time with her age and her illness. (5) PSVT (paroxysmal supraventricular tachycardia) SNOMED Code(s): 63472361 ICD Code: I47.1 - SUPRAVENTRICULAR TACHYCARDIA Status: Acute Priority: High Current Visit: No Onset Date: 06/19/18 (6) Rectal adenocarcinoma SNOMED Code(s): 887644509 ICD Code: C20 - MALIGNANT NEOPLASM OF RECTUM Status: Acute Priority: High Current Visit: No Onset Date: ~07/12/20 Problem Details: Had a FU CT scan chest abd pelvis yesterday routine after surgery without any signs of metastatic disease per report. Post surgical changes otherwise. (7) Hyperlipidemia SNOMED Code(s): 08481820 ICD Code: E78.5 - HYPERLIPIDEMIA, UNSPECIFIED Status: Chronic Priority: Medium Current Visit: No Problem Details: Not currently under therapy. Continue to observe closely by her regular providers. Qualifiers: Hyperlipidemia type: unspecified Qualified Code(s): E78.5 - Hyperlipidemia, unspecified (8) Hypertension SNOMED Code(s): 45572833 ICD Code: I10 - ESSENTIAL (PRIMARY) HYPERTENSION Status: Chronic Priority: Medium Current Visit: No Problem Details: Continue to observe closely during this hospitalization. Qualifiers: Hypertension type: essential hypertension Qualified Code(s): I10 - Essential (primary) hypertension - Patient Summary/Data Consults: Consultations 11/12/20 13:17 OT Evaluation and Treatment [CONS] Routine PT Evaluation and Treatment [CONS] Routine Hospital Course: Patient was admitted into the hospital under inpatient services on 11-11-20 with acute exacerbation of COPD generalized weakness as well as a failed outpatient urinary tract infection. She was noted to be initially hypoxic in the emergency department and requiring oxygenation. She was initially placed 2 days prior on Macrobid for a urinary tract infection but she continued to have increased symptoms generalized malaise and fatigue and increasing shortness of breath. She was admitted into the hospital in aggressive management was started for her COPD exacerbation. She really has not had any chronic controllers for her COPD that is well documented. She only uses albuterol as needed. She endorses that on the regular basis she is barely able to walk from the car into the house without getting short of breath. She has to sit for extended period of time to even catch her breath. She only has her albuterol at home she reports for her acute symptoms of COPD. She was placed with Solu-Medrol 125 mg IV push every 8 hours budesonide twice daily as well as Brovana twice daily and she was covered prophylactically with a COPD exacerbation with ceftriaxone and azithromycin. Her initial pro calcitonin upon presentation was negative. Blood cultures were pending were negative as well. Her urinary tract infection was covered with Almas james and was noted to be Enterococcus faecalis which was sensitive to the cephalosporins. She responded quite well with the above aggressive management for her COPD. After 24 hours she was not requiring any increased oxygen. She did feel quite a bit better and she was without complaints of shortness of breath at rest which is the first time that she has had this for quite some time. After her 2-day inpatient stay we will discharge her home with aggressive management for her COPD. We will start her on Tiotropium daily as well as budesonide twice daily. 3-day course of prednisone 40 mg daily. I will not cover her for any respiratory pathogens as her procalcitonin has been negative and there was no pneumonia and she is much improved her COPD exacerbation is resolved and we will cover her with cefdinir for urinary tract infection. We will have her follow-up with her primary care in a week. - Patient Instructions Diet: Heart Healthy Diet Other/Special Instructions: Follow up with PCP in 1 week for recheck and consider of continuing chronic therapy for your Chronic Obstructive Pulmonary Disease. Start Prednisone 40mg daily for the next 3 days for your COPD flare. Start on 11/15/20. Cefdinir 1 capsule twice daily for your UTI. Start on evening of 11/14/20. Finish the entire course. Start Tiotropium inhalation powerder daily. Take this daily no matter what this is a COPD controller medication that is required daily, not to be used as needed. Start 11/14/20. Start Budesonide 1 inhalation by nebulizer twice daily this is a COPD controller medication and needs to be taken daily. Not to be taken as needed. Start this evening of the 11/14/20. Albuterol nebulizer, 1 ampule every 4 hrs as needed for acute wheezing SOB or difficulty breathing. This is as needed not scheduled. Start when needed. With recurrent UTI consider urology follow up. - Discharge Plan *PRESCRIPTION DRUG MONITORING PROGRAM REVIEWED*: Not Applicable *COPY OF PRESCRIPTION DRUG MONITORING REPORT IN PATIENT WESLY: Not Applicable Prescriptions/Med Rec: Albuterol Sulfate 2.5 mg IH Q4HR PRN #30 ml PRN Reason: Wheezing Cefdinir 300 mg PO BID #10 capsule predniSONE 40 mg PO DAILY #6 tab Budesonide [Pulmicort] 0.5 mg .XX BID #30 neb Tiotropium [Spiriva HandiHaler] 18 mcg .XX DAILY #1 cap Home Medications: Home Meds Fluticasone Propionate [Flonase] 2 sprays NASBOTH BID PRN 10/01/14 [History] Omeprazole [Prilosec] 20 mg PO DAILY PRN 10/01/14 [History] Losartan [Cozaar] 50 mg PO DAILY 08/15/18 [History] Metoprolol Succinate [Toprol Xl] 50 mg PO DAILY 08/15/18 [History] Oxybutynin [Oxybutynin ER] 5 mg PO BEDTIME 05/15/20 [History] Albuterol [Take Home: Albuterol 18 GM, 1 INH Pack] 1 - 2 puff INH Q4HR PRN 05/16/20 [History] Acetaminophen 500 mg PO Q4H PRN 07/18/20 [History] Aspirin [Aspirin EC] 1 tab PO Q4H PRN 07/18/20 [History] Cholecalciferol (Vitamin D3) [Vitamin D3] 25 mcg PO DAILY 07/18/20 [History] Loperamide [Imodium] 1 mg PO ASDIRECTED PRN 07/18/20 [History] Magnesium Oxide 250 mg PO Q2D 07/18/20 [History] Multivit-Min/Iron/Folic/Lutein [Centrum Silver Women Tablet] 1 tab PO DAILY 07/18/20 [History] Matlock-3 Fatty Acids/Fish Oil [Fish Oil 1,000 mg Capsule] 1 cap PO DAILY 07/18/20 [History] Vitamin E 1 cap PO DAILY 07/18/20 [History] Aspirin [Halfprin] 81 mg PO DAILY 11/12/20 [History] Albuterol Sulfate 2.5 mg IH Q4HR PRN #30 ml 11/13/20 [Rx] Budesonide [Pulmicort] 0.5 mg .XX BID #30 neb 11/13/20 [Rx] Cefdinir 300 mg PO BID #10 capsule 11/13/20 [Rx] Tiotropium [Spiriva HandiHaler] 18 mcg .XX DAILY #1 cap 11/13/20 [Rx] predniSONE 40 mg PO DAILY #6 tab 11/13/20 [Rx] Forms: ED Department Discharge Referrals: Zoie Rubi NP [Primary Care Provider] - - Discharge Summary/Plan Comment DC Time >30 min.: Yes - General Info Date of Service: 11/14/20 Admission Dx/Problem (Free Text: COPD exacerbation UTI Generalized weakness. Subjective Update: Patient continues to improve. She has no shortness of breath. She has no chest pain no fever no chills. Her cough is improving as well. It is nonproductive. She has no palpitations focal weaknesses or syncope. She is able to ambulate around the room without difficulty she feels better than she has in years she reports. This is not surprising as she has not been on any controllers for her COPD. She has no abdominal pain nausea or vomiting. She has no difficulty with voiding. She has no urinary frequency dysuria or hematuria. No black or tarry stools. She has had a good appetite. She feels well and would like to go home although she is still somewhat weak she is aware that it may take some time for her to get back to her baseline. - Patient Data Vitals - Most Recent: Last Vital Signs Temp 97.5 F 11/13/20 20:05 Pulse 67 11/13/20 20:05 Resp 18 11/13/20 20:05 BP 130/52 L 11/13/20 20:05 Pulse Ox 92 L 11/13/20 20:05 Weight - Most Recent: 162 lb 14.4 oz I&O - Last 24 hours: Intake & Output 11/13/20 11/13/20 11/14/20 14:59 22:59 06:59 Intake Total 2245 220 Balance 2245 220 Lab Results - Last 24 hrs: Laboratory Results - last 24 hr 11/12/20 11/13/20 11/13/20 Range/Units 12:00 08:09 08:09 WBC 7.1 (4.0-10.2) K/uL RBC 4.16 (3.77-5.09) M/uL Hgb 12.6 (11.7-15.5) g/dL Hct 38.4 (34.0-46.0) % MCV 92.3 (84.0-98.0) fL MCH 30.3 (28.2-33.3) pg MCHC 32.8 (31.7-36.0) g/dL RDW 13.7 (11.2-14.1) % Plt Count 296 (150-350) K/uL Neut % (Auto) 89.7 H (45.0-80.0) % Lymph % (Auto) 9.2 L (10.0-50.0) % [place] % (Auto) 1.0 L (2.0-14.0) % Eos % (Auto) 0.0 (0.0-5.0) % Baso % (Auto) 0.1 (0.0-2.0) % Neut # (Auto) 6.37 (1.40-7.00) K/uL Lymph # (Auto) 0.65 (0.50-3.50) K/uL [place] # (Auto) 0.07 (0.00-1.00) K/uL Eos # (Auto) 0.00 (0.00-0.50) K/uL Baso # (Auto) 0.01 (0.00-0.20) K/uL Sodium 137 (136-145) mmol/L Potassium 4.2 (3.5-5.1) mmol/L Chloride 99 (98-107) mmol/L Carbon Dioxide 30.1 (21.0-32.0) mmol/L BUN 11 (7-18) mg/dL Creatinine 0.46 L (0.51-1.17) mg/dL Est Cr Clr Drug Dosing 63.06 mL/min Estimated GFR (MDRD) > 60 mL/min Glucose 188 H (70-99) mg/dL Lactic Acid (0.4-2.0) mmol/L Calcium 9.3 (8.5-10.1) mg/dL Procalcitonin 0.08 ng/mL 11/13/20 Range/Units 08:09 WBC (4.0-10.2) K/uL RBC (3.77-5.09) M/uL Hgb (11.7-15.5) g/dL Hct (34.0-46.0) % MCV (84.0-98.0) fL MCH (28.2-33.3) pg MCHC (31.7-36.0) g/dL RDW (11.2-14.1) % Plt Count (150-350) K/uL Neut % (Auto) (45.0-80.0) % Lymph % (Auto) (10.0-50.0) % [place] % (Auto) (2.0-14.0) % Eos % (Auto) (0.0-5.0) % Baso % (Auto) (0.0-2.0) % Neut # (Auto) (1.40-7.00) K/uL Lymph # (Auto) (0.50-3.50) K/uL [place] # (Auto) (0.00-1.00) K/uL Eos # (Auto) (0.00-0.50) K/uL Baso # (Auto) (0.00-0.20) K/uL Sodium (136-145) mmol/L Potassium (3.5-5.1) mmol/L Chloride (98-107) mmol/L Carbon Dioxide (21.0-32.0) mmol/L BUN (7-18) mg/dL Creatinine (0.51-1.17) mg/dL Est Cr Clr Drug Dosing mL/min Estimated GFR (MDRD) mL/min Glucose (70-99) mg/dL Lactic Acid 2.8 H (0.4-2.0) mmol/L Calcium (8.5-10.1) mg/dL Procalcitonin ng/mL JOANIE Results - Last 24 hrs: Microbiology 11/12/20 12:00 Aerobic Blood Culture - Preliminary Blood - Venous - Lab Draw NO GROWTH AFTER 1 DAY Anaerobic Blood Culture - Preliminary NO GROWTH AFTER 1 DAY 11/12/20 11:55 Aerobic Blood Culture - Preliminary Blood - Venous NO GROWTH AFTER 1 DAY Anaerobic Blood Culture - Preliminary NO GROWTH AFTER 1 DAY Med Orders - Current: Current Medications Albuterol/Ipratropium (Albuterol/Ipratropium 3.0-0.5 Mg/3 Ml Neb Soln) 3 ml NEB Q6HRRT PRN PRN Reason: Wheezing Arformoterol Tartrate (Arformoterol 15 Mcg/2 Ml Neb Soln) 15 mcg NEB BIDRT [facility] Last Admin: 11/13/20 20:02 Dose: 15 mcg Documented by: Aspirin (Aspirin 81 Mg Tab.Ec) 81 mg PO DAILY [facility] Last Admin: 11/13/20 07:25 Dose: 81 mg Documented by: Azithromycin (Azithromycin 250 Mg Tab) 500 mg PO DAILY [facility] Last Admin: 11/13/20 07:25 Dose: 500 mg Documented by: Budesonide (Budesonide 0.5 Mg/2 Ml Neb Susp) 0.5 mg NEB BIDRT [facility] Last Admin: 11/13/20 19:50 Dose: 0.5 mg Documented by: Cholecalciferol (Cholecalciferol (Vitamin D3) 25 Mcg Tab) 25 mcg PO DAILY [facility] Last Admin: 11/13/20 07:27 Dose: 25 mcg Documented by: Enoxaparin Sodium (Enoxaparin 40 Mg/0.4 Ml Syringe) 40 mg SUBCUT DAILY [facility] Last Admin: 11/13/20 07:28 Dose: 40 mg Documented by: Fish Oil (Fish Oil/Matlock-3 Fatty Acids 1 Gm Cap) 1 gm PO DAILY [facility] Last Admin: 11/13/20 07:25 Dose: 1 gm Documented by: Fluticasone Propionate (Fluticasone Propionate Nasal Una 16 Gm Bottle) 0 gm NASBOTH BID PRN PRN Reason: Congestion Ceftriaxone Sodium 1 gm/ (Sodium Chloride) 100 mls @ 200 mls/hr IV Q24H [facility] Last Admin: 11/13/20 12:08 Dose: 200 mls/hr Documented by: Losartan Potassium (Losartan 50 Mg Tab) 50 mg PO DAILY [facility] Last Admin: 11/13/20 07:26 Dose: 50 mg Documented by: Magnesium Oxide (Magnesium Oxide 400 Mg Tab) 200 mg PO Q2D [facility] Last Admin: 11/13/20 07:30 Dose: 200 mg Documented by: Metoprolol Succinate (Metoprolol Succinate 50 Mg Tab.Er) 50 mg PO DAILY [facility] Last Admin: 11/13/20 07:27 Dose: 50 mg Documented by: Multivitamins/Minerals/Vitamin C (Multivitamin Tab) 1 tab PO DAILY [facility] Last Admin: 11/13/20 07:27 Dose: 1 tab Documented by: Omeprazole (Omeprazole 20 Mg Cap.Cr) 20 mg PO DAILY PRN PRN Reason: Heartburn Oxybutynin Chloride (Oxybutynin 5 Mg Tab.Er) 5 mg PO BEDTIME [facility] Last Admin: 11/13/20 20:02 Dose: 5 mg Documented by: Prednisone (Prednisone 20 Mg Tab) 40 mg PO WITHBREAKFAST [facility] Sodium Chloride (Sodium Chloride 0.9% 10 Ml Syringe) 10 ml FLUSH ASDIRECTED PRN PRN Reason: Keep Vein Open Last Admin: 11/13/20 12:08 Dose: 10 ml Documented by: Vitamin E (Vitamin E (Ef-Ctrpx-Rrvadepped Acetate) 400 Unit Cap) 400 units PO DAILY [facility] Last Admin: 11/13/20 07:25 Dose: 400 units Documented by: Discontinued Medications Albuterol/Ipratropium (Albuterol/Ipratropium 3.0-0.5 Mg/3 Ml Neb Soln) 3 ml NEB ONETIME ONE Stop: 11/12/20 11:38 Last Admin: 11/12/20 12:01 Dose: 3 ml Documented by: Azithromycin (Azithromycin 250 Mg Tab) 500 mg PO ONETIME ONE Stop: 11/12/20 12:14 Last Admin: 11/12/20 12:21 Dose: 500 mg Documented by: Budesonide (Budesonide 0.5 Mg/2 Ml Neb Susp) 0.5 mg NEB ONETIME ONE Stop: 11/12/20 11:38 Last Admin: 11/12/20 12:01 Dose: 0.5 mg Documented by: Ceftriaxone Sodium 1 gm/ (Sodium Chloride) 100 mls @ 200 mls/hr IV ONETIME ONE Stop: 11/12/20 12:09 Last Admin: 11/12/20 12:07 Dose: 200 mls/hr Documented by: Lactated Ringer's (Ringers, Lactated) 1,000 mls @ 125 mls/hr IV ASDIRECTED [facility] Last Admin: 11/12/20 12:14 Dose: 125 mls/hr Documented by: Lactated Ringer's (Ringers, Lactated) 1,000 mls @ 75 mls/hr IV ASDIRECTED [facility] Last Admin: 11/12/20 21:12 Dose: 75 mls/hr Documented by: Methylprednisolone Sodium Succinate (Methylprednisolone Sodium Succinate 125 Mg/2 Ml Sdv) 125 mg IVPUSH ONETIME ONE Stop: 11/12/20 11:54 Last Admin: 11/12/20 12:07 Dose: 125 mg Documented by: Methylprednisolone Sodium Succinate (Methylprednisolone Sodium Succinate 125 Mg/2 Ml Sdv) 125 mg IVPUSH Q8H KORTNEY Last Admin: 11/13/20 20:01 Dose: Not Given Documented by: - Exam Quality Assessment: Denies: Supplemental Oxygen General: Reports: Alert, Oriented HEENT: Reports: Pupils Equal, Pupils Reactive, EOMI, Mucous Membr. Moist/[place] Neck: Reports: Supple Lungs: Reports: Clear to Auscultation, Normal Respiratory Effort Cardiovascular: Reports: Regular Rate, Regular Rhythm GI/Abdominal Exam: Normal Bowel Sounds, Soft, Non-Tender (Female) Exam: Deferred Rectal (Female) Exam: Deferred Back Exam: Reports: Normal Inspection, Full Range of Motion Extremities: Normal Inspection, Normal Range of Motion, Non-Tender, Normal Capillary Refill, Pedal Edema (scant bilateral edema) Skin: Reports: Warm, Dry, Intact Neurological: Reports: No New Focal Deficit Psy/Mental Status: Reports: Alert, Normal Affect
[2020-11-14 07:21] VITALS: BP 120/54; PULSE 58
[2020-11-14 07:30] LABS: CHLORIDE,CL 101 mmol/L (98-107); SODIUM,NA 137 mmol/L (136-145)
[2020-11-14] MEDS: Aspirin 81 MG Tab.EC PO SCH (07:39)
[2020-11-14] MEDS: Budesonide 0.5 MG/2 ML Neb Susp NEB SCH (07:39)
[2020-11-14] MEDS: Azithromycin 250 MG Tab PO SCH (07:39)
[2020-11-14] MEDS: Arformoterol 15 MCG/2 ML Neb Soln NEB SCH (07:39)
[2020-11-14] MEDS: Losartan 50 MG Tab PO SCH (07:39)
[2020-11-14] MEDS: Multivitamin Tab PO SCH (07:39)
[2020-11-14] MEDS: Vitamin E (dl-alpha-tocopherol acetate) 400 Unit Cap PO SCH (07:39)
[2020-11-14] MEDS: Cholecalciferol (Vitamin D3) 25 MCG Tab PO SCH (07:39)
[2020-11-14] MEDS: Fish Oil/Omega-3 Fatty Acids 1 Gm Cap PO SCH (07:39)
[2020-11-14] MEDS: Metoprolol Succinate 50 MG Tab.ER PO SCH (07:40)
[2020-11-14] MEDS: Enoxaparin 40 MG/0.4 ML Syringe SUBCUT SCH (07:40)
[2020-11-14] MEDS: Sodium Chloride 0.9% 10 ML Syringe FLUSH PRN (07:41)
[2020-11-14] MEDS ORDERED: cefTRIAXone 1 GM in Sodium Chloride 0.9% 100 ML IV SCH (08:00)
[2020-11-14] MEDS ORDERED: predniSONE 20 MG Tab PO SCH (08:00)
== END 2020-11-14 13:00 | disposition home or self-care (01) | DRG 191 ==
LOC: LL.ED 11:20 → LL.MS 12:50
PROVIDERS: ADMIT Nurse Practitioner Family; ATTEND Nurse Practitioner Family
DX: J44.1 Chronic obstructive pulmonary disease with (acute) exacerbation (principal); N39.0 Urinary tract infection, site not specified; I47.1 Supraventricular tachycardia; C20 Malignant neoplasm of rectum; R09.02 Hypoxemia; J30.9 Allergic rhinitis, unspecified; H54.7 Unspecified visual loss; H91.90 Unspecified hearing loss, unspecified ear; E78.00 Pure hypercholesterolemia, unspecified; R31.9 Hematuria, unspecified; E78.5 Hyperlipidemia, unspecified; K57.90 Diverticulosis of intestine, part unspecified, without perforation or abscess without bleeding; M19.90 Unspecified osteoarthritis, unspecified site; M81.0 Age-related osteoporosis without current pathological fracture; M06.9 Rheumatoid arthritis, unspecified; I10 Essential (primary) hypertension; R53.1 Weakness; Z85.038 Personal history of other malignant neoplasm of large intestine; Z93.3 Colostomy status; Z88.5 Allergy status to narcotic agent; Z79.82 Long term (current) use of aspirin; Z79.899 Other long term (current) drug therapy; B95.2 Enterococcus as the cause of diseases classified elsewhere; K21.9 Gastro-esophageal reflux disease without esophagitis; Z86.010 Personal history of colon polyps; K59.09 Other constipation; D63.0 Anemia in neoplastic disease; F41.9 Anxiety disorder, unspecified; F32.9 Major depressive disorder, single episode, unspecified; Z90.89 Acquired absence of other organs; Z98.890 Other specified postprocedural states
CPT/HCPCS: 36415; 71046; 80048; 80053; 83605; 83735; 84145; 84484; 85025; 86140; 87040; 93005; 93010; 94640; 96365; 96375; 99223; 99232; 99239; 99285-25; A9270-GY; J0696; J1650; J2930; J7120; J7512; J7620-GY

== ENCOUNTER 2021-05-05 17:27 | Emergency (ER) | payer MEDICARE, MEDICAID ==
[2021-05-05] MEDS ORDERED: cloNIDine 0.1 MG Tab PO ONE (17:32)
--- NOTE | 2021-05-05 18:08 | EDM.PDOC ---
ED HPI GENERAL MEDICAL PROBLEM - General Chief Complaint: General Stated Complaint: hypertension Time Seen by Provider: 05/05/21 17:30 Source of Information: Reports: Patient History Limitations: Reports: No Limitations - History of Present Illness INITIAL COMMENTS - FREE TEXT/NARRATIVE: Pt. presents to ER with complaints of elevated blood pressure. Pt. states that she noticed it was elevated during a random check today on home monitor. Denies any chest pain or shortness of breath. No lightheadedness, weakness, or numbness/tingling in extremities or face. No problems with speech or ambulation. Pt. states that she was recently taken off toprol XL 50 mg once daily. She states that her losartan was also decreased. I do not have access to her clinic record, but she states that the reason was because her blood pressure was too low. Pt. has a history of PSVT and pulmonary hypertension in the past. She denies any episodes or racing heart of palpitations recently. Pt. states that she has also had a 13 day history of dry, non-productive cough. Denies any hemoptysis. No shortness of breath. Onset: Today Location: Reports: Generalized - Related Data Allergies Allergy/AdvReac Type Severity Reaction Status Date / Time codeine Allergy Cannot Verified 11/12/20 12:00 Remember Home Meds: Home Meds Fluticasone Propionate [Flonase] 2 sprays NASBOTH BID PRN 10/01/14 [History] Omeprazole [Prilosec] 20 mg PO DAILY PRN 10/01/14 [History] Losartan [Cozaar] 25 mg PO DAILY 08/15/18 [History] Oxybutynin [Oxybutynin ER] 5 mg PO BEDTIME 05/15/20 [History] Albuterol [Take Home: Albuterol 18 GM, 1 INH Pack] 1 - 2 puff INH Q4HR PRN 05/16/20 [History] Acetaminophen 500 mg PO Q4H PRN 07/18/20 [History] Aspirin [Aspirin EC] 1 tab PO Q4H PRN 07/18/20 [History] Cholecalciferol (Vitamin D3) [Vitamin D3] 25 mcg PO DAILY 07/18/20 [History] Loperamide [Imodium] 1 mg PO ASDIRECTED PRN 07/18/20 [History] Magnesium Oxide [Magnesium] 250 mg PO Q2D 07/18/20 [History] Multivit-Min/Iron/Folic/Lutein [Centrum Silver Women Tablet] 1 tab PO DAILY 07/18/20 [History] Mullan-3 Fatty Acids/Fish Oil [Fish Oil 1,000 mg Capsule] 1 cap PO DAILY 07/18/20 [History] Vitamin E 1 cap PO DAILY 07/18/20 [History] Metoprolol Succinate [Toprol XL] 50 mg PO DAILY #30 tab.er 05/05/21 [Rx] Tiotropium [Spiriva HandiHaler] 1 puff INH DAILY 05/05/21 [History] Past Medical History HEENT History: Reports: Allergic Rhinitis, Hard of Hearing, Impaired Vision, Other (See Below) Other HEENT History: She has been noncompliant with her glasses. No current hearing aide therapy with moderate bilateral presbycusis Cardiovascular History: Reports: Arrhythmia, Heart Murmur, High Cholesterol, Hypertension Other Cardiovascular History: Mild bilateral carotid occlusive disease. Grade 1 diastolic dysfunction by echocardiogram with mild left ventricular hypertrophy. History of PSVT. Respiratory History: Reports: Bronchitis, Recurrent, COPD, Intubation, Previous, Pneumonia, Recurrent Gastrointestinal History: Reports: Chronic Constipation, Colon Polyp, Diverticulosis, GERD, GI Bleed Other Gastrointestinal History: Diffuse diverticulosis. 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 Previous minimal lower GI bleed secondary to this rectal adenocarcinoma, which was initially diagnosed on 05/16/2020 by colonoscopy as below. Note previous history of recurrent diffuse colonic polyps since 2002 including removal of mild dysplastic rectal polyp at that time with history of tubular adenomas, hyperplastic colonic polyps and adenomatous colonic polyps. Anal warts. 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 Otherwise, Full term without complications during pregnancies or deliveries. Menopause at age 48. Possible previous dysfunctional uterine bleeding? Musculoskeletal History: Reports: Arthritis, Back Pain, Chronic, Neck Pain, Chronic, Osteoarthritis, Osteoporosis, RA, Other (See Below) Other Musculoskeletal History: Mild to moderate kyphosis. Neurological History: Reports: Concussion, Head Trauma Other Neuro History: Head concussion age 8. Cerebral microvascular disease by CT scan. Psychiatric History: Reports: Anxiety, Depression Endocrine/Metabolic History: Reports: Hypokalemia, Hypomagnesemia, Obesity/BMI 30+, Osteopenia, Osteoporosis, Other (See Below) Other Endocrine/Metabolic History: Hypocalcemia. Hypoalbuminemia. Hematologic History: Reports: Anemia Immunologic History: Reports: None Oncologic (Cancer) History: Reports: Colon, Other (See Below) Other Oncologic History: Rectal adenocarcinoma as above. Dermatologic History: Reports: None - Infectious Disease History Infectious Disease History: Reports: Other (See Below) Other Infectious Disease History: She is uncertain about her childhood diseases. - Past Surgical History Head Surgeries/Procedures: Reports: None HEENT Surgical History: Reports: Oral Surgery, Other (See Below) Other HEENT Surgeries/Procedures: Complete upper teeth extraction with multiple lower teeth extractions in the patient only wearing upper dentures. Cardiovascular Surgical History: Reports: None Respiratory Surgical History: Reports: None GI Surgical History: Reports: Appendectomy, Colon, Colonoscopy, Polypectomy, Other (See Below) Other GI Surgeries/Procedures: Abdominal perineal resection with partial colectomy of the descending colon and mesorectal excision of distal rectal adenocarcinoma with concomitant colostomy placement on 07/12/2020. Multiple previous colonoscopies including previous polypectomies as above. Last colonoscopy on 05/16/2020 with evidence of recurrent distal rectal polyp and additional probable 2.5 cm distal rectal carcinoma requiring surgery as above. Previous colonoscopies on 05/08/2010 and 12/11/2012. Hemorrhoidectomy with colonoscopy in 2002. Appendectomy at an unknown age. Female Surgical History: Reports: D&C, Dilitation & Evacuation, Other (See Below) Other Female Surgeries/Procedures: D&Cs for SAB as above with possible additional D&C secondary to dysfunctional uterine bleeding. Endocrine Surgical History: Reports: None Neurological Surgical History: Reports: None Musculoskeletal Surgical History: Reports: None, Joint Replacement Oncologic Surgical History: Reports: None Dermatological Surgical History: Reports: None - Past Imaging History Past Imaging History: Reports: Cardiac Echo (Last echocardiogram on 10/11/17 with ejection fraction of 5560 percent with otherwise findings as above. Previous echocardiogram on 01/26/11.), Carotid US (01/26/11), CAT Scan (CT of the abdomen and pelvis on 05/03/07.), DEXA Scan (01/26/11 and 10/08/06), HIDA Scan (Negative on 10/14/06), Mammogram (Last on 01/05/11), MRI (MRI of the abdomen and pelvis on 05/14/08.), Ultrasound (Gallbladder ultrasound on 04/15/11 and 10/01/06.) Social & Family History - Family History HEENT: Reports: Other (See Below) Other HEENT Family History: Food allergies in brother and sister. Respiratory: Reports: None GI: Reports: Colon Polyps, Other (See Below) Other GI Family History: Multiple family members on maternal and paternal side with history of colonic polyps, including in sister : Reports: None OBGYN: Reports: None Musculoskeletal: Reports: None Neurological: Reports: CVA, Other (See Below) Other Neurological Family History: Sister with CVA Psychiatric: Reports: None Endocrine/Metabolic: Reports: Hypothyroidism, Other (See Below) Other Endocrine/Metabolic Family History: Son with hypothyroidism. Hematologic: Reports: None Immunologic: Reports: None Dermatologic: Reports: None Oncologic: Reports: Breast, Lung, Skin, Other (See Below) Other Oncologic Family History: Mother with fatal breast cancer at age 73. Brother with unknown type of skin cancer in the facial region. Daughter with lung cancer at age 65 with history of tobacco use. 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 Denies: Fever, Chills, Malaise, Fatigue HEENT: Reports: No Symptoms Respiratory: Reports: Cough Cardiovascular: Reports: Blood Pressure Problem Endocrine: Reports: No Symptoms GI/Abdominal: Reports: No Symptoms : Reports: No Symptoms Musculoskeletal: Reports: No Symptoms Skin: Reports: No Symptoms Neurological: Reports: No Symptoms Psychiatric: Reports: No Symptoms Hematologic/Lymphatic: Reports: No Symptoms ED EXAM, GENERAL - Physical Exam Exam: See Below Exam Limited By: No Limitations General Appearance: Alert, WD/WN, No Apparent Distress Eye Exam: Bilateral Eye: EOMI, PERRL Nose: Normal Inspection Throat/Mouth: Normal Inspection, Normal Lips, Normal Oropharynx, Normal Voice, No Airway Compromise Head: Atraumatic, Normocephalic Neck: Normal Inspection, Supple, Non-Tender, Full Range of Motion Respiratory/Chest: No Respiratory Distress, Lungs Clear, Normal Breath Sounds, No Accessory Muscle Use, Chest Non-Tender Cardiovascular: Normal Peripheral Pulses, No Edema, No JVD, No Murmur, No Rub, Tachycardia (mild tachycardia at 102) Peripheral Pulses: 4+: Radial (R) GI/Abdominal: Soft, Non-Tender, No Distention, No Mass (Female) Exam: Deferred Rectal (Female) Exam: Deferred Back Exam: Normal Inspection, Full Range of Motion Extremities: Normal Inspection, Normal Range of Motion, Non-Tender, No Pedal Edema, Normal Capillary Refill Neurological: Alert, Oriented, CN II-XII Intact, Normal Cognition, Normal Gait, Normal Reflexes, No Motor/Sensory Deficits Psychiatric: Normal Affect, Normal Mood Skin Exam: Warm, Dry, Intact, Normal Color, No Rash Lymphatic: No Adenopathy #1 Interpretation Rhythm: NSR [place]: Normal P-Wave: Present QRS: Normal ST-T: Normal QT: Normal Course - Vital Signs Last Recorded V/S: Last Vital Signs Temp 36.8 C 05/05/21 17:30 Pulse 110 H 05/05/21 17:33 Resp 18 05/05/21 17:30 BP 182/106 H 05/05/21 17:47 Pulse Ox 99 05/05/21 17:30 - Orders/Labs/Meds Orders: Active Orders 24 hr Category Date Time Status EKG Documentation Completion [RC] ASDIRECTED Care 05/05/21 17:44 Active CORONAVIRUS COVID-19 JJ [MOLEC] Routine Lab 05/05/21 17:54 Received EKG 12 Lead [EK] Stat Ther 05/05/21 17:44 Ordered Labs: Laboratory Tests 05/05/21 05/05/21 05/05/21 Range/Units 17:47 17:47 17:54 WBC 6.9 (4.0-10.2) K/uL RBC 4.43 (3.77-5.09) M/uL Hgb 13.5 D (11.7-15.5) g/dL Hct 40.7 (34.0-46.0) % MCV 91.9 (84.0-98.0) fL MCH 30.5 (28.2-33.3) pg MCHC 33.2 (31.7-36.0) g/dL RDW 13.1 (11.2-14.1) % Plt Count 318 (150-350) K/uL Neut % (Auto) 69.5 (45.0-80.0) % Lymph % (Auto) 19.9 (10.0-50.0) % [place] % (Auto) 7.1 (2.0-14.0) % Eos % (Auto) 2.9 (0.0-5.0) % Baso % (Auto) 0.6 (0.0-2.0) % Neut # (Auto) 4.83 (1.40-7.00) K/uL Lymph # (Auto) 1.38 (0.50-3.50) K/uL [place] # (Auto) 0.49 (0.00-1.00) K/uL Eos # (Auto) 0.20 (0.00-0.50) K/uL Baso # (Auto) 0.04 (0.00-0.20) K/uL Sodium 137 (136-145) mmol/L Potassium 4.2 (3.5-5.1) mmol/L Chloride 99 (98-107) mmol/L Carbon Dioxide 29.1 (21.0-32.0) mmol/L Anion Gap 8.9 (7-15) meq/L BUN 10 (7-18) mg/dL Creatinine 0.65 (0.51-1.17) mg/dL Est Cr Clr Drug Dosing 44.63 mL/min Estimated GFR (MDRD) > 60 mL/min Glucose 99 (70-99) mg/dL Calcium 8.9 (8.5-10.1) mg/dL Phosphorus 4.2 (2.6-4.7) mg/dL Magnesium 1.8 (1.8-2.4) mg/dL Total Bilirubin 0.3 (0.2-1.0) mg/dL AST 20 (15-37) U/L ALT 22 (12-78) U/L Alkaline Phosphatase 109 (46-116) IU/L Troponin I High Sens 18 (<=51) ng/L Total Protein 7.4 (6.4-8.2) g/dL Albumin 3.9 (3.4-5.0) g/dL TSH, Ultra Sensitive 1.325 (0.358-3.740) mIU/mL SARS-CoV-2 Ag (Rapid) Negative (NEGATIVE) Meds: Medications Discontinued Medications Generic Name Dose Route Start Last Admin Trade Name Madi PRN Reason Stop Dose Admin Clonidine HCl 0.1 mg 05/05/21 17:32 05/05/21 17:47 Clonidine 0.1 Mg Tab PO 05/05/21 17:33 0.1 mg ONETIME ONE Administration Metoprolol Succinate 50 mg 05/05/21 18:15 Metoprolol Succinate 50 Mg Tab.Er PO 05/05/21 18:16 ONETIME ONE Departure - Departure Time of Disposition: 18:38 Disposition: Home, Self-Care 01 Clinical Impression: Hypertension Qualifiers: Hypertension type: essential hypertension Qualified Code(s): I10 - Essential (primary) hypertension - Discharge Information Prescriptions: Metoprolol Succinate [Toprol XL] 50 mg PO DAILY #30 tab.er Instructions: Metoprolol Extended-Release Tablets, Hypertension, Adult Forms: ED Department Discharge Additional Instructions: Home to rest. Start Toprol XL 50 mg once daily tomorrow. Make sure you go slowly when getting up, as this medication can make you lightheaded, especially when starting it. Follow-up in clinic this week for recheck of blood pressure. Return to ER if you have chest pain, shortness of breath. Sepsis Event Note (ED) - Evaluation Sepsis Screening Result: No Definite Risk - Focused Exam Vital Signs: Vital Signs Temp Pulse Resp BP BP Pulse Ox 05/05/21 17:47 182/106 H 05/05/21 17:33 110 H 182/106 H 05/05/21 17:30 36.8 C 116 H 18 202/83 H 99 - Problem List Review Problem List Initiated/Reviewed/Updated: Yes - My Orders Last 24 Hours: My Active Orders 05/05/21 17:44 EKG Documentation Completion [RC] ASDIRECTED EKG 12 Lead [EK] Stat 05/05/21 17:54 CORONAVIRUS COVID-19 JJ [MOLEC] Routine - Assessment/Plan Last 24 Hours: My Active Orders 05/05/21 17:44 EKG Documentation Completion [RC] ASDIRECTED EKG 12 Lead [EK] Stat 05/05/21 17:54 CORONAVIRUS COVID-19 JJ [MOLEC] Routine Plan: Home to rest. Start Toprol XL 50 mg once daily tomorrow. Make sure you go slowly when getting up, as this medication can make you lightheaded, especially when starting it. Follow-up in clinic this week for recheck of blood pressure. Return to ER if you have chest pain, shortness of breath.
[2021-05-05 18:15] LABS: ANION GAP 8.9 meq/L (7-15); CHLORIDE,CL 99 mmol/L (98-107); SODIUM,NA 137 mmol/L (136-145)
[2021-05-05] MEDS ORDERED: Metoprolol Succinate 50 MG Tab.ER PO ONE (18:15)
[2021-05-05 18:50] VITALS: BP 150/82
[2021-05-05 19:37] VITALS: PULSE 98
== END 2021-05-05 18:58 | disposition home or self-care (01) ==
LOC: LL.ED 17:27
DX: I10 Essential (primary) hypertension (principal); E78.00 Pure hypercholesterolemia, unspecified; I25.2 Old myocardial infarction; J44.9 Chronic obstructive pulmonary disease, unspecified; K21.9 Gastro-esophageal reflux disease without esophagitis; E66.9 Obesity, unspecified; Z68.31 Body mass index [BMI] 31.0-31.9, adult; Z88.5 Allergy status to narcotic agent; Z79.899 Other long term (current) drug therapy; Z20.822 Contact with and (suspected) exposure to COVID-19
CPT/HCPCS: 36415; 80053; 83735; 84100; 84443; 84484; 85025; 87426; 93005; 93010; 99283-25; 99284; A9270-GY

== ENCOUNTER 2021-07-20 16:28 | Observation (INO) | payer MEDICARE, MEDICAID ==
[2021-07-20] MEDS ORDERED: Sodium Chloride 0.9% 10 ML Syringe FLUSH PRN (17:07)
[2021-07-20] MEDS ORDERED: Lactated Ringers 1,000 ML IV SCH (17:15)
[2021-07-20 17:36] LABS: ANION GAP 7.1 meq/L (7-15); CHLORIDE,CL 101 mmol/L (98-107); SODIUM,NA 137 mmol/L (136-145)
[2021-07-20 17:37] LABS: RESPIRATORY SYNCYTIAL VIR NAA NEGATIVE (NEGATIVE)
[2021-07-20 17:41] LABS: CORONAVIRUS COVID-19 NAA POSITIVE (NEGATIVE)
[2021-07-20] MEDS ORDERED: Acetaminophen 325 MG Tab PO SCH (19:00)
[2021-07-20] MEDS ORDERED: Omeprazole 20 MG Cap.CR PO PRN (20:55)
[2021-07-20] MEDS ORDERED: Fluticasone Propionate Nasal Spray 16 GM Bottle NASBOTH PRN (20:55)
[2021-07-21] MEDS: Acetaminophen 325 MG Tab PO PRN ×2 (00:45→12:32)
[2021-07-21] MEDS ORDERED: Cholecalciferol (Vitamin D3) 25 MCG Tab PO SCH (08:00)
[2021-07-21] MEDS ORDERED: Magnesium Chloride 64 MG Tab.ER PO SCH (08:00)
[2021-07-21] MEDS ORDERED: Tiotropium Inhaler 18 MCG Inhalation Powder Cap Kit of 5 INH SCH (08:00)
[2021-07-21] MEDS ORDERED: Losartan 50 MG Tab PO SCH (08:00)
[2021-07-21 08:35] LABS: ANION GAP 8.7 meq/L (7-15); CHLORIDE,CL 98 mmol/L (98-107); SODIUM,NA 137 mmol/L (136-145)
[2021-07-21 12:25] VITALS: BP 165/86; PULSE 99
[2021-07-21] MEDS ORDERED: Oxybutynin 5 MG Tab.ER PO SCH (20:00)
== END 2021-07-21 15:10 | disposition home or self-care (01) ==
LOC: LL.ED 16:28 → INTOOBSV 20:30 → LL.MS 20:30
PROVIDERS: ADMIT Hospitalist; ATTEND Hospitalist
DX: U07.1 COVID-19 (principal); I10 Essential (primary) hypertension; J44.9 Chronic obstructive pulmonary disease, unspecified; E78.2 Mixed hyperlipidemia; E87.6 Hypokalemia; E83.42 Hypomagnesemia; Z88.5 Allergy status to narcotic agent; Z98.890 Other specified postprocedural states; Z87.891 Personal history of nicotine dependence; Z79.899 Other long term (current) drug therapy; Z79.82 Long term (current) use of aspirin
CPT/HCPCS: 0241U; 36415; 71046; 80053; 81003; 83605; 85025; 85027; 85379; 99284-25; 99285; A9270-GY; G0378; J7120

== ENCOUNTER 2021-09-21 21:25 | Observation (INO) | payer MEDICARE, MEDICAID ==
[2021-09-21] MEDS ORDERED: Sodium Chloride 0.9% 10 ML Syringe FLUSH PRN (21:38)
[2021-09-21] MEDS ORDERED: Ondansetron 4 MG/2 ML SDV IV ONE (21:39)
[2021-09-21] MEDS ORDERED: Morphine 4 MG/ML Syringe IVPUSH ONE (21:40)
[2021-09-21] MEDS: Lactated Ringers 1,000 ML IV ONE (21:56)
[2021-09-21] MEDS ORDERED: Iopamidol 612 MG/ML 100 ML Bottle IVPUSH ONE (22:02)
[2021-09-21 22:18] LABS: ANION GAP 11.6 meq/L (7-15); CHLORIDE,CL 97 mmol/L (98-107); SODIUM,NA 135 mmol/L (136-145)
[2021-09-21 22:21] LABS: PTT,PARTIAL THROMBOPLSTIN TIME 23.4 SEC (23.6-29.8)
[2021-09-22] MEDS ORDERED: GI Cocktail Oral Solution 30 ML PO ONE (00:21)
[2021-09-22] MEDS ORDERED: Ondansetron 4 MG/2 ML SDV IVPUSH PRN (01:17)
[2021-09-22] MEDS ORDERED: Acetaminophen 325 MG Tab PO PRN (01:17)
[2021-09-22] MEDS ORDERED: Morphine 2 MG/ML SYRINGE IVPUSH PRN (01:17)
[2021-09-22] MEDS: Lactated Ringers 1,000 ML IV ONE (06:07)
[2021-09-22] MEDS ORDERED: Lactated Ringers 1,000 ML IV SCH (06:45)
[2021-09-22 07:16] VITALS: PULSE 82
[2021-09-22] MEDS ORDERED: Enoxaparin 40 MG/0.4 ML Syringe SUBCUT SCH (08:00)
[2021-09-22 08:21] LABS: ANION GAP 6.6 meq/L (7-15); CHLORIDE,CL 102 mmol/L (98-107); SODIUM,NA 139 mmol/L (136-145)
[2021-09-22 16:10] VITALS: BP 146/76
== END 2021-09-22 17:30 | disposition home or self-care (01) ==
LOC: LL.ED 21:25 → LL.MS 09-22 00:30
PROVIDERS: ADMIT Nurse Practitioner Family; ATTEND Nurse Practitioner Family
DX: R11.2 Nausea with vomiting, unspecified (principal); K57.90 Diverticulosis of intestine, part unspecified, without perforation or abscess without bleeding; K44.9 Diaphragmatic hernia without obstruction or gangrene; E83.42 Hypomagnesemia; E87.1 Hypo-osmolality and hyponatremia; Z66 Do not resuscitate; I10 Essential (primary) hypertension; J44.9 Chronic obstructive pulmonary disease, unspecified; E78.00 Pure hypercholesterolemia, unspecified; F41.9 Anxiety disorder, unspecified; F32.A Depression, unspecified; E66.9 Obesity, unspecified; Z68.31 Body mass index [BMI] 31.0-31.9, adult; Z93.3 Colostomy status; Z88.5 Allergy status to narcotic agent; H54.7 Unspecified visual loss; K21.9 Gastro-esophageal reflux disease without esophagitis; Z98.890 Other specified postprocedural states; Z90.49 Acquired absence of other specified parts of digestive tract; Z79.82 Long term (current) use of aspirin; Z79.899 Other long term (current) drug therapy; Z85.038 Personal history of other malignant neoplasm of large intestine
CPT/HCPCS: 36415; 74177; 80048; 80053; 81001; 83605; 83690; 83735; 85025; 85610; 85730; 86140; 87086; 96372; 96374; 99217; 99220; 99285-25; A9270-GY; G0378; J1650; J2405; J3490; J7120; Q9967

== ENCOUNTER 2023-03-22 23:41 | Emergency (ER) | payer MEDICARE, MEDICAID ==
[2023-03-22 23:53] VITALS: BP 149/97; PULSE 87
[2023-03-22] MEDS ORDERED: Ondansetron 4 MG Tab.DIS PO ONE (23:56)
[2023-03-22] MEDS ORDERED: Aluminum Hydroxide/Magnesium Hydroxide/Simethicone Susp 30 ML Cup PO ONE (23:56)
== END 2023-03-23 00:25 | disposition home or self-care (01) ==
LOC: LL.ED 23:41
DX: K30 Functional dyspepsia (principal); I10 Essential (primary) hypertension; Z88.5 Allergy status to narcotic agent; K21.9 Gastro-esophageal reflux disease without esophagitis; Z79.899 Other long term (current) drug therapy
CPT/HCPCS: 99283; 99284; A9270-GY

== ENCOUNTER 2023-11-30 16:01 | Emergency (ER) | payer MEDICARE, MEDICAID ==
[2023-11-30 16:35] VITALS: BP 134/69; PULSE 88
== END 2023-11-30 17:30 ==
LOC: LL.ED 16:01
DX: M54.6 Pain in thoracic spine (principal); M19.90 Unspecified osteoarthritis, unspecified site; K21.9 Gastro-esophageal reflux disease without esophagitis; J44.9 Chronic obstructive pulmonary disease, unspecified; I10 Essential (primary) hypertension; E66.9 Obesity, unspecified; Z79.82 Long term (current) use of aspirin; Z79.899 Other long term (current) drug therapy; Z88.5 Allergy status to narcotic agent
CPT/HCPCS: 72070; 99283; 99284

== ENCOUNTER 2023-12-07 21:22 | Emergency (ER) | payer MEDICARE, MEDICAID ==
[2023-12-07] MEDS: Ondansetron 4 MG Tab.DIS PO ONE (21:34)
[2023-12-07 21:38] VITALS: BP 175/75; PULSE 80
[2023-12-07] MEDS: Aluminum Hydroxide/Magnesium Hydroxide/Simethicone Susp 30 ML Cup PO ONE (22:17)
== END 2023-12-07 22:25 | disposition home or self-care (01) ==
LOC: LL.ED 21:22
DX: R10.84 Generalized abdominal pain (principal); R14.0 Abdominal distension (gaseous); I10 Essential (primary) hypertension; E78.00 Pure hypercholesterolemia, unspecified; J44.9 Chronic obstructive pulmonary disease, unspecified; E66.9 Obesity, unspecified; Z79.899 Other long term (current) drug therapy; Z79.82 Long term (current) use of aspirin; Z88.5 Allergy status to narcotic agent
CPT/HCPCS: 99283; A9270

== ENCOUNTER 2024-04-17 20:33 | Emergency (ER) | payer MEDICARE, MEDICAID ==
[2024-04-17] MEDS ORDERED: Aspirin 81 MG Tab.Chew ONE (20:37)
[2024-04-17] MEDS: Diltiazem 25 MG/5 ML SDV IVPUSH ONE (20:37)
[2024-04-17] MEDS ORDERED: Sodium Chloride 0.9% 10 ML Syringe FLUSH PRN (20:43)
[2024-04-17] MEDS: Sodium Chloride 0.9% 1,000 ML IV ONE (20:50)
[2024-04-17] MEDS: Aspirin 81 MG Tab.Chew PO ONE (20:50)
[2024-04-17 21:11] LABS: BASOPHILS ABSOLUTE AUTO 0.01 K/uL (0.00-0.20); BASOPHILS PERCENT AUTO 0.1 % (0.0-2.0); EOSINOPHILS ABSOLUTE AUTO 0.15 K/uL (0.00-0.50); EOSINOPHILS PERCENT AUTO 1.8 % (0.0-5.0); HEMATOCRIT 40.8 % (34.0-46.0); HEMOGLOBIN 13.5 g/dL (11.7-15.5); LYMPHOCYTES ABSOLUTE AUTO 1.47 K/uL (0.50-3.50); LYMPHOCYTES PERCENT AUTO 17.6 % (10.0-50.0); MEAN CORPUSCULAR HEMOGLOBIN 30.1 pg (28.2-33.3); MEAN CORPUSCULAR HGB CONC 33.1 g/dL (31.7-36.0); MEAN CORPUSCULAR VOLUME 91.1 fL (84.0-98.0); MONOCYTES ABSOLUTE AUTO 0.82 K/uL (0.00-1.00); MONOCYTES PERCENT AUTO 9.8 % (2.0-14.0); NEUTROPHILS PERCENT AUTO 70.7 % (45.0-80.0); PLATELET COUNT,PLT 348 K/uL (150-350); RED BLOOD CELL COUNT 4.48 M/uL (3.77-5.09); RED CELL DISTRIBUTION WIDTH 13.6 % (11.2-14.1); WHITE BLOOD CELL COUNT,WBC 8.4 K/uL (4.0-10.2)
[2024-04-17 21:37] LABS: ALANINE AMINOTRANSFERASE,ALT 22 U/L (12-78); ALBUMIN 3.3 g/dL (3.4-5.0); ALKALINE PHOSPHATASE 77 IU/L (46-116); ANION GAP 11.9 meq/L (7-15); ASPARTATE AMNIOTRANSFERASE,AST 20 U/L (15-37); BILIRUBIN TOTAL 0.2 mg/dL (0.2-1.0); BLOOD UREA NITROGEN,BUN 16 mg/dL (7-18); CALCIUM 8.6 mg/dL (8.5-10.1); CARBON DIOXIDE,CO2 26.1 mmol/L (21.0-32.0); CHLORIDE,CL 98 mmol/L (98-107); CREATININE 1.19 mg/dL (0.51-1.17); GLUCOSE RANDOM 142 mg/dL (70-99); POTASSIUM,K 3.7 mmol/L (3.5-5.1); PRO B-TYPE NATRIUR PEPT,BNPPRO 227 pg/mL (0-125); PROTEIN TOTAL,TP 7.2 g/dL (6.4-8.2); SODIUM,NA 136 mmol/L (136-145)
[2024-04-17 21:39] LABS: PROTHROMBIN TIME 9.9 SEC (9.0-11.1)
[2024-04-17 21:39] LABS: ESTIMATED GFR 44 mL/min (>=60)
[2024-04-17 21:51] VITALS: BP 122/84; PULSE 75
[2024-04-17] MEDS: Diltiazem 120 MG Cap.CD PO ONE (21:51)
== END 2024-04-17 22:05 | disposition home or self-care (01) ==
LOC: LL.ED 20:33
DX: I11.9 Hypertensive heart disease without heart failure (principal); I48.0 Paroxysmal atrial fibrillation; J44.9 Chronic obstructive pulmonary disease, unspecified; E66.9 Obesity, unspecified; Z90.49 Acquired absence of other specified parts of digestive tract; Z79.899 Other long term (current) drug therapy; Z79.51 Long term (current) use of inhaled steroids; Z79.82 Long term (current) use of aspirin; Z88.5 Allergy status to narcotic agent
CPT/HCPCS: 36415; 71045; 80053; 83880; 84484; 85025; 85610; 93010; 96361; 96374; 99284; 99285-25; A9270-GY; J3490; J7030

== ENCOUNTER 2024-06-02 14:14 | Inpatient (IN) | payer MEDICARE, MEDICAID ==
[2024-06-02 14:38] LABS: BASOPHILS ABSOLUTE AUTO 0.04 K/uL (0.00-0.20); BASOPHILS PERCENT AUTO 0.5 % (0.0-2.0); EOSINOPHILS ABSOLUTE AUTO 0.06 K/uL (0.00-0.50); EOSINOPHILS PERCENT AUTO 0.7 % (0.0-5.0); HEMATOCRIT 41.4 % (34.0-46.0); HEMOGLOBIN 13.3 g/dL (11.7-15.5); IMMATURE GRAN ABSOLUTE AUTO 0.02 10^3/uL (0.00-0.50); IMMATURE GRAN PERCENT AUTO 0.2 % (0.0-5.0); LYMPHOCYTES ABSOLUTE AUTO 1.16 K/uL (0.50-3.50); LYMPHOCYTES PERCENT AUTO 13.9 % (10.0-50.0); MEAN CORPUSCULAR HEMOGLOBIN 29.6 pg (28.2-33.3); MEAN CORPUSCULAR HGB CONC 32.1 g/dL (31.7-36.0); MONOCYTES ABSOLUTE AUTO 0.65 K/uL (0.00-1.00); MONOCYTES PERCENT AUTO 7.8 % (2.0-14.0); NEUTROPHILS ABSOLUTE AUTO 6.43 K/uL (1.40-7.00); NEUTROPHILS PERCENT AUTO 76.9 % (45.0-80.0); PLATELET COUNT,PLT 353 K/uL (150-350); RED CELL DISTRIBUTION WIDTH 13.2 % (11.2-14.1); WHITE BLOOD CELL COUNT,WBC 8.4 K/uL (4.0-10.2)
[2024-06-02 14:58] LABS: PROTHROMBIN TIME 9.6 SEC (9.0-11.1)
[2024-06-02 15:08] LABS: LACTIC ACID 0.5 mmol/L (0.4-2.0)
[2024-06-02 15:09] LABS: ALANINE AMINOTRANSFERASE,ALT 16 U/L (12-78); ALBUMIN 3.4 g/dL (3.4-5.0); ALKALINE PHOSPHATASE 82 IU/L (46-116); ASPARTATE AMNIOTRANSFERASE,AST 13 U/L (15-37); BILIRUBIN TOTAL 0.3 mg/dL (0.2-1.0); BLOOD UREA NITROGEN,BUN 11 mg/dL (7-18); CALCIUM 9.3 mg/dL (8.5-10.1); CARBON DIOXIDE,CO2 32.9 mmol/L (21.0-32.0); CHLORIDE,CL 98 mmol/L (98-107); CREATININE 0.68 mg/dL (0.51-1.17); GLUCOSE RANDOM 97 mg/dL (70-99); MAGNESIUM 1.8 mg/dL (1.8-2.4); POTASSIUM,K 4.2 mmol/L (3.5-5.1); PRO B-TYPE NATRIUR PEPT,BNPPRO 182 pg/mL (0-125); PROTEIN TOTAL,TP 7.3 g/dL (6.4-8.2); SODIUM,NA 137 mmol/L (136-145)
[2024-06-02 15:10] LABS: ANION GAP 10.3 meq/L (7-15); ESTIMATED GFR 83 mL/min (>=60)
[2024-06-02] MEDS: Albuterol/Ipratropium 3.0-0.5 MG/3 ML Neb Soln NEB ONE (15:25)
[2024-06-02] MEDS ORDERED: Albuterol 6.7 GM Inhaler INH PRN (20:22)
[2024-06-03] MEDS: Aspirin 81 MG Tab.Chew PO SCH (07:47)
[2024-06-03] MEDS: Docusate Sodium 100 MG Cap PO PRN (07:47)
[2024-06-03] MEDS: Fluticasone NASAL Spray 16 GM Bottle NASBOTH SCH (07:48)
[2024-06-03] MEDS: Metoprolol Succinate 50 MG Tab.ER PO SCH (07:48)
[2024-06-03] MEDS ORDERED: Non-Formulary Medication 1 Each INH SCH (08:00)
[2024-06-03] MEDS ORDERED: Non-Formulary Medication 1 Each (Fluticasone/Umeclidin/Vilanter [Trelegy Ellipta 200-62.5- INH SCH (08:00)
[2024-06-03 08:44] LABS: ANION GAP 5.5 meq/L (7-15); CALCIUM 8.8 mg/dL (8.5-10.1); CARBON DIOXIDE,CO2 31.5 mmol/L (21.0-32.0); CREATININE 0.61 mg/dL (0.51-1.17); EST CRCL DRUG DOSING (CG) 44.91 mL/min
[2024-06-03 09:00] LABS: BASOPHILS ABSOLUTE AUTO 0.06 K/uL (0.00-0.20); BASOPHILS PERCENT AUTO 0.8 % (0.0-2.0); EOSINOPHILS ABSOLUTE AUTO 0.18 K/uL (0.00-0.50); EOSINOPHILS PERCENT AUTO 2.3 % (0.0-5.0); HEMATOCRIT 40.5 % (34.0-46.0); HEMOGLOBIN 13.1 g/dL (11.7-15.5); LYMPHOCYTES ABSOLUTE AUTO 1.34 K/uL (0.50-3.50); LYMPHOCYTES PERCENT AUTO 17.4 % (10.0-50.0); MEAN CORPUSCULAR HEMOGLOBIN 29.8 pg (28.2-33.3); MEAN CORPUSCULAR HGB CONC 32.3 g/dL (31.7-36.0); MONOCYTES ABSOLUTE AUTO 0.66 K/uL (0.00-1.00); MONOCYTES PERCENT AUTO 8.6 % (2.0-14.0); NEUTROPHILS ABSOLUTE AUTO 5.44 K/uL (1.40-7.00); NEUTROPHILS PERCENT AUTO 70.9 % (45.0-80.0); PLATELET COUNT,PLT 368 K/uL (150-350); RED CELL DISTRIBUTION WIDTH 13.2 % (11.2-14.1); WHITE BLOOD CELL COUNT,WBC 7.7 K/uL (4.0-10.2)
[2024-06-03 09:06] LABS: PROTHROMBIN TIME 9.5 SEC (9.0-11.1)
[2024-06-03] MEDS: Omeprazole 20 MG Cap.CR PO SCH (12:21)
[2024-06-03] MEDS: Cholecalciferol (Vitamin D3) 5,000 UNIT Tab PO SCH (12:21)
[2024-06-03] MEDS: Oxybutynin 5 MG Tab.ER PO SCH (19:05)
[2024-06-03] MEDS: Melatonin 3 MG Tab PO PRN (23:31)
[2024-06-04] MEDS: Sodium Chloride 0.9% 10 ML Syringe FLUSH PRN (08:34)
[2024-06-04 08:35] LABS: BASOPHILS ABSOLUTE AUTO 0.04 K/uL (0.00-0.20); BASOPHILS PERCENT AUTO 0.5 % (0.0-2.0); EOSINOPHILS ABSOLUTE AUTO 0.24 K/uL (0.00-0.50); EOSINOPHILS PERCENT AUTO 2.9 % (0.0-5.0); HEMATOCRIT 37.9 % (34.0-46.0); HEMOGLOBIN 12.3 g/dL (11.7-15.5); IMMATURE GRAN ABSOLUTE AUTO 0.02 10^3/uL (0.00-0.50); IMMATURE GRAN PERCENT AUTO 0.2 % (0.0-5.0); LYMPHOCYTES ABSOLUTE AUTO 1.28 K/uL (0.50-3.50); LYMPHOCYTES PERCENT AUTO 15.2 % (10.0-50.0); MEAN CORPUSCULAR HEMOGLOBIN 30.2 pg (28.2-33.3); MEAN CORPUSCULAR HGB CONC 32.5 g/dL (31.7-36.0); MEAN CORPUSCULAR VOLUME 93.1 fL (84.0-98.0); MONOCYTES ABSOLUTE AUTO 0.75 K/uL (0.00-1.00); MONOCYTES PERCENT AUTO 8.9 % (2.0-14.0); NEUTROPHILS ABSOLUTE AUTO 6.08 K/uL (1.40-7.00); NEUTROPHILS PERCENT AUTO 72.3 % (45.0-80.0); PLATELET COUNT,PLT 339 K/uL (150-350); RED BLOOD CELL COUNT 4.07 M/uL (3.77-5.09); RED CELL DISTRIBUTION WIDTH 13.2 % (11.2-14.1); WHITE BLOOD CELL COUNT,WBC 8.4 K/uL (4.0-10.2)
[2024-06-04 09:37] LABS: ANION GAP 3.4 meq/L (7-15); CALCIUM 8.8 mg/dL (8.5-10.1); CARBON DIOXIDE,CO2 31.6 mmol/L (21.0-32.0); CREATININE 0.58 mg/dL (0.51-1.17); EST CRCL DRUG DOSING (CG) 47.23 mL/min; POTASSIUM,K 4.5 mmol/L (3.5-5.1)
[2024-06-04 10:09] LABS: PROTHROMBIN TIME 9.8 SEC (9.0-11.1)
[2024-06-04] MEDS: Albuterol/Ipratropium 3.0-0.5 MG/3 ML Neb Soln NEB ONE (10:28)
[2024-06-04] MEDS: Acetaminophen 650 MG Tab.ER PO PRN (20:49)
[2024-06-05] MEDS: Oxybutynin 5 MG Tab.ER PO SCH (09:39)
[2024-06-05 13:04] VITALS: BP 104/61; PULSE 73
== END 2024-06-05 14:25 | disposition home or self-care (01) | DRG 641 ==
LOC: LL.ED 14:14 → UNDOADMIN 15:43 → LL.MS 15:43
PROVIDERS: ADMIT Physician Assistant; ATTEND Physician Assistant
DX: R62.7 Adult failure to thrive (principal); S22.068A Other fracture of T7-T8 thoracic vertebra, initial encounter for closed fracture; R06.02 Shortness of breath; R06.09 Other forms of dyspnea; Z74.2 Need for assistance at home and no other household member able to render care; I10 Essential (primary) hypertension; J44.9 Chronic obstructive pulmonary disease, unspecified; K21.9 Gastro-esophageal reflux disease without esophagitis; E66.9 Obesity, unspecified; Z90.49 Acquired absence of other specified parts of digestive tract; Z87.891 Personal history of nicotine dependence; N32.81 Overactive bladder; Z66 Do not resuscitate; J43.9 Emphysema, unspecified; Z88.5 Allergy status to narcotic agent; Z79.82 Long term (current) use of aspirin; Z68.28 Body mass index [BMI] 28.0-28.9, adult; Z79.51 Long term (current) use of inhaled steroids; Z79.899 Other long term (current) drug therapy
CPT/HCPCS: 36415; 71250; 80048; 80053; 83605; 83735; 83880; 85025; 85610; 87428-QW; 93005; 93010; 94640; 94761; 97161-GP; 99213; 99223; 99232; 99233; 99239; 99285; A9270-GY; J7620-GY